=== PATIENT | male | born 1950 | race Caucasian/White ===

== ENCOUNTER 2017-04-03 10:33 | Emergency (ER) | payer OTHER, MEDICARE ==
[2017-04-03 10:49] VITALS: BMI 27.2
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
[2017-04-03] MEDS ORDERED: DUONEB 0.5 MG/3 MG NEB ONE (10:58)
[2017-04-03 11:01] LABS: ABG BASE EXCESS 0.2 mmol/L (-2.0-2.0); ABG HCO3 23.3 mmol/L (22-26)
[2017-04-03 11:02] LABS: ABG ALLEN TEST POS
[2017-04-03] MEDS ORDERED: SOLU-Medrol 125 MG VIAL IVP ONE (11:11)
[2017-04-03] MEDS ORDERED: DUONEB 0.5 MG/3 MG ONE (11:11)
[2017-04-03] MEDS ORDERED: SOLU-Medrol 125 MG VIAL ONE (11:11)
[2017-04-03 11:28] LABS: BASOPHILS # (AUTO) 0.1 X10^3/uL (0.0-0.1); BASOPHILS % (AUTO) 0.8 % (0.2-1.0); EOSINOPHILS # (AUTO) 0.2 x10^3/uL (0.0-0.2); EOSINOPHILS % (AUTO) 1.6 % (0.9-2.9); HEMATOCRIT 43.2 % (42.0-54.0); HEMOGLOBIN 14.8 g/dL (13.5-18.0); LYMPHOCYTES % (AUTO) 9.2 % (21.0-51.0); MEAN CORPUSCULAR HEMOGLOBIN 31.7 pg (27.0-34.0); MEAN CORPUSCULAR HGB CONC 34.3 g/dL (33.0-35.0); MEAN CORPUSCULAR VOLUME 92.4 fL (80.0-100.0); MEAN PLATELET VOLUME 7.8 fL (7.4-11.0); NEUTROPHILS # (AUTO) 8.7 x10^3/uL (2.2-4.8); NEUTROPHILS % (AUTO) 79.4 % (42.0-75.0); PLATELET COUNT 239 X10^3/uL (150.0-450.0); RED BLOOD COUNT 4.67 X10^6/uL (4.7-6.0); RED CELL DISTRIBUTION WIDTH 13.1 % (11.6-16.5)
[2017-04-03 11:40] LABS: BLOOD UREA NITROGEN 18 mg/dL (7-18); CALCIUM 8.5 mg/dL (8.5-10.1); CARBON DIOXIDE 30.2 mmol/L (21-32); CHLORIDE 103 mmol/L (98-107); COR NA(FOR HYPERGLY) 140 mmol/L (136-145); CREATININE 0.93 mg/dL (0.70-1.30); GLUCOSE 184 mg/dL (65-99); SODIUM 138 mmol/L (136-145); TROPONIN I < 0.02 ng/mL (0-1.5); eGFR BLACK RACES > 60 (>60); eGFR NON BLACK RACES > 60 (>60)
[2017-04-03 11:41] LABS: ALANINE AMINOTRANSFERASE 15 Units/L (12-78); ALBUMIN 3.2 g/dL (3.4-5.0); ALKALINE PHOSPHATASE 84 Units/L (46-116); ASPARTATE AMINO TRANSFERASE 15 Units/L (15-37); CKMB % 1.8 % (<4); COR CA(FOR HYPOALB) 9.1 mg/dL (8.5-10.1); CREATINE KINASE 56 Units/L (39-308); CREATINE KINASE MB < 1.0 ng/mL (0-4.0); TOTAL PROTEIN 7.3 g/dL (6.4-8.2)
[2017-04-03 11:44] LABS: B-TYPE NATRIURETIC PEPTIDE 67.9 pg/mL (0-79)
--- NOTE | 2017-04-03 11:46 | RAD ---
Chest, one view Indication: Shortness of breath Comparison: CT chest October 08, 2016 Findings: There is new dense airspace consolidation of the left lower lobe with air bronchograms. Sm all suspected bilateral effusions are also present. There are chronic appearing interstitial marking s throughout the remaining aerated lungs, compatible with pulmonary fibrosis. The cardiac silhouette is obscured by the left lower lobe infiltrate. The regional skeleton appears intact. Impression: 1. New dense airspace consolidation of the left lower lobe is likely on the basis of pneumonia. If t he patient does not present with clinical signs of infection, further evaluation with contrast CT is recommended given the possibility of an esophageal mass on the prior CT examination. Correlation wi patient history as well as follow up to complete resolution is recommended. 2. Small suspected bilateral effusions. Reported By:
[2017-04-03] MEDS ORDERED: FORTAZ or TAZICEF INJ 1 GM in NS 50 ML IV + SPIKE MINIBAG* 50 ML IV ONE (11:52)
[2017-04-03] MEDS ORDERED: NS 50 ML IV 50 ML IV ONE (12:50)
[2017-04-03] MEDS ORDERED: FORTAZ or TAZICEF INJ ONE (12:50)
[2017-04-03] MEDS ORDERED: NS 1000 ML 1,000 ML ONE (12:55)
[2017-04-03] MEDS ORDERED: NS 1000 ML 1,000 ML IV SCH (13:00)
[2017-04-03 13:39] VITALS: BP 159/83
[2017-04-03] MEDS ORDERED: ZOFRAN INJ 4 MG VIAL IVP ONE (13:39)
[2017-04-03] MEDS ORDERED: ZOFRAN INJ 4 MG VIAL ONE (13:41)
== END 2017-04-03 13:44 | disposition short-term general hospital (02) ==
LOC: ER 10:48
DX: J18.1 Lobar pneumonia, unspecified organism (principal); J84.10 Pulmonary fibrosis, unspecified; R94.31 Abnormal electrocardiogram [ECG] [EKG]
CPT/HCPCS: 36415; 36600; 71010; 80053; 82550; 82553; 82803; 83880; 84484; 85025; 87040; 93005; 93010; 94640; 96365; 96374; 96375; 99284; 99285; A4222; J0713; J2405; J2930; J7620

== ENCOUNTER 2017-04-26 12:01 | Inpatient (IN) | payer OTHER, MEDICARE ==
[2017-04-26] MEDS: NS 1000 ML 1,000 ML IV SCH (13:15)
[2017-04-26 13:36] LABS: BASOPHILS # (AUTO) 0.1 X10^3/uL (0.0-0.1); BASOPHILS % (AUTO) 0.6 % (0.2-1.0); EOSINOPHILS # (AUTO) 0.3 x10^3/uL (0.0-0.2); EOSINOPHILS % (AUTO) 3.3 % (0.9-2.9); HEMATOCRIT 40.1 % (42.0-54.0); HEMOGLOBIN 13.5 g/dL (13.5-18.0); LYMPHOCYTES # (AUTO) 1.1 X10^3/uL (1.3-2.9); LYMPHOCYTES % (AUTO) 10.7 % (21.0-51.0); MEAN CORPUSCULAR HEMOGLOBIN 31.2 pg (27.0-34.0); MEAN CORPUSCULAR HGB CONC 33.8 g/dL (33.0-35.0); MEAN CORPUSCULAR VOLUME 92.2 fL (80.0-100.0); MEAN PLATELET VOLUME 7.8 fL (7.4-11.0); MONOCYTES % (AUTO) 9.4 % (0.0-13.0); NEUTROPHILS # (AUTO) 7.8 x10^3/uL (2.2-4.8); PLATELET COUNT 187 X10^3/uL (150.0-450.0); RED BLOOD COUNT 4.34 X10^6/uL (4.7-6.0); RED CELL DISTRIBUTION WIDTH 13.7 % (11.6-16.5); WHITE BLOOD COUNT 10.3 X10^3/uL (3.6-10.0)
[2017-04-26 13:43] LABS: ABG ALLEN TEST POS; ABG BASE EXCESS 5.6 mmol/L (-2.0-2.0); ABG HCO3 29.8 mmol/L (22-26)
[2017-04-26 13:45] LABS: ALANINE AMINOTRANSFERASE 18 Units/L (12-78); ALKALINE PHOSPHATASE 87 Units/L (46-116); ASPARTATE AMINO TRANSFERASE 13 Units/L (15-37); BLOOD UREA NITROGEN 14 mg/dL (7-18); CALCIUM 8.1 mg/dL (8.5-10.1); CARBON DIOXIDE 30.2 mmol/L (21-32); CHLORIDE 103 mmol/L (98-107); COR CA(FOR HYPOALB) 8.9 mg/dL (8.5-10.1); COR NA(FOR HYPERGLY) 141 mmol/L (136-145); CREATININE 0.91 mg/dL (0.70-1.30); GLUCOSE 210 mg/dL (65-99); SODIUM 138 mmol/L (136-145); TOTAL PROTEIN 6.7 g/dL (6.4-8.2); eGFR BLACK RACES > 60 (>60); eGFR NON BLACK RACES > 60 (>60)
[2017-04-26] MEDS ORDERED: PROVENTIL NEB TX 0.083% 2.5MG/ 3ML NEB PRN (14:05)
--- NOTE | 2017-04-26 14:46 | RAD ---
Chest, one view Indication: Hypoxia and shortness of breath Comparison: April 03, 2017 Findings: Patchy left lower lobe opacities appear stable to only minimally improved since prior exam . Chronic bilateral interstitial opacities, compatible with pulmonary fibrosis appear essentially un changed. No new focal infiltrate, significant effusion or pneumothorax is identified. The cardiac si lhouette is stable in size. Impression: Persistent left lower lobe infiltrate, stable to only minimally improved since April 03, 2017. Furthe r evaluation with CT is again recommended, if clinically indicated. Reported By:
[2017-04-26 15:12] LABS: BILIRUBIN,URINE NEGATIVE (NEGATIVE); BLOOD/HEMOGLOBIN,URINE NEGATIVE (NEGATIVE); GLUCOSE, URINE 3+ (NEGATIVE); KETONES,URINE NEGATIVE (NEGATIVE); LEUKOCYTE ESTERASE ,URINE NEGATIVE (NEGATIVE); NITRITES,URINE NEGATIVE (NEGATIVE); PROTEIN,URINE 1+ (NEGATIVE); UROBILINOGEN,URINE NORMAL (NORMAL)
[2017-04-26 15:21] LABS: AMORPHOUS SEDIMENT,UR 1+ /HPF (NEGATIVE); APPEARANCE,URINE HAZY (CLEAR); BACTERIA,URINE TRACE /HPF (NEGATIVE); COLOR,URINE YELLOW (YELLOW); RBC,URINE 0-2 /HPF (NEGATIVE); SQUAMOUS EPITHELIAL CELL,UR RARE /HPF (NEGATIVE)
[2017-04-26] MEDS ORDERED: LORAZEPAM 2 MG PO PRN (16:08)
[2017-04-26 16:16] VITALS: BMI 25.4
[2017-04-26] MEDS ORDERED: SALINE 3% 15 ML NEB TX ONE (16:35)
[2017-04-26] MEDS: DUONEB 0.5 MG/3 MG NEB SCH ×2 (16:52→21:07)
[2017-04-26] MEDS: PIRFENIDONE PO SCH (16:56)
[2017-04-26] MEDS ORDERED: SALINE 3% 15 ML NEB TX NEB ONE (16:56)
[2017-04-26] MEDS ORDERED: GLUCOPHAGE ONE (17:39)
[2017-04-26] MEDS: GLUCOPHAGE PO SCH (17:46)
[2017-04-26] MEDS: SNACK - Diabetic Appropriate PO SCH (19:52)
[2017-04-26] MEDS: JANUVIA PO SCH (20:59)
[2017-04-26] MEDS: CRESTOR TAB 10 MG PO SCH (20:59)
[2017-04-26] MEDS: FLONASE NASAL SPRAY ENOSTRIL SCH (21:00)
[2017-04-26] MEDS ORDERED: PATIENT'S HOME MEDICATION (Metformin Hcl [Metformin Hcl Er] 500 MG) PO SCH (21:00)
[2017-04-26] MEDS: ATIVAN TAB 1 MG PO PRN (21:01)
[2017-04-26] MEDS: PULMICORT NEB TX 0.5 MG NEB SCH (21:07)
--- NOTE | 2017-04-26 21:55 | DR.H&P ---
H&P - History & Physical for Day of: H&P Date: 04/26/17 - Chief Complaint Chief Complaint: SHORTNESS OF BREATH, COUGH - Allergies Allergies/Adverse Reactions: Allergies Allergy/AdvReac Type Severity Reaction Status Date / Time No Known Drug Allergies Allergy Verified 04/03/17 13:40 - History of Present Illness History of Present Illness: IS A 66 YEAR OLD PATIENT OF OURS. HE WAS A DIRECT ADMISSION FOR COMPLAINTS OF SHORTNESS OF BREATH AND COUGH. FAMILY REPORTED THAT PATIENT WAS AT HOME VISITING WITH FAMILY WHEN HE SUDDENLY BECAME SHORT OF BREATH. PATIENT REPORTS THAT HIS OXYGEN SATURATION DROPPED TO 77% ON 4LPM NASAL CANNULA. HE REPORTS A NON PRODUCTIVE COUGH AND FEVER FOR THE PAST SEVERAL DAYS. ON EXAMINATION, LUNGS WERE NOTED WITH WHEEZING BILATERALLY. PATIENT HAS A HISTORY OF PULMONARY FIBROSIS AND END STAGE RESPIRATORY FAILURE. HE WAS RECENTLY RELEASED FROM [facility] IN [place], [place]. WE WILL OBTAIN RECORDS WITH PATIENT'S PERMISSION. WE ADMITTED PATIENT FOR FURTHER TREATMENT AND EVALUATION. WE PLANNED TO CHECK CBC, CMP, ABG, AND CHEST XRAY ON ADMISSION. ON ADMISSION, VITALS WERE 99.5, 99, 23, 90%NC 2LPM, 127/86. CBC WNL EXCEPT WBC 10.3, RBC 4.34, Hct 40.1. CMP WNL EXCEPT Glucose 210, Calcium 8.1, AST 13, Albumin 3.0, A/G Ratio 0.8. ABG REPORTS PH 7.470, PO2 48.0, HCO3 29.8, O2 saturation 86.0, Base Excess 5.6. BLOOD CULTURES AND SPUTUM CULTURES ARE PENDING. CHEST XRAY WAS OBTAINED AND REPORTED PERSISTENT LEFT LOWER LOBE INFILTRATE, STABLE TO ONLY MINIMALLY IMPROVED SINCE APRIL 03, 2017 XRAY. PATIENT WAS STARTED ON SUPPLEMENTAL OXYGEN, NORMAL SALINE AT 50ML/HR, DUONEB AND PULMICORT NEB TX. WE WILL REVIEW HOME MEDICATIONS, RECHECK LABS, AND FOLLOW UP WITH PATIENT IN AM. - Past Medical History Past Medical History: Anxiety, Arthritis, COPD, Depression, Diabetes, Dyslipidemia, Gout, Sleep Apnea Additional Medical History: EMPHYSEMA, IDIOPATHIC PULMONARY FIBROSIS, - Past Surgical History Surgical History: Other Additional Surgical History: LEFT FINGER SURGERY, NERVE REPAIR, HYDROCELE - Family History Family Medical History: AR, Coronary Artery Disease - Social History Does patient currently use any type of tobacco product: No Have you used tobacco products in the last 12 months: No Type of Tobacco Use: None How many years tobacco product used: 20 Does any household member use tobacco: Yes Alcohol Use: Heavy Drug Use: Prescription Drugs, Methamphetamine, Marijuana - Medications Home Medications: Albuterol Sulfate [VENTOLIN or PROAIR HFA Inhaler *] 2 puff PO Q4H PRN 04/26/17 [History Confirmed 04/26/17] Pirfenidone [Esbriet] 3 tab PO TIDWM 04/26/17 [History Confirmed 04/26/17] - Review of Systems Constitutional: Fever, Weakness Eyes: No Symptoms Reported. denies: See HPI, Pain, Vision Change, Conjunctivae Inflammation, Eyelid Inflammation, Redness, Other ENT: No Symptoms Reported. denies: See HPI, Ear Pain, Ear Discharge, Nose Pain , Nose Discharge, Nose Congestion, Mouth Pain, Mouth Swelling, Throat Pain, Throat Swelling, Other Respiratory: See HPI, Cough, Shortness of Breath, Wheezing Cardiovascular: No Symptoms Reported. denies: Chest Pain, See HPI, Palpitations , Orthopnea, Paroxysmal Noc. Dyspnea, Edema, Light Headedness, Other Gastrointestinal: No Symptoms Reported. denies: See HPI, Nausea, Vomiting, Abdominal Pain, Diarrhea, Constipation, Melena, Hematochezia, Other Genitourinary: No Symptoms Reported. denies: See HPI, Dysuria, Frequency, Incontinence, Hematuria, Retention, Other Musculoskeletal: No Symptoms Reported. denies: See HPI, Shoulder Pain, Arm Pain , Back Pain, Hand Pain, Leg Pain, Foot Pain, Neck Pain, Other Skin: No Symptoms Reported. denies: See HPI, Rash, Lesions, Jaundice, Bruising , Wound, Ecchymosis, Other Neurological: No Symptoms Reported. denies: See HPI, Weakness, Numbness, Incoordination, Change in Speech, Confusion, Seizures, Other - Physical Exam Vital Signs: Temperature 98.7 F Pulse Rate [Right Brachial] 103 Pulse Rate 91 Respiratory Rate 21 Blood Pressure [Right Arm] 141/86 Blood Pressure 159/83 O2 Sat by Pulse Oximetry 90 Oriented: Normal. negative: Time, Person, Place, Not Oriented, Unable to test, Other Eyes: Normal. negative: Blurred Vision, Diplopia, Discharge, Pain, Redness, Photophobia, Other Ear: Normal. negative: Right, Left, Swelling, Ecchymosis, Hemotypanum, Abrasion , Laceration Nose: Normal. negative: Injected, Discharge, Blood, Other Throat: Normal. negative: Tonsillar Hypertrophy, Red, Exudate, Dry, Other Respiratory: Wheezes Throughout. negative: Clear Throughout, Diminished Throughout, Rhonchi Throughout, Rales Throughout, RUL Clear, RML Clear, RLL Clear, MARGO Clear, LML Clear, LLL Clear, RUL Diminished, RML Diminished, RLL Diminished, MARGO Diminished, LML Diminished, LLL Diminished, RUL Absent, RML Absent, RLL Absent, MARGO Absent, LML Absent, LLL Absent, RUL Rhonchi, RML Rhonchi , RLL Rhonchi, MARGO Rhonchi, LML Rhonchi, LLL Rhonchi, RUL Insp. Wheeze, RML Insp. Wheeze, RLL Insp. Wheeze, MARGO Insp.Wheeze, LML Insp.Wheeze, LLL Insp.Wheeze, RUL Exp. Wheeze, RML Exp. Wheeze, RLL Exp. Wheeze, MARGO Exp. Wheeze , LML Exp. Wheeze, LLL Exp. Wheeze, RUL Rales, RML Rales, RLL Rales, MARGO Rales, LML Rales, LLL Rales, RUL Rub, RML Rub, RLL Rub, MARGO Rub, LML Rub, LLL Rub, RUL Squeak, RML Squeak, RLL Squeak, MARGO Squeak, LML Squeak, LLL Squeak Cardiovascular: Normal. negative: Tachycardia, Bradycardia, Irregular, S3, S4, Systolic, Diastolic, Murmur, Edema, Other : Normal. negative: Dysuria, Hematuria, Frequency, Discharge, Testicular Pain , Bleeding, , Other Auscultation: Bowel Sounds: Normal. negative: Bruit, Absent, Increased, Decreased, High Pitched, Other Palpation: Normal. negative: Spleen Enlarged, Liver Enlarged, Mass Pulsatile, Other Tenderness: Normal. negative: Diffuse, RUQ, RLQ, LUQ, LLQ, Epigastric, Periumbilical, Suprapubic, Mild, Moderate, Severe, Rebound, Guarding, Rigidity, Other Skin: Normal. negative: Decreased Turgur, Rash, Papular, Macular, Maculopapular , Vesicular, Pustular, Petechial, Red, Tender, Hot, Diaphoresis, Wound, Bruising , Ecchymosis, Other Musculoskeletal: Normal. negative: Right, Left, Shoulder, Clavicle, Arm, Elbow , Forearm, Wrist, Hand, Hip, Thigh, Knee, Leg, Ankle, Foot, Back:Thoracic, Back: Lumbar, Back:Midline, Back:Paraspinous, Pelvis, Swelling, Tender, Deformity, Pulse Deficit, Motor Deficit, Sensory Deficit, Instability, Crepitance Psychiatric: Normal. negative: Anxiety, Depression, Agitation, Other Mood Description: Calm. negative: Angry, Apathetic, Depressed, Fearful, Flat, Happy, Hostile, Sad, Suspicious, Withdrawn, Anxious, Appropriate, Labile Affect: Normal. negative: Angry, Anxious, Depressed, Flat, Hysterical, Quiet, Violent Speech Pattern: Clear. negative: Appropriate, Unclear, Inappropriate, Delayed, Slurred, Excessive, Aphasic, Artificially Ventilated - Assessment/Plan (1) Pulmonary fibrosis Status: Acute Plan: SUPPLEMENTAL OXYGEN, DUONEB AND PULMICORT INHALERS, MONITOR ABG AND LABS, CONTINUE TO MONITOR PATIENT. (2) [id number] respiratory failure Qualifiers: Respiratory failure complication: hypoxia Qualified Code(s): J96.21 - Acute and chronic respiratory failure with hypoxia Status: Acute Plan: SUPPLEMENTAL OXYGEN, DUONEB AND PULMICORT INHALERS, MONITOR ABG AND LABS, CONTINUE TO MONITOR PATIENT.
[2017-04-27] MEDS: NORCO 10/325 TAB PO PRN ×2 (04:54→11:56)
[2017-04-27] MEDS ORDERED: GLUCOPHAGE ONE ×3 (06:04→17:20)
[2017-04-27 06:35] LABS: ALANINE AMINOTRANSFERASE 16 Units/L (12-78); ALKALINE PHOSPHATASE 76 Units/L (46-116); ASPARTATE AMINO TRANSFERASE 13 Units/L (15-37); BASOPHILS # (AUTO) 0.1 X10^3/uL (0.0-0.1); BASOPHILS % (AUTO) 0.6 % (0.2-1.0); BLOOD UREA NITROGEN 9 mg/dL (7-18); CALCIUM 8.2 mg/dL (8.5-10.1); CARBON DIOXIDE 27.2 mmol/L (21-32); CHLORIDE 102 mmol/L (98-107); COR NA(FOR HYPERGLY) 139 mmol/L (136-145); CREATININE 0.82 mg/dL (0.70-1.30); EOSINOPHILS # (AUTO) 0.2 x10^3/uL (0.0-0.2); EOSINOPHILS % (AUTO) 2.2 % (0.9-2.9); GLUCOSE 170 mg/dL (65-99); HEMATOCRIT 39.4 % (42.0-54.0); HEMOGLOBIN 13.4 g/dL (13.5-18.0); LYMPHOCYTES # (AUTO) 1.2 X10^3/uL (1.3-2.9); LYMPHOCYTES % (AUTO) 10.8 % (21.0-51.0); MEAN CORPUSCULAR HEMOGLOBIN 31.5 pg (27.0-34.0); MEAN CORPUSCULAR HGB CONC 34.1 g/dL (33.0-35.0); MEAN CORPUSCULAR VOLUME 92.3 fL (80.0-100.0); MEAN PLATELET VOLUME 8.4 fL (7.4-11.0); MONOCYTES % (AUTO) 9.6 % (0.0-13.0); NEUTROPHILS # (AUTO) 8.3 x10^3/uL (2.2-4.8); NEUTROPHILS % (AUTO) 76.8 % (42.0-75.0); PLATELET COUNT 177 X10^3/uL (150.0-450.0); RED BLOOD COUNT 4.27 X10^6/uL (4.7-6.0); RED CELL DISTRIBUTION WIDTH 13.7 % (11.6-16.5); SODIUM 137 mmol/L (136-145); TOTAL PROTEIN 6.8 g/dL (6.4-8.2); WHITE BLOOD COUNT 10.9 X10^3/uL (3.6-10.0); eGFR BLACK RACES > 60 (>60); eGFR NON BLACK RACES > 60 (>60)
[2017-04-27] MEDS: JANUVIA PO SCH (08:07)
[2017-04-27] MEDS: GLUCOPHAGE PO SCH ×2 (08:07→17:32)
[2017-04-27] MEDS: FLONASE NASAL SPRAY ENOSTRIL SCH (08:07)
[2017-04-27] MEDS: PIRFENIDONE PO SCH ×3 (08:08→17:34)
[2017-04-27] MEDS: ATIVAN TAB 1 MG PO PRN ×3 (08:47→21:06)
[2017-04-27] MEDS ORDERED: JANUVIA PO SCH (09:00)
[2017-04-27] MEDS: ZOFRAN INJ 4 MG VIAL IVP PRN ×2 (09:37→20:30)
[2017-04-27] MEDS: PULMICORT NEB TX 0.5 MG NEB SCH ×2 (09:44→21:00)
[2017-04-27] MEDS: DUONEB 0.5 MG/3 MG NEB SCH ×4 (09:44→21:00)
[2017-04-27] MEDS: NS 1000 ML 1,000 ML IV SCH ×3 (17:34→19:14)
[2017-04-27] MEDS: SNACK - Diabetic Appropriate PO SCH (19:30)
[2017-04-27] MEDS: CRESTOR TAB 10 MG PO SCH (21:06)
[2017-04-27] MEDS: LANTISEPTIC TOP SCH (21:33)
[2017-04-27] MEDS ORDERED: TYLENOL 325 MG TAB PO PRN (22:26)
--- NOTE | 2017-04-27 23:21 | RAD ---
EXAM: Chest X-ray INDICATION: Shortness of breath COMPARISION: Prior exam from April 26, 2017 TECHNIQUE: AP, single view FINDINGS: Coarse interstitial markings are seen throughout both lungs. Consolidation is identified in the left lingula and both lower lobes. There is a small left pleural effusion. The cardiac silhouette is mil dly enlarged. The mediastinum appears unremarkable. No pneumothorax. The regional skeleton is intact . IMPRESSION: There is cardiomegaly with diffuse coarse interstitial markings bilaterally and areas consolidation in both lung bases. Findings may be secondary to congestive heart failure or pneumonia. Reported By:
[2017-04-27] MEDS ORDERED: MAXIPIME VIAL 1 GM ONE (23:33)
[2017-04-27] MEDS ORDERED: NS 50 ML IV 50 ML IV ONE (23:36)
[2017-04-27] MEDS: SOLU-Medrol 125 MG VIAL IVP SCH (23:57)
[2017-04-27] MEDS: MAXIPIME 1 GM IV PREMIX 1 GM/50 ML BAG IV SCH (23:57)
[2017-04-28] MEDS ORDERED: TYLENOL SUPP 650 MG PR PRN (00:01)
[2017-04-28] MEDS ORDERED: LASIX IVP ONE (00:37)
[2017-04-28] MEDS ORDERED: HALDOL INJ IM ONE (01:07)
[2017-04-28 01:10] LABS: ABG ALLEN TEST POS; ABG HCO3 25.2 mmol/L (22-26)
[2017-04-28] MEDS ORDERED: HALDOL INJ ONE (01:15)
[2017-04-28 01:16] LABS: BILIRUBIN,URINE NEGATIVE (NEGATIVE); BLOOD/HEMOGLOBIN,URINE 2+ (NEGATIVE); GLUCOSE, URINE 3+ (NEGATIVE); KETONES,URINE 3+ (NEGATIVE); LEUKOCYTE ESTERASE ,URINE NEGATIVE (NEGATIVE); NITRITES,URINE NEGATIVE (NEGATIVE); PROTEIN,URINE 2+ (NEGATIVE); UROBILINOGEN,URINE NORMAL (NORMAL)
[2017-04-28 01:18] LABS: APPEARANCE,URINE CLEAR (CLEAR); COLOR,URINE YELLOW (YELLOW)
[2017-04-28 01:22] LABS: BACTERIA,URINE TRACE /HPF (NEGATIVE); MUCUS,URINE MANY /HPF (NEGATIVE); RBC,URINE 0-3 /HPF (NEGATIVE); SQUAMOUS EPITHELIAL CELL,UR RARE /HPF (NEGATIVE)
[2017-04-28] MEDS ORDERED: HALDOL INJ IVP ONE (01:29)
[2017-04-28] MEDS ORDERED: ZITHROMAX INJ 500 MG VIAL IV ONE (01:33)
[2017-04-28] MEDS ORDERED: NS 250 ML IV 250 ML IV ONE (01:33)
[2017-04-28] MEDS: ZITHROMAX INJ 500 MG VIAL 500 MG in NS 250 ML IV 250 ML IV SCH ×2 (01:40→09:39)
[2017-04-28] MEDS ORDERED: ATIVAN INJ 2 MG VIAL IVP ONE (01:45)
[2017-04-28] MEDS: LANTISEPTIC TOP SCH ×3 (05:19→21:20)
[2017-04-28] MEDS: SOLU-Medrol 125 MG VIAL IVP SCH ×2 (05:19→13:35)
[2017-04-28] MEDS: HumuLIN R SUBCUT PRN ×3 (05:33→20:14)
[2017-04-28 05:37] LABS: BASOPHILS % (AUTO) 0.2 % (0.2-1.0); HEMATOCRIT 40.3 % (42.0-54.0); HEMOGLOBIN 13.6 g/dL (13.5-18.0); LYMPHOCYTES # (AUTO) 0.5 X10^3/uL (1.3-2.9); LYMPHOCYTES % (AUTO) 5.2 % (21.0-51.0); MEAN CORPUSCULAR HEMOGLOBIN 31.6 pg (27.0-34.0); MEAN CORPUSCULAR HGB CONC 33.6 g/dL (33.0-35.0); MEAN CORPUSCULAR VOLUME 93.9 fL (80.0-100.0); MONOCYTES # (AUTO) 0.4 x10^3/uL (0.3-0.8); MONOCYTES % (AUTO) 3.6 % (0.0-13.0); NEUTROPHILS # (AUTO) 9.6 x10^3/uL (2.2-4.8); PLATELET COUNT 150 X10^3/uL (150.0-450.0); RED CELL DISTRIBUTION WIDTH 13.8 % (11.6-16.5); WHITE BLOOD COUNT 10.5 X10^3/uL (3.6-10.0)
[2017-04-28 05:42] LABS: ALANINE AMINOTRANSFERASE 16 Units/L (12-78); ALBUMIN 2.9 g/dL (3.4-5.0); ALKALINE PHOSPHATASE 75 Units/L (46-116); ASPARTATE AMINO TRANSFERASE 15 Units/L (15-37); BLOOD UREA NITROGEN 12 mg/dL (7-18); CALCIUM 8.3 mg/dL (8.5-10.1); CARBON DIOXIDE 26.8 mmol/L (21-32); CHLORIDE 101 mmol/L (98-107); COR CA(FOR HYPOALB) 9.2 mg/dL (8.5-10.1); COR NA(FOR HYPERGLY) 141 mmol/L (136-145); CREATININE 1.21 mg/dL (0.70-1.30); GLUCOSE 303 mg/dL (65-99); SODIUM 136 mmol/L (136-145); TOTAL PROTEIN 7.2 g/dL (6.4-8.2); eGFR BLACK RACES > 60 (>60); eGFR NON BLACK RACES > 60 (>60)
[2017-04-28 06:00] LABS: BAND NEUTROPHILS % 3 % (0-10); PLATELET MORPHOLOGY COMMENT NORMAL (NORMAL)
[2017-04-28] MEDS ORDERED: GLUCOPHAGE ONE ×2 (07:47→16:27)
[2017-04-28] MEDS: ATIVAN TAB 1 MG PO PRN ×3 (07:51→20:02)
[2017-04-28] MEDS: GLUCOPHAGE PO SCH ×2 (07:51→16:34)
[2017-04-28] MEDS: PIRFENIDONE PO SCH ×3 (07:52→16:35)
[2017-04-28] MEDS: JANUVIA PO SCH (09:40)
[2017-04-28] MEDS: FLONASE NASAL SPRAY ENOSTRIL SCH (09:40)
[2017-04-28] MEDS: XOPENEX 1.25 MG/3 ML NEBULE NEB SCH ×4 (10:03→21:09)
[2017-04-28] MEDS: PULMICORT NEB TX 0.5 MG NEB SCH ×2 (10:03→21:09)
[2017-04-28] MEDS: MAXIPIME 1 GM IV PREMIX 1 GM/50 ML BAG IV SCH ×2 (11:00→20:01)
[2017-04-28] MEDS ORDERED: NS 50 ML IV + SPIKE MINIBAG* 50 ML IV ONE ×2 (11:31→19:50)
[2017-04-28] MEDS: MILK OF MAGNESIA PO SCH (15:40)
[2017-04-28] MEDS: CRESTOR TAB 10 MG PO SCH (20:01)
[2017-04-28] MEDS: SNACK - Diabetic Appropriate PO SCH (20:02)
[2017-04-28] MEDS: COLACE CAP 100 MG PO SCH (20:02)
[2017-04-29] MEDS: ATIVAN TAB 1 MG PO PRN ×4 (01:29→20:41)
[2017-04-29] MEDS: LANTISEPTIC TOP SCH ×3 (05:00→22:19)
[2017-04-29] MEDS: HumuLIN R SUBCUT PRN ×3 (05:00→15:56)
[2017-04-29 05:24] LABS: ALANINE AMINOTRANSFERASE 16 Units/L (12-78); ALBUMIN 2.7 g/dL (3.4-5.0); ALKALINE PHOSPHATASE 74 Units/L (46-116); ASPARTATE AMINO TRANSFERASE 14 Units/L (15-37); BLOOD UREA NITROGEN 22 mg/dL (7-18); CALCIUM 8.8 mg/dL (8.5-10.1); CARBON DIOXIDE 29.6 mmol/L (21-32); CHLORIDE 104 mmol/L (98-107); COR CA(FOR HYPOALB) 9.8 mg/dL (8.5-10.1); COR NA(FOR HYPERGLY) 142 mmol/L (136-145); CREATININE 0.86 mg/dL (0.70-1.30); GLUCOSE 245 mg/dL (65-99); SODIUM 139 mmol/L (136-145); TOTAL PROTEIN 6.9 g/dL (6.4-8.2); eGFR BLACK RACES > 60 (>60); eGFR NON BLACK RACES > 60 (>60)
[2017-04-29 05:50] LABS: BASOPHILS % (AUTO) 0.2 % (0.2-1.0); HEMATOCRIT 38.9 % (42.0-54.0); HEMOGLOBIN 12.9 g/dL (13.5-18.0); LYMPHOCYTES # (AUTO) 0.9 X10^3/uL (1.3-2.9); LYMPHOCYTES % (AUTO) 5.1 % (21.0-51.0); MEAN CORPUSCULAR HEMOGLOBIN 31.1 pg (27.0-34.0); MEAN CORPUSCULAR HGB CONC 33.1 g/dL (33.0-35.0); MEAN PLATELET VOLUME 8.6 fL (7.4-11.0); MONOCYTES # (AUTO) 1.4 x10^3/uL (0.3-0.8); MONOCYTES % (AUTO) 7.6 % (0.0-13.0); NEUTROPHILS # (AUTO) 15.8 x10^3/uL (2.2-4.8); NEUTROPHILS % (AUTO) 87.1 % (42.0-75.0); PLATELET COUNT 197 X10^3/uL (150.0-450.0); RED BLOOD COUNT 4.14 X10^6/uL (4.7-6.0); RED CELL DISTRIBUTION WIDTH 13.8 % (11.6-16.5)
[2017-04-29 06:03] LABS: WHITE BLOOD COUNT 19.1 X10^3/uL (3.6-10.0)
[2017-04-29 06:04] LABS: PLATELET MORPHOLOGY COMMENT NORMAL (NORMAL)
--- NOTE | 2017-04-29 06:58 | RAD ---
HISTORY: Shortness of breath, low O2 sats Study: Chest AP portable Comparison: April 27, 2017 Findings: The heart remains enlarged. Mild pulmonary venous congestion is present. The lungs are hypoinflated. Confluent infiltrates are present in the right lung base more prominent than on the prior examinati on. Similar findings are present in the left lung base unchanged from the prior examination. The upp er lung lizama are clear. These findings are superimposed on interstitial lung changes. No pleural e ffusions are identified. The bony thorax is unremarkable. IMPRESSION: Increasing consolidation in the right lung base Left basilar lung infiltrate unchanged Hypo inflation Cardiomegaly without definite congestive heart failure Reported By:
[2017-04-29] MEDS ORDERED: GLUCOPHAGE ONE ×2 (07:43→17:17)
[2017-04-29] MEDS: GLUCOPHAGE PO SCH ×2 (07:47→16:59)
[2017-04-29] MEDS: PIRFENIDONE PO SCH ×3 (07:47→17:00)
[2017-04-29] MEDS ORDERED: NS 500 ML IV 500 ML IV ONE (09:00)
[2017-04-29] MEDS: PULMICORT NEB TX 0.5 MG NEB SCH ×2 (09:03→21:09)
[2017-04-29] MEDS: XOPENEX 1.25 MG/3 ML NEBULE NEB SCH ×4 (09:03→21:11)
[2017-04-29] MEDS: JANUVIA PO SCH (09:21)
[2017-04-29] MEDS: FLONASE NASAL SPRAY ENOSTRIL SCH (09:21)
[2017-04-29] MEDS: MILK OF MAGNESIA PO SCH (09:22)
[2017-04-29] MEDS: MAXIPIME 1 GM IV PREMIX 1 GM/50 ML BAG IV SCH ×2 (09:22→20:41)
[2017-04-29] MEDS: ZITHROMAX INJ 500 MG VIAL 500 MG in NS 250 ML IV 250 ML IV SCH (09:22)
--- NOTE | 2017-04-29 10:42 | PCM.PROG ---
Progress Note - Progress Note for Day of Date: 04/29/17 - Subjective Subjective: WAS A DIRECT ADMISSION FOR RESPIRATORY FAILURE AND PULMONARY FIBROSIS. HE WAS ALERT AND ORIENTED, SITTING UP IN BED ON MORNING ROUNDS. HE IS NOTED WEARING NON-REBREATHER AT THIS TIME. PATIENT REPORTS SHORTNESS OF BREATH, BUT STATES THAT HE FEELS BETTER THAN HE HAS SINCE SATURDAY. LUNGS ARE NOTED WITH WHEEZING BILATERALLY ON AUSCULTATION. VITALS THIS AM ARE 99.2-89-25-94%-118/65. CBC WNL EXCEPT WBC CRITICALLY HIGH AT 19.1-RBC 4.14, HGB 12.9, HCT 38.9. CMP WNL EXCEPT BUN 22, GLUCOSE 245, AST 14, ALBUMIN 2.7. CHEST XRAY REPORTS INCREASING CONSOLIDATION IN THE RIGHT LUNG BASE, LEFT BASILAR LUNG INFILTRATE UNCHANGED, HYPOINFLATION, CARDIOMEGALY WITHOUT DEFINITE CONGESTIVE HEART FAILURE. WE WILL CONTINUE WITH CURRENT PLAN OF CARE, RECHECK LABS, AND FOLLOW UP WITH PATIENT IN AM. - Past Medical Family Social History Past Med/Fam/Surg Hx: No changes since H&P Allergies: Allergies No Known Drug Allergies Allergy (Verified 04/03/17 13:40) - Review of Systems ROS: No change since H&P - Vital Signs and I&O's Vital Signs: Temperature 98.0 F Pulse Rate [Right Brachial] 94 Pulse Rate 99 Respiratory Rate 25 Blood Pressure [Right Arm] 110/71 Blood Pressure 159/83 O2 Sat by Pulse Oximetry 96 Intake and Output: Intake & Output 04/26/17 04/27/17 04/28/17 04/29/17 11:59 11:59 11:59 11:59 Intake Total 510 1312 1390 Output Total 1100 2975 925 Balance -590 -1663 465 - Physical Exam Oriented: Normal. negative: Time, Person, Place, Not Oriented, Unable to test, Other Eyes: Normal. negative: Blurred Vision, Diplopia, Discharge, Pain, Redness, Photophobia, Other Ear: Normal. negative: Right, Left, Swelling, Ecchymosis, Hemotypanum, Abrasion , Laceration Nose: Normal. negative: Injected, Discharge, Blood, Other Throat: Normal. negative: Tonsillar Hypertrophy, Red, Exudate, Dry, Other Respiratory: Right, Left, Wheezes Cardiovascular: Normal. negative: Tachycardia, Bradycardia, Irregular, S3, S4, Systolic, Diastolic, Murmur, Edema, Other : Normal. negative: Dysuria, Hematuria, Frequency, Discharge, Testicular Pain , Bleeding, , Other Auscultation: Bowel Sounds: Normal. negative: Bruit, Absent, Increased, Decreased, High Pitched, Other Palpation: Normal Tenderness: Normal. negative: Diffuse, RUQ, RLQ, LUQ, LLQ, Epigastric, Periumbilical, Suprapubic, Mild, Moderate, Severe, Rebound, Guarding, Rigidity, Other Skin: Normal. negative: Decreased Turgur, Rash, Papular, Macular, Maculopapular , Vesicular, Pustular, Petechial, Red, Tender, Hot, Diaphoresis, Wound, Bruising , Ecchymosis, Other Musculoskeletal: Normal. negative: Right, Left, Shoulder, Clavicle, Arm, Elbow , Forearm, Wrist, Hand, Hip, Thigh, Knee, Leg, Ankle, Foot, Back:Thoracic, Back: Lumbar, Back:Midline, Back:Paraspinous, Pelvis, Swelling, Tender, Deformity, Pulse Deficit, Motor Deficit, Sensory Deficit, Instability, Crepitance Psychiatric: Normal. negative: Anxiety, Depression, Agitation, Other Mood Description: Calm. negative: Angry, Apathetic, Depressed, Fearful, Flat, Happy, Hostile, Sad, Suspicious, Withdrawn, Anxious, Appropriate, Labile Affect: Normal. negative: Angry, Anxious, Depressed, Flat, Hysterical, Quiet, Violent Speech Pattern: Clear, Appropriate - Laboratory and Diagnostics Result Diagrams: 04/29/17 04:15 04/29/17 04:15 Labs: 04/27/17 23:24 Sputum - Expectorated Sputum Sputum Culture - Preliminary 04/27/17 23:24 Sputum - Expectorated Sputum - Final 04/26/17 14:16 Urine,Clean Catch Urine Culture - Final 04/26/17 16:25 Blood Blood Culture - Preliminary 04/26/17 16:15 Blood Blood Culture - Preliminary 04/26/17 17:17 Sputum - Expectorated Sputum Sputum Culture - Final 04/26/17 17:17 Sputum - Expectorated Sputum - Final Laboratory WBC 19.1 X10^3/uL (3.6-10.0) H D 04/29/17 04:15 RBC 4.14 X10^6/uL (4.7-6.0) L 04/29/17 04:15 Hgb 12.9 g/dL (13.5-18.0) L 04/29/17 04:15 Hct 38.9 % (42.0-54.0) L 04/29/17 04:15 MCV 94.0 fL (80.0-100.0) 04/29/17 04:15 MCH 31.1 pg (27.0-34.0) 04/29/17 04:15 MCHC 33.1 g/dL (33.0-35.0) 04/29/17 04:15 RDW 13.8 % (11.6-16.5) 04/29/17 04:15 Plt Count 197 X10^3/uL (150.0-450.0) 04/29/17 04:15 Plt Count Comment Adequate (ADEQUATE) 04/29/17 04:15 MPV 8.6 fL (7.4-11.0) 04/29/17 04:15 Neut % 87.1 % (42.0-75.0) H 04/29/17 04:15 Lymph % 5.1 % (21.0-51.0) L 04/29/17 04:15 [place] % 7.6 % (0.0-13.0) 04/29/17 04:15 Eos % 0.0 % (0.9-2.9) L 04/29/17 04:15 Baso % 0.2 % (0.2-1.0) 04/29/17 04:15 Neut # 15.8 x10^3/uL (2.2-4.8) H 04/29/17 04:15 Lymph # 0.9 X10^3/uL (1.3-2.9) L 04/29/17 04:15 [place] # 1.4 x10^3/uL (0.3-0.8) H 04/29/17 04:15 Eos # 0.0 x10^3/uL (0.0-0.2) 04/29/17 04:15 Baso # 0.0 X10^3/uL (0.0-0.1) 04/29/17 04:15 Absolute Nucleated RBC 0.0 /100WBC 04/29/17 04:15 Total Counted 100 04/28/17 05:15 Neutrophils % (Manual) 88 % (39-76) H 04/28/17 05:15 Band Neutrophils % 3 % (0-10) 04/28/17 05:15 Lymphocytes % (Manual) 6 % (13-43) L 04/28/17 05:15 Monocytes % (Manual) 2 % (4-9) L 04/28/17 05:15 Eosinophils % (Manual) 1 % (0-6) 04/28/17 05:15 Plt Morphology Comment Normal (NORMAL) 04/29/17 04:15 RBC Morphology Normal (NORMAL) 04/29/17 04:15 Sample Site R rad 04/28/17 00:39 ABG pH 7.430 (7.35-7.45) 04/28/17 00:39 ABG pCO2 38.0 mmHg (35.0-45.0) 04/28/17 00:39 ABG pO2 79.0 mmHg (80.0-100.0) L 04/28/17 00:39 ABG HCO3 25.2 mmol/L (22-26) 04/28/17 00:39 ABG O2 Saturation 96.0 % (90-100) 04/28/17 00:39 ABG Base Excess 1.0 mmol/L (-2.0-2.0) 04/28/17 00:39 Brad Test Pos 04/28/17 00:39 A-a Gradient 301.0 mmHg 04/28/17 00:39 FiO2 60.000 04/28/17 00:39 Blood Gas Comments Cristi well, afh 04/28/17 00:39 Sodium 139 mmol/L (136-145) 04/29/17 04:15 Corrected Sodium 142 mmol/L (136-145) 04/29/17 04:15 Potassium 4.3 mmol/L (3.5-5.1) 04/29/17 04:15 Chloride 104 mmol/L (98-107) 04/29/17 04:15 Carbon Dioxide 29.6 mmol/L (21-32) 04/29/17 04:15 BUN 22 mg/dL (7-18) H 04/29/17 04:15 Creatinine 0.86 mg/dL (0.70-1.30) 04/29/17 04:15 Est GFR (MDRD) Af Amer > 60 (>60) 04/29/17 04:15 Est GFR (MDRD) Non-Af > 60 (>60) 04/29/17 04:15 Glucose 245 mg/dL (65-99) H 04/29/17 04:15 Calcium 8.8 mg/dL (8.5-10.1) 04/29/17 04:15 Corrected Calcium 9.8 mg/dL (8.5-10.1) 04/29/17 04:15 Total Bilirubin 0.60 mg/dL (0.2-1.0) 04/29/17 04:15 AST 14 Units/L (15-37) L 04/29/17 04:15 ALT 16 Units/L (12-78) 04/29/17 04:15 Alkaline Phosphatase 74 Units/L (46-116) 04/29/17 04:15 Total Protein 6.9 g/dL (6.4-8.2) 04/29/17 04:15 Albumin 2.7 g/dL (3.4-5.0) L 04/29/17 04:15 Globulin 4.2 g/dL (2.5-4.5) 04/29/17 04:15 Albumin/Globulin Ratio 0.6 Ratio (1.1-2.1) L 04/29/17 04:15 Specimen Type Catherized urine 04/28/17 01:08 Urine Color Yellow (YELLOW) 04/28/17 01:08 Urine Appearance Clear (CLEAR) 04/28/17 01:08 Urine pH 5.0 (5.0 - 8.0) 04/28/17 01:08 Ur Specific [place] 1.025 (1.000-1.030) 04/28/17 01:08 Urine Protein 2+ (NEGATIVE) 04/28/17 01:08 Urine Glucose (UA) 3+ (NEGATIVE) 04/28/17 01:08 Urine Ketones 3+ (NEGATIVE) 04/28/17 01:08 Urine Occult Blood 2+ (NEGATIVE) 04/28/17 01:08 Urine Nitrite Negative (NEGATIVE) 04/28/17 01:08 Urine Bilirubin Negative (NEGATIVE) 04/28/17 01:08 Urine Urobilinogen Normal (NORMAL) 04/28/17 01:08 Ur Leukocyte Esterase Negative (NEGATIVE) 04/28/17 01:08 Urine RBC 0-3 /HPF (NEGATIVE) 04/28/17 01:08 Urine WBC 0-2 /HPF (NEGATIVE) 04/28/17 01:08 Ur Squamous Epith Cells Rare /HPF (NEGATIVE) 04/28/17 01:08 Amorphous Sediment 1+ /HPF (NEGATIVE) 04/26/17 14:16 Urine Bacteria Trace /HPF (NEGATIVE) 04/28/17 01:08 Urine Mucus Many /HPF (NEGATIVE) 04/28/17 01:08 Ur Culture Indicated? No/not indicated 04/28/17 01:08 - Plan (1) Pulmonary fibrosis Status: Acute Plan: SUPPLEMENTAL OXYGEN, DUONEB AND PULMICORT INHALERS, MONITOR ABG AND LABS, CONTINUE TO MONITOR PATIENT. (2) [id number] respiratory failure Status: Acute Qualifiers: Respiratory failure complication: hypoxia Qualified Code(s): J96.21 - Acute and chronic respiratory failure with hypoxia Plan: SUPPLEMENTAL OXYGEN, DUONEB AND PULMICORT INHALERS, MONITOR ABG AND LABS, CONTINUE TO MONITOR PATIENT. (3) Diabetes mellitus Status: Acute Qualifiers: Diabetes mellitus type: type 2 Diabetes mellitus complication status: with unspecified complications Diabetes mellitus complication detail: D Diabetic retinopathy severity: D Proliferative retinopathy type: P Diabetes mellitus macular edema: D Diabetes mellitus [facility] insulin use: with chcf use Laterality: L Chronic kidney disease stage: C Qualified Code(s): E11.8 - Type 2 diabetes mellitus with unspecified complications; Z79.4 - nursing home ( current) use of insulin Plan: CONTINUE JANUVIA, CONTINUE GLUCOPHAGE, CONTINUE TO MONITOR (4) Hyperlipidemia Status: Acute Qualifiers: Hyperlipidemia type: mixed hyperlipidemia Qualified Code(s): E78.2 - Mixed hyperlipidemia Plan: CONTINUE CRESTOR, CONTINUE TO MONITOR
[2017-04-29] MEDS ORDERED: PHARMACY CONSULT - DOSE _____ XX SCH (15:00)
[2017-04-29] MEDS: LEVAQUIN PREMIX IV 500 MG 500 MG/100 ML BAG IV SCH (15:48)
[2017-04-29] MEDS: SNACK - Diabetic Appropriate PO SCH (20:41)
[2017-04-29] MEDS: COLACE CAP 100 MG PO SCH (20:42)
[2017-04-29] MEDS: CRESTOR TAB 10 MG PO SCH (20:42)
[2017-04-29] MEDS ORDERED: ROBITUSSIN DM ONE (23:24)
[2017-04-29] MEDS: ROBITUSSIN DM PO PRN (23:27)
[2017-04-30] MEDS: LANTISEPTIC TOP SCH ×3 (05:23→21:00)
[2017-04-30 05:29] LABS: BASOPHILS # (AUTO) 0.1 X10^3/uL (0.0-0.1); BASOPHILS % (AUTO) 0.5 % (0.2-1.0); EOSINOPHILS # (AUTO) 0.5 x10^3/uL (0.0-0.2); EOSINOPHILS % (AUTO) 4.2 % (0.9-2.9); HEMATOCRIT 37.5 % (42.0-54.0); HEMOGLOBIN 12.9 g/dL (13.5-18.0); LYMPHOCYTES # (AUTO) 1.1 X10^3/uL (1.3-2.9); LYMPHOCYTES % (AUTO) 10.2 % (21.0-51.0); MEAN CORPUSCULAR HEMOGLOBIN 31.6 pg (27.0-34.0); MEAN CORPUSCULAR HGB CONC 34.4 g/dL (33.0-35.0); MEAN PLATELET VOLUME 8.2 fL (7.4-11.0); MONOCYTES # (AUTO) 1.1 x10^3/uL (0.3-0.8); MONOCYTES % (AUTO) 10.3 % (0.0-13.0); NEUTROPHILS # (AUTO) 8.2 x10^3/uL (2.2-4.8); NEUTROPHILS % (AUTO) 74.8 % (42.0-75.0); PLATELET COUNT 210 X10^3/uL (150.0-450.0); RED BLOOD COUNT 4.07 X10^6/uL (4.7-6.0); RED CELL DISTRIBUTION WIDTH 13.7 % (11.6-16.5)
[2017-04-30] MEDS: HumuLIN R SUBCUT PRN ×2 (05:29→20:30)
[2017-04-30 05:44] LABS: ALANINE AMINOTRANSFERASE 22 Units/L (12-78); ALBUMIN 2.7 g/dL (3.4-5.0); ALKALINE PHOSPHATASE 80 Units/L (46-116); ASPARTATE AMINO TRANSFERASE 17 Units/L (15-37); BLOOD UREA NITROGEN 20 mg/dL (7-18); CARBON DIOXIDE 31.3 mmol/L (21-32); CHLORIDE 103 mmol/L (98-107); COR NA(FOR HYPERGLY) 140 mmol/L (136-145); GLUCOSE 188 mg/dL (65-99); SODIUM 138 mmol/L (136-145); TOTAL PROTEIN 6.6 g/dL (6.4-8.2); eGFR BLACK RACES > 60 (>60); eGFR NON BLACK RACES > 60 (>60)
--- NOTE | 2017-04-30 06:48 | RAD ---
HISTORY: Shortness of breath Study: AP portable chess Comparison: April 29, 2017 Findings: The heart remains enlarged. Mild pulmonary venous congestion is present. Confluent peripheral infilt rates are identified in the right lung base and left lung base. The lungs are better aerated than on the prior examination peer E These findings are superimposed on diffuse interstitial lung disease. The upper lung lizama remain clear. No pleural effusions are identified. The bony thorax is unremark able. IMPRESSION: The lungs are bilaterally slightly better aerated than on the prior examination. No change in the basilar infiltrates being followed Reported By:
[2017-04-30] MEDS ORDERED: GLUCOPHAGE ONE ×2 (08:03→18:17)
[2017-04-30] MEDS: GLUCOPHAGE PO SCH ×2 (08:11→18:21)
[2017-04-30] MEDS: PIRFENIDONE PO SCH ×4 (08:12→17:57)
[2017-04-30] MEDS: JANUVIA PO SCH (08:36)
[2017-04-30] MEDS: LEVAQUIN PREMIX IV 500 MG 500 MG/100 ML BAG IV SCH (08:36)
[2017-04-30] MEDS: MILK OF MAGNESIA PO SCH (08:37)
[2017-04-30] MEDS: ATIVAN TAB 1 MG PO PRN ×3 (08:39→23:28)
[2017-04-30] MEDS: FLONASE NASAL SPRAY ENOSTRIL SCH (08:39)
[2017-04-30] MEDS: PULMICORT NEB TX 0.5 MG NEB SCH ×2 (09:34→21:17)
[2017-04-30] MEDS: XOPENEX 1.25 MG/3 ML NEBULE NEB SCH ×4 (09:34→21:17)
[2017-04-30] MEDS: MAXIPIME 1 GM IV PREMIX 1 GM/50 ML BAG IV SCH ×2 (10:40→20:02)
--- NOTE | 2017-04-30 11:04 | PCM.PROG ---
Progress Note - Progress Note for Day of Date: 04/30/17 - Subjective Subjective: WAS ALERT AND ORIENTED, SITTING UP IN BED ON MORNING ROUNDS. HE IS NOTED WEARING NON-REBREATHEr. STAFF REPORTS THAT PATIENT REFUSES TO WEAR BIPAP. PATIENT CONTINUES WITH SHORTNESS OF BREATH. LUNGS CONTINUE WITH WHEEZING BILATERALLY ON AUSCULTATION. VITALS THIS AM ARE 99.6-95-46-93%-111/80. CBC WNL EXCEPT WBC 11.0, RBC 4.07, HGB 12.9, HCT 37.5. CMP WNL EXCEPT BUN 20, GLUCOSE 188, CALCIUM 8.0, ALBUMIN 2.7. CHEST XRAY REPORTS TAHT THE LUNGS ARE BILATERALLY SLIGHTLY BETTER AERATED THAN ON THE PRIOR EXAMINATION, NO CHANGE IN THE BASILAR INFILTRATES BEING FOLLOWED. WE DISCUSSED WITH PATIENT HIS DISEASE PROCESS. PATIENT UNDERSTANDS THAT HE IS IN END STAGE RESPIRATORY FAILURE. WE DISCUSSED WITH HIM HIS END OF LIFE WISHES. PATIENT REPORTS THAT HE IS NOT COMFORTABLE GOING HOME FROM THE HOSPITAL. HE REPORTS THAT HE HAS NOBODY AT HOME THAT WILL HELP TAKE CARE OF HIM. WE DISCUSSED HOSPICE WITH PATIENT OR [facility]. PATIENT IS IN AGREEMENT TO WHAT WE SUGGEST. CASE MANAGEMENT WILL CHECK INTO OUR OPTIONS AND WE WILL DISCUSS WITH PATIENT AND FAMILY IN AM. WE WILL CONTINUE WITH CURRENT PLAN OF CARE, RECHECK LABS, AND FOLLOW UP WITH PATIENT IN AM. - Past Medical Family Social History Past Med/Fam/Surg Hx: No changes since H&P Allergies: Allergies No Known Drug Allergies Allergy (Verified 04/03/17 13:40) - Review of Systems ROS: No change since H&P - Vital Signs and I&O's Vital Signs: Temperature 98.7 F Pulse Rate [Right Brachial] 91 Pulse Rate 103 Respiratory Rate 28 Blood Pressure [Right Arm] 116/86 Blood Pressure 159/83 O2 Sat by Pulse Oximetry 94 Intake and Output: Intake & Output 04/27/17 04/28/17 04/29/17 04/30/17 11:59 11:59 11:59 11:59 Intake Total 510 1312 1390 1345 Output Total 1100 2975 925 1400 Balance -590 -6926 465 -55 - Physical Exam Oriented: Normal. negative: Time, Person, Place, Not Oriented, Unable to test, Other Eyes: Normal. negative: Blurred Vision, Diplopia, Discharge, Pain, Redness, Photophobia, Other Ear: Normal. negative: Right, Left, Swelling, Ecchymosis, Hemotypanum, Abrasion , Laceration Nose: Normal. negative: Injected, Discharge, Blood, Other Throat: Normal. negative: Tonsillar Hypertrophy, Red, Exudate, Dry, Other Respiratory: Right, Left, Wheezes Cardiovascular: Normal. negative: Tachycardia, Bradycardia, Irregular, S3, S4, Systolic, Diastolic, Murmur, Edema, Other : Normal. negative: Dysuria, Hematuria, Frequency, Discharge, Testicular Pain , Bleeding, , Other Auscultation: Bowel Sounds: Normal. negative: Bruit, Absent, Increased, Decreased, High Pitched, Other Tenderness: Normal. negative: Diffuse, RUQ, RLQ, LUQ, LLQ, Epigastric, Periumbilical, Suprapubic, Mild, Moderate, Severe, Rebound, Guarding, Rigidity, Other Skin: Normal. negative: Decreased Turgur, Rash, Papular, Macular, Maculopapular , Vesicular, Pustular, Petechial, Red, Tender, Hot, Diaphoresis, Wound, Bruising , Ecchymosis, Other Musculoskeletal: Normal. negative: Right, Left, Shoulder, Clavicle, Arm, Elbow , Forearm, Wrist, Hand, Hip, Thigh, Knee, Leg, Ankle, Foot, Back:Thoracic, Back: Lumbar, Back:Midline, Back:Paraspinous, Pelvis, Swelling, Tender, Deformity, Pulse Deficit, Motor Deficit, Sensory Deficit, Instability, Crepitance Psychiatric: Normal. negative: Anxiety, Depression, Agitation, Other Mood Description: Calm. negative: Angry, Apathetic, Depressed, Fearful, Flat, Happy, Hostile, Sad, Suspicious, Withdrawn, Anxious, Appropriate, Labile Affect: Normal. negative: Angry, Anxious, Depressed, Flat, Hysterical, Quiet, Violent Speech Pattern: Clear, Appropriate - Laboratory and Diagnostics Result Diagrams: 04/30/17 05:00 04/30/17 05:00 Labs: 04/27/17 23:24 Sputum - Expectorated Sputum Sputum Culture - Final 04/27/17 23:24 Sputum - Expectorated Sputum - Final 04/26/17 14:16 Urine,Clean Catch Urine Culture - Final 04/26/17 16:25 Blood Blood Culture - Preliminary 04/26/17 16:15 Blood Blood Culture - Preliminary 04/26/17 17:17 Sputum - Expectorated Sputum Sputum Culture - Final 04/26/17 17:17 Sputum - Expectorated Sputum - Final Laboratory WBC 11.0 X10^3/uL (3.6-10.0) H D 04/30/17 05:00 RBC 4.07 X10^6/uL (4.7-6.0) L 04/30/17 05:00 Hgb 12.9 g/dL (13.5-18.0) L 04/30/17 05:00 Hct 37.5 % (42.0-54.0) L 04/30/17 05:00 MCV 92.0 fL (80.0-100.0) 04/30/17 05:00 MCH 31.6 pg (27.0-34.0) 04/30/17 05:00 MCHC 34.4 g/dL (33.0-35.0) 04/30/17 05:00 RDW 13.7 % (11.6-16.5) 04/30/17 05:00 Plt Count 210 X10^3/uL (150.0-450.0) 04/30/17 05:00 Plt Count Comment Adequate (ADEQUATE) 04/29/17 04:15 MPV 8.2 fL (7.4-11.0) 04/30/17 05:00 Neut % 74.8 % (42.0-75.0) 04/30/17 05:00 Lymph % 10.2 % (21.0-51.0) L 04/30/17 05:00 [place] % 10.3 % (0.0-13.0) 04/30/17 05:00 Eos % 4.2 % (0.9-2.9) H 04/30/17 05:00 Baso % 0.5 % (0.2-1.0) 04/30/17 05:00 Neut # 8.2 x10^3/uL (2.2-4.8) H 04/30/17 05:00 Lymph # 1.1 X10^3/uL (1.3-2.9) L 04/30/17 05:00 [place] # 1.1 x10^3/uL (0.3-0.8) H 04/30/17 05:00 Eos # 0.5 x10^3/uL (0.0-0.2) H 04/30/17 05:00 Baso # 0.1 X10^3/uL (0.0-0.1) 04/30/17 05:00 Absolute Nucleated RBC 0.0 /100WBC 04/30/17 05:00 Total Counted 100 04/28/17 05:15 Neutrophils % (Manual) 88 % (39-76) H 04/28/17 05:15 Band Neutrophils % 3 % (0-10) 04/28/17 05:15 Lymphocytes % (Manual) 6 % (13-43) L 04/28/17 05:15 Monocytes % (Manual) 2 % (4-9) L 04/28/17 05:15 Eosinophils % (Manual) 1 % (0-6) 04/28/17 05:15 Plt Morphology Comment Normal (NORMAL) 04/29/17 04:15 RBC Morphology Normal (NORMAL) 04/29/17 04:15 Sample Site R rad 04/28/17 00:39 ABG pH 7.430 (7.35-7.45) 04/28/17 00:39 ABG pCO2 38.0 mmHg (35.0-45.0) 04/28/17 00:39 ABG pO2 79.0 mmHg (80.0-100.0) L 04/28/17 00:39 ABG HCO3 25.2 mmol/L (22-26) 04/28/17 00:39 ABG O2 Saturation 96.0 % (90-100) 04/28/17 00:39 ABG Base Excess 1.0 mmol/L (-2.0-2.0) 04/28/17 00:39 Brad Test Pos 04/28/17 00:39 A-a Gradient 301.0 mmHg 04/28/17 00:39 FiO2 60.000 04/28/17 00:39 Blood Gas Comments Cristi well, afh 04/28/17 00:39 Sodium 138 mmol/L (136-145) 04/30/17 05:00 Corrected Sodium 140 mmol/L (136-145) 04/30/17 05:00 Potassium 4.1 mmol/L (3.5-5.1) 04/30/17 05:00 Chloride 103 mmol/L (98-107) 04/30/17 05:00 Carbon Dioxide 31.3 mmol/L (21-32) 04/30/17 05:00 BUN 20 mg/dL (7-18) H 04/30/17 05:00 Creatinine 0.80 mg/dL (0.70-1.30) 04/30/17 05:00 Est GFR (MDRD) Af Amer > 60 (>60) 04/30/17 05:00 Est GFR (MDRD) Non-Af > 60 (>60) 04/30/17 05:00 Glucose 188 mg/dL (65-99) H 04/30/17 05:00 Calcium 8.0 mg/dL (8.5-10.1) L 04/30/17 05:00 Corrected Calcium 9.0 mg/dL (8.5-10.1) 04/30/17 05:00 Total Bilirubin 0.90 mg/dL (0.2-1.0) 04/30/17 05:00 AST 17 Units/L (15-37) 04/30/17 05:00 ALT 22 Units/L (12-78) 04/30/17 05:00 Alkaline Phosphatase 80 Units/L (46-116) 04/30/17 05:00 Total Protein 6.6 g/dL (6.4-8.2) 04/30/17 05:00 Albumin 2.7 g/dL (3.4-5.0) L 04/30/17 05:00 Globulin 3.9 g/dL (2.5-4.5) 04/30/17 05:00 Albumin/Globulin Ratio 0.7 Ratio (1.1-2.1) L 04/30/17 05:00 Specimen Type Catherized urine 04/28/17 01:08 Urine Color Yellow (YELLOW) 04/28/17 01:08 Urine Appearance Clear (CLEAR) 04/28/17 01:08 Urine pH 5.0 (5.0 - 8.0) 04/28/17 01:08 Ur Specific [place] 1.025 (1.000-1.030) 04/28/17 01:08 Urine Protein 2+ (NEGATIVE) 04/28/17 01:08 Urine Glucose (UA) 3+ (NEGATIVE) 04/28/17 01:08 Urine Ketones 3+ (NEGATIVE) 04/28/17 01:08 Urine Occult Blood 2+ (NEGATIVE) 04/28/17 01:08 Urine Nitrite Negative (NEGATIVE) 04/28/17 01:08 Urine Bilirubin Negative (NEGATIVE) 04/28/17 01:08 Urine Urobilinogen Normal (NORMAL) 04/28/17 01:08 Ur Leukocyte Esterase Negative (NEGATIVE) 04/28/17 01:08 Urine RBC 0-3 /HPF (NEGATIVE) 04/28/17 01:08 Urine WBC 0-2 /HPF (NEGATIVE) 04/28/17 01:08 Ur Squamous Epith Cells Rare /HPF (NEGATIVE) 04/28/17 01:08 Amorphous Sediment 1+ /HPF (NEGATIVE) 04/26/17 14:16 Urine Bacteria Trace /HPF (NEGATIVE) 04/28/17 01:08 Urine Mucus Many /HPF (NEGATIVE) 04/28/17 01:08 Ur Culture Indicated? No/not indicated 04/28/17 01:08 - Plan (1) Pulmonary fibrosis Status: Acute Plan: SUPPLEMENTAL OXYGEN, DUONEB AND PULMICORT INHALERS, MONITOR ABG AND LABS, CONTINUE TO MONITOR PATIENT. (2) [id number] respiratory failure Status: Acute Qualifiers: Respiratory failure complication: hypoxia Qualified Code(s): J96.21 - Acute and chronic respiratory failure with hypoxia Plan: SUPPLEMENTAL OXYGEN, DUONEB AND PULMICORT INHALERS, MONITOR ABG AND LABS, CONTINUE TO MONITOR PATIENT. (3) Diabetes mellitus Status: Acute Qualifiers: Diabetes mellitus type: type 2 Diabetes mellitus complication status: with unspecified complications Diabetes mellitus complication detail: D Diabetic retinopathy severity: D Proliferative retinopathy type: P Diabetes mellitus macular edema: D Diabetes mellitus [facility] insulin use: with [facility] use Laterality: L Chronic kidney disease stage: C Qualified Code(s): E11.8 - Type 2 diabetes mellitus with unspecified complications; Z79.4 - correction ( current) use of insulin Plan: CONTINUE JANUVIA, CONTINUE GLUCOPHAGE, CONTINUE TO MONITOR (4) Hyperlipidemia Status: Acute Qualifiers: Hyperlipidemia type: mixed hyperlipidemia Qualified Code(s): E78.2 - Mixed hyperlipidemia Plan: CONTINUE CRESTOR, CONTINUE TO MONITOR
[2017-04-30] MEDS: ROBITUSSIN DM PO PRN ×2 (12:40→19:51)
[2017-04-30] MEDS: SNACK - Diabetic Appropriate PO SCH (19:50)
[2017-04-30] MEDS: CRESTOR TAB 10 MG PO SCH (20:02)
[2017-04-30] MEDS: COLACE CAP 100 MG PO SCH (20:02)
[2017-05-01 05:12] LABS: BASOPHILS % (AUTO) 0.3 % (0.2-1.0); EOSINOPHILS # (AUTO) 0.5 x10^3/uL (0.0-0.2); EOSINOPHILS % (AUTO) 4.2 % (0.9-2.9); HEMATOCRIT 38.1 % (42.0-54.0); LYMPHOCYTES # (AUTO) 1.1 X10^3/uL (1.3-2.9); LYMPHOCYTES % (AUTO) 9.2 % (21.0-51.0); MEAN CORPUSCULAR HEMOGLOBIN 31.4 pg (27.0-34.0); MEAN CORPUSCULAR HGB CONC 34.1 g/dL (33.0-35.0); MONOCYTES % (AUTO) 8.7 % (0.0-13.0); NEUTROPHILS # (AUTO) 9.1 x10^3/uL (2.2-4.8); NEUTROPHILS % (AUTO) 77.6 % (42.0-75.0); PLATELET COUNT 212 X10^3/uL (150.0-450.0); RED BLOOD COUNT 4.14 X10^6/uL (4.7-6.0); RED CELL DISTRIBUTION WIDTH 13.6 % (11.6-16.5); WHITE BLOOD COUNT 11.7 X10^3/uL (3.6-10.0)
[2017-05-01] MEDS: LANTISEPTIC TOP SCH ×3 (05:27→22:42)
[2017-05-01 05:31] LABS: ALANINE AMINOTRANSFERASE 18 Units/L (12-78); ALBUMIN 2.6 g/dL (3.4-5.0); ALKALINE PHOSPHATASE 83 Units/L (46-116); ASPARTATE AMINO TRANSFERASE 17 Units/L (15-37); BLOOD UREA NITROGEN 12 mg/dL (7-18); CALCIUM 8.3 mg/dL (8.5-10.1); CARBON DIOXIDE 29.7 mmol/L (21-32); CHLORIDE 100 mmol/L (98-107); COR CA(FOR HYPOALB) 9.4 mg/dL (8.5-10.1); COR NA(FOR HYPERGLY) 137 mmol/L (136-145); CREATININE 0.71 mg/dL (0.70-1.30); GLUCOSE 173 mg/dL (65-99); SODIUM 135 mmol/L (136-145); TOTAL PROTEIN 6.7 g/dL (6.4-8.2); eGFR BLACK RACES > 60 (>60); eGFR NON BLACK RACES > 60 (>60)
[2017-05-01] MEDS: HumuLIN R SUBCUT PRN (05:36)
--- NOTE | 2017-05-01 06:18 | RAD ---
HISTORY: Shortness of breath Study: AP portable chest Comparison: April 30, 2017 Findings: The heart remains enlarged. Mild pulmonary venous congestion is present. Bibasilar confluent alveola r infiltrates are unchanged. These findings are superimposed on diffuse chronic interstitial lung ch anges. The upper lung lizama remain clear. No definite pleural effusions are identified. The bony th orax is unremarkable. IMPRESSION: No significant change from the prior examination Reported By:
[2017-05-01] MEDS ORDERED: GLUCOPHAGE ONE ×2 (08:13→17:46)
[2017-05-01] MEDS: JANUVIA PO SCH (08:23)
[2017-05-01] MEDS: LEVAQUIN PREMIX IV 500 MG 500 MG/100 ML BAG IV SCH (08:23)
[2017-05-01] MEDS: MILK OF MAGNESIA PO SCH ×2 (08:23→17:49)
[2017-05-01] MEDS: GLUCOPHAGE PO SCH ×2 (08:23→17:48)
[2017-05-01] MEDS: MAXIPIME 1 GM IV PREMIX 1 GM/50 ML BAG IV SCH ×2 (08:24→20:33)
[2017-05-01] MEDS: PIRFENIDONE PO SCH ×3 (08:34→17:48)
[2017-05-01] MEDS: XOPENEX 1.25 MG/3 ML NEBULE NEB SCH ×2 (08:45→12:20)
[2017-05-01] MEDS: PULMICORT NEB TX 0.5 MG NEB SCH ×2 (08:45→20:24)
[2017-05-01] MEDS: FLONASE NASAL SPRAY ENOSTRIL SCH (09:24)
[2017-05-01] MEDS: ATIVAN TAB 1 MG PO PRN (19:01)
--- NOTE | 2017-05-01 20:12 | PCM.PROG ---
Progress Note - Progress Note for Day of Date: 05/01/17 - Subjective Subjective: WAS ALERT AND ORIENTED, SITTING UP IN BED ON MORNING ROUNDS. HE IS WEARING A NON-REBREATHER. HE CONTINUES WITH SHORTNESS OF BREATH AND WHEEZING BILATERALLY ON AUSCULTATION. VITALS THIS AM ARE 100.087-41-94%-119/ 77. CBC WNL EXCEPT WBC 11.7, RBC 4.14, HBG 13, HCT 38.1. CMP WNL EXCEPT SODIUM 135, GLUCOSE 173, CALCIUM 8.3, ALBUMIN 2.6. CHEST XRAY REPORTS NO CHANGE FROM YESTERDAY. CASE MANAGEMENT IS CONTINUING TO CHECK INTO OUR OPTIONS AND WE WILL DISCUSS WITH PATIENT AND FAMILY WHEN WE HAVE A DEFINITE PLAN. OTHERWISE, WE WILL CONTINUE WITH CURRENT PLAN OF CARE, RECHECK LABS, AND FOLLOW UP WITH PATIENT IN AM. - Past Medical Family Social History Past Med/Fam/Surg Hx: No changes since H&P Allergies: Allergies No Known Drug Allergies Allergy (Verified 04/03/17 13:40) - Review of Systems ROS: No change since H&P - Vital Signs and I&O's Vital Signs: Temperature 98.4 F Pulse Rate [Right Brachial] 90 Pulse Rate 96 Respiratory Rate 91 Blood Pressure [Right Arm] 108/67 Blood Pressure 159/83 O2 Sat by Pulse Oximetry 92 Intake and Output: Intake & Output 04/29/17 04/30/17 05/01/17 05/02/17 11:59 11:59 11:59 11:59 Intake Total 1390 1345 923 250 Output Total 925 1400 425 600 Balance 465 -55 498 -350 - Physical Exam Oriented: Normal. negative: Time, Person, Place, Not Oriented, Unable to test, Other Eyes: Normal. negative: Blurred Vision, Diplopia, Discharge, Pain, Redness, Photophobia, Other Ear: Normal. negative: Right, Left, Swelling, Ecchymosis, Hemotypanum, Abrasion , Laceration Nose: Normal. negative: Injected, Discharge, Blood, Other Throat: Normal. negative: Tonsillar Hypertrophy, Red, Exudate, Dry, Other Respiratory: Right, Left, Wheezes Cardiovascular: Normal. negative: Tachycardia, Bradycardia, Irregular, S3, S4, Systolic, Diastolic, Murmur, Edema, Other : Normal. negative: Dysuria, Hematuria, Frequency, Discharge, Testicular Pain , Bleeding, , Other Auscultation: Bowel Sounds: Normal. negative: Bruit, Absent, Increased, Decreased, High Pitched, Other Palpation: Normal Tenderness: Normal. negative: Diffuse, RUQ, RLQ, LUQ, LLQ, Epigastric, Periumbilical, Suprapubic, Mild, Moderate, Severe, Rebound, Guarding, Rigidity, Other Skin: Normal. negative: Decreased Turgur, Rash, Papular, Macular, Maculopapular , Vesicular, Pustular, Petechial, Red, Tender, Hot, Diaphoresis, Wound, Bruising , Ecchymosis, Other Musculoskeletal: Normal. negative: Right, Left, Shoulder, Clavicle, Arm, Elbow , Forearm, Wrist, Hand, Hip, Thigh, Knee, Leg, Ankle, Foot, Back:Thoracic, Back: Lumbar, Back:Midline, Back:Paraspinous, Pelvis, Swelling, Tender, Deformity, Pulse Deficit, Motor Deficit, Sensory Deficit, Instability, Crepitance Psychiatric: Normal. negative: Anxiety, Depression, Agitation, Other Mood Description: Calm. negative: Angry, Apathetic, Depressed, Fearful, Flat, Happy, Hostile, Sad, Suspicious, Withdrawn, Anxious, Appropriate, Labile Affect: Normal. negative: Angry, Anxious, Depressed, Flat, Hysterical, Quiet, Violent Speech Pattern: Clear, Appropriate - Laboratory and Diagnostics Result Diagrams: 05/01/17 03:50 05/01/17 03:50 Labs: 04/27/17 23:24 Sputum - Expectorated Sputum Sputum Culture - Final 04/27/17 23:24 Sputum - Expectorated Sputum - Final 04/26/17 14:16 Urine,Clean Catch Urine Culture - Final 04/26/17 16:25 Blood Blood Culture - Preliminary 04/26/17 16:15 Blood Blood Culture - Preliminary 04/26/17 17:17 Sputum - Expectorated Sputum Sputum Culture - Final 04/26/17 17:17 Sputum - Expectorated Sputum - Final Laboratory WBC 11.7 X10^3/uL (3.6-10.0) H 05/01/17 03:50 RBC 4.14 X10^6/uL (4.7-6.0) L 05/01/17 03:50 Hgb 13.0 g/dL (13.5-18.0) L 05/01/17 03:50 Hct 38.1 % (42.0-54.0) L 05/01/17 03:50 MCV 92.0 fL (80.0-100.0) 05/01/17 03:50 MCH 31.4 pg (27.0-34.0) 05/01/17 03:50 MCHC 34.1 g/dL (33.0-35.0) 05/01/17 03:50 RDW 13.6 % (11.6-16.5) 05/01/17 03:50 Plt Count 212 X10^3/uL (150.0-450.0) 05/01/17 03:50 Plt Count Comment Adequate (ADEQUATE) 04/29/17 04:15 MPV 8.0 fL (7.4-11.0) 05/01/17 03:50 Neut % 77.6 % (42.0-75.0) H 05/01/17 03:50 Lymph % 9.2 % (21.0-51.0) L 05/01/17 03:50 [place] % 8.7 % (0.0-13.0) 05/01/17 03:50 Eos % 4.2 % (0.9-2.9) H 05/01/17 03:50 Baso % 0.3 % (0.2-1.0) 05/01/17 03:50 Neut # 9.1 x10^3/uL (2.2-4.8) H 05/01/17 03:50 Lymph # 1.1 X10^3/uL (1.3-2.9) L 05/01/17 03:50 [place] # 1.0 x10^3/uL (0.3-0.8) H 05/01/17 03:50 Eos # 0.5 x10^3/uL (0.0-0.2) H 05/01/17 03:50 Baso # 0.0 X10^3/uL (0.0-0.1) 05/01/17 03:50 Absolute Nucleated RBC 0.0 /100WBC 05/01/17 03:50 Total Counted 100 04/28/17 05:15 Neutrophils % (Manual) 88 % (39-76) H 04/28/17 05:15 Band Neutrophils % 3 % (0-10) 04/28/17 05:15 Lymphocytes % (Manual) 6 % (13-43) L 04/28/17 05:15 Monocytes % (Manual) 2 % (4-9) L 04/28/17 05:15 Eosinophils % (Manual) 1 % (0-6) 04/28/17 05:15 Plt Morphology Comment Normal (NORMAL) 04/29/17 04:15 RBC Morphology Normal (NORMAL) 04/29/17 04:15 Sample Site R rad 04/28/17 00:39 ABG pH 7.430 (7.35-7.45) 04/28/17 00:39 ABG pCO2 38.0 mmHg (35.0-45.0) 04/28/17 00:39 ABG pO2 79.0 mmHg (80.0-100.0) L 04/28/17 00:39 ABG HCO3 25.2 mmol/L (22-26) 04/28/17 00:39 ABG O2 Saturation 96.0 % (90-100) 04/28/17 00:39 ABG Base Excess 1.0 mmol/L (-2.0-2.0) 04/28/17 00:39 Brad Test Pos 04/28/17 00:39 A-a Gradient 301.0 mmHg 04/28/17 00:39 FiO2 60.000 04/28/17 00:39 Blood Gas Comments Cristi well, afh 04/28/17 00:39 Sodium 135 mmol/L (136-145) L 05/01/17 03:50 Corrected Sodium 137 mmol/L (136-145) 05/01/17 03:50 Potassium 4.0 mmol/L (3.5-5.1) 05/01/17 03:50 Chloride 100 mmol/L (98-107) 05/01/17 03:50 Carbon Dioxide 29.7 mmol/L (21-32) 05/01/17 03:50 BUN 12 mg/dL (7-18) 05/01/17 03:50 Creatinine 0.71 mg/dL (0.70-1.30) 05/01/17 03:50 Est GFR (MDRD) Af Amer > 60 (>60) 05/01/17 03:50 Est GFR (MDRD) Non-Af > 60 (>60) 05/01/17 03:50 Glucose 173 mg/dL (65-99) H 05/01/17 03:50 Calcium 8.3 mg/dL (8.5-10.1) L 05/01/17 03:50 Corrected Calcium 9.4 mg/dL (8.5-10.1) 05/01/17 03:50 Total Bilirubin 1.20 mg/dL (0.2-1.0) H 05/01/17 03:50 AST 17 Units/L (15-37) 05/01/17 03:50 ALT 18 Units/L (12-78) 05/01/17 03:50 Alkaline Phosphatase 83 Units/L (46-116) 05/01/17 03:50 Total Protein 6.7 g/dL (6.4-8.2) 05/01/17 03:50 Albumin 2.6 g/dL (3.4-5.0) L 05/01/17 03:50 Globulin 4.1 g/dL (2.5-4.5) 05/01/17 03:50 Albumin/Globulin Ratio 0.6 Ratio (1.1-2.1) L 05/01/17 03:50 Specimen Type Catherized urine 04/28/17 01:08 Urine Color Yellow (YELLOW) 04/28/17 01:08 Urine Appearance Clear (CLEAR) 04/28/17 01:08 Urine pH 5.0 (5.0 - 8.0) 04/28/17 01:08 Ur Specific [place] 1.025 (1.000-1.030) 04/28/17 01:08 Urine Protein 2+ (NEGATIVE) 04/28/17 01:08 Urine Glucose (UA) 3+ (NEGATIVE) 04/28/17 01:08 Urine Ketones 3+ (NEGATIVE) 04/28/17 01:08 Urine Occult Blood 2+ (NEGATIVE) 04/28/17 01:08 Urine Nitrite Negative (NEGATIVE) 04/28/17 01:08 Urine Bilirubin Negative (NEGATIVE) 04/28/17 01:08 Urine Urobilinogen Normal (NORMAL) 04/28/17 01:08 Ur Leukocyte Esterase Negative (NEGATIVE) 04/28/17 01:08 Urine RBC 0-3 /HPF (NEGATIVE) 04/28/17 01:08 Urine WBC 0-2 /HPF (NEGATIVE) 04/28/17 01:08 Ur Squamous Epith Cells Rare /HPF (NEGATIVE) 04/28/17 01:08 Amorphous Sediment 1+ /HPF (NEGATIVE) 04/26/17 14:16 Urine Bacteria Trace /HPF (NEGATIVE) 04/28/17 01:08 Urine Mucus Many /HPF (NEGATIVE) 04/28/17 01:08 Ur Culture Indicated? No/not indicated 04/28/17 01:08 - Plan (1) Pulmonary fibrosis Status: Acute Plan: SUPPLEMENTAL OXYGEN, DUONEB AND PULMICORT INHALERS, MONITOR ABG AND LABS, CONTINUE TO MONITOR PATIENT. (2) [id number] respiratory failure Status: Acute Qualifiers: Respiratory failure complication: hypoxia Qualified Code(s): J96.21 - Acute and chronic respiratory failure with hypoxia Plan: SUPPLEMENTAL OXYGEN, DUONEB AND PULMICORT INHALERS, MONITOR ABG AND LABS, CONTINUE TO MONITOR PATIENT. (3) Diabetes mellitus Status: Acute Qualifiers: Diabetes mellitus type: type 2 Diabetes mellitus complication status: with unspecified complications Diabetes mellitus equipment operator intermodal yard insulin use: with assisted use Qualified Code(s): E11.8 - Type 2 diabetes mellitus with unspecified complications; Z79.4 - USP (current) use of insulin Plan: CONTINUE JANUVIA, CONTINUE GLUCOPHAGE, CONTINUE TO MONITOR (4) Hyperlipidemia Status: Acute Qualifiers: Hyperlipidemia type: mixed hyperlipidemia Qualified Code(s): E78.2 - Mixed hyperlipidemia Plan: CONTINUE CRESTOR, CONTINUE TO MONITOR
[2017-05-01] MEDS: CRESTOR TAB 10 MG PO SCH (20:33)
[2017-05-01] MEDS: COLACE CAP 100 MG PO SCH (20:34)
[2017-05-01] MEDS: SNACK - Diabetic Appropriate PO SCH (20:45)
[2017-05-02 05:55] LABS: ALANINE AMINOTRANSFERASE 21 Units/L (12-78); ALBUMIN 2.5 g/dL (3.4-5.0); ALKALINE PHOSPHATASE 79 Units/L (46-116); ASPARTATE AMINO TRANSFERASE 15 Units/L (15-37); BLOOD UREA NITROGEN 15 mg/dL (7-18); CALCIUM 8.4 mg/dL (8.5-10.1); CARBON DIOXIDE 29.5 mmol/L (21-32); CHLORIDE 100 mmol/L (98-107); COR CA(FOR HYPOALB) 9.6 mg/dL (8.5-10.1); COR NA(FOR HYPERGLY) 139 mmol/L (136-145); CREATININE 0.72 mg/dL (0.70-1.30); GLUCOSE 144 mg/dL (65-99); SODIUM 138 mmol/L (136-145); TOTAL PROTEIN 6.8 g/dL (6.4-8.2); eGFR BLACK RACES > 60 (>60); eGFR NON BLACK RACES > 60 (>60)
[2017-05-02] MEDS ORDERED: GLUCOPHAGE ONE ×2 (06:03→16:26)
[2017-05-02] MEDS: GLUCOPHAGE PO SCH ×2 (06:07→16:57)
[2017-05-02] MEDS: LANTISEPTIC TOP SCH ×3 (06:08→21:40)
[2017-05-02] MEDS: HumuLIN R SUBCUT PRN (06:15)
[2017-05-02 06:17] LABS: BASOPHILS # (AUTO) 0.1 X10^3/uL (0.0-0.1); BASOPHILS % (AUTO) 0.5 % (0.2-1.0); EOSINOPHILS # (AUTO) 0.8 x10^3/uL (0.0-0.2); EOSINOPHILS % (AUTO) 6.7 % (0.9-2.9); HEMOGLOBIN 13.2 g/dL (13.5-18.0); LYMPHOCYTES # (AUTO) 1.2 X10^3/uL (1.3-2.9); LYMPHOCYTES % (AUTO) 10.3 % (21.0-51.0); MEAN CORPUSCULAR VOLUME 91.1 fL (80.0-100.0); MONOCYTES % (AUTO) 8.9 % (0.0-13.0); NEUTROPHILS # (AUTO) 8.4 x10^3/uL (2.2-4.8); NEUTROPHILS % (AUTO) 73.6 % (42.0-75.0); PLATELET COUNT 248 X10^3/uL (150.0-450.0); RED BLOOD COUNT 4.28 X10^6/uL (4.7-6.0); WHITE BLOOD COUNT 11.4 X10^3/uL (3.6-10.0)
[2017-05-02] MEDS ORDERED: PIRFENIDONE PO SCH ×3 (07:00→12:00)
[2017-05-02] MEDS: PULMICORT NEB TX 0.5 MG NEB SCH ×2 (08:36→21:06)
[2017-05-02] MEDS: XOPENEX 1.25 MG/3 ML NEBULE NEB SCH ×4 (08:37→21:07)
[2017-05-02] MEDS: JANUVIA PO SCH (09:52)
[2017-05-02] MEDS: LEVAQUIN PREMIX IV 500 MG 500 MG/100 ML BAG IV SCH (09:52)
[2017-05-02] MEDS: MILK OF MAGNESIA PO SCH (09:52)
[2017-05-02] MEDS: FLONASE NASAL SPRAY ENOSTRIL SCH (09:52)
[2017-05-02] MEDS: MAXIPIME 1 GM IV PREMIX 1 GM/50 ML BAG IV SCH ×2 (09:52→21:00)
[2017-05-02] MEDS ORDERED: ATIVAN TAB 1 MG PO PRN (14:57)
[2017-05-02] MEDS ORDERED: TYLENOL SUPP 650 MG PR PRN (14:57)
[2017-05-02] MEDS ORDERED: PROVENTIL NEB TX 0.083% 2.5MG/ 3ML NEB PRN (14:57)
[2017-05-02] MEDS ORDERED: ROBITUSSIN DM PO PRN (14:57)
[2017-05-02] MEDS ORDERED: HumuLIN R SUBCUT PRN (14:57)
[2017-05-02] MEDS ORDERED: TYLENOL 325 MG TAB PO PRN (14:57)
[2017-05-02] MEDS ORDERED: NS IV NR (16:00)
[2017-05-02] MEDS ORDERED: AMINOPHYLLINE IV NR (16:00)
[2017-05-02] MEDS: PIRFENIDONE PO SCH (16:57)
--- NOTE | 2017-05-02 17:08 | PCM.PROG ---
Progress Note - Progress Note for Day of Date: 05/02/17 - Subjective Subjective: IS ALERT AND ORIENTED, SITTING UP IN BED ON MORNING ROUNDS. PATIENT'S FAMILY MEMBER IS AT BEDSIDE. PATIENT CONTINUES WITH SHORTNESS OF BREATH AND WHEEZING BILATERALLY ON AUSCULTATION. HE IS NOTED WEARING HEATED HIGH FLOW NASAL CANNULA AT THIS TIME. STAFF REPORTS THAT PATIENT IS REMOVING OXYGEN IN HIS SLEEP AND SATURATIONS ARE FALLING TO THE 50s, BUT COME BACK UP TO THE 90s WHEN OXYGEN IS REPLACED. VITALS THIS AM ARE 98.2-82-29-96%-102/69. CBC WNL EXCEPT WBC 11.4, RBC 4.28, HGB 13.2, HCT 39. CMP WNL EXCEPT GLUCOSE 144, CALCIUM 8.4. ALBUMIN 2.5. WE SENT A REFERRAL TO [facility]. THEY WILL ACCEPT PATIENT IF HE CAN MAINTAIN HIS OXYGEN SATURATIONS ON A CONCENTRATOR. WHEN A TRIAL ON THE CONCENTRATOR WAS DONE, PATIENT'S OXYGEN SATURATIONS DROPPED TO THE 40s. HE WAS PLACED BACK ON HIGH FLOW HEATED OXYGEN AND SATURATIONS CAME BACK UP TO THE 90S. WE CONSULTED WITH PHARMACY AND PATIENT IS A CANDIDATE FOR A THEOPHYLLINE DRIP. WE WILL START DRIP. WE PLAN TO TRANSFER PATIENT TO FLOOR AND CONTINUE WITH CURRENT PLAN OF CARE OVER THE WEEKEND. - Past Medical Family Social History Past Med/Fam/Surg Hx: No changes since H&P Allergies: Allergies No Known Drug Allergies Allergy (Verified 04/03/17 13:40) - Review of Systems ROS: No change since H&P - Vital Signs and I&O's Vital Signs: Temperature 98.3 F Pulse Rate [Right Brachial] 103 Pulse Rate 97 Respiratory Rate 32 Blood Pressure [Right Arm] 109/67 Blood Pressure 159/83 O2 Sat by Pulse Oximetry 95 Intake and Output: Intake & Output 04/30/17 05/01/17 05/02/17 05/03/17 11:59 11:59 11:59 11:59 Intake Total 1345 923 890 950 Output Total 8845 939 4894 450 Balance -55 498 -110 500 - Physical Exam Oriented: Normal. negative: Time, Person, Place, Not Oriented, Unable to test, Other Eyes: Normal. negative: Blurred Vision, Diplopia, Discharge, Pain, Redness, Photophobia, Other Ear: Normal. negative: Right, Left, Swelling, Ecchymosis, Hemotypanum, Abrasion , Laceration Nose: Normal. negative: Injected, Discharge, Blood, Other Throat: Normal. negative: Tonsillar Hypertrophy, Red, Exudate, Dry, Other Respiratory: Right, Left, Wheezes Cardiovascular: Normal. negative: Tachycardia, Bradycardia, Irregular, S3, S4, Systolic, Diastolic, Murmur, Edema, Other : Normal. negative: Dysuria, Hematuria, Frequency, Discharge, Testicular Pain , Bleeding, , Other Auscultation: Bowel Sounds: Normal. negative: Bruit, Absent, Increased, Decreased, High Pitched, Other Palpation: Normal Tenderness: Normal. negative: Diffuse, RUQ, RLQ, LUQ, LLQ, Epigastric, Periumbilical, Suprapubic, Mild, Moderate, Severe, Rebound, Guarding, Rigidity, Other Skin: Normal. negative: Decreased Turgur, Rash, Papular, Macular, Maculopapular , Vesicular, Pustular, Petechial, Red, Tender, Hot, Diaphoresis, Wound, Bruising , Ecchymosis, Other Musculoskeletal: Normal. negative: Right, Left, Shoulder, Clavicle, Arm, Elbow , Forearm, Wrist, Hand, Hip, Thigh, Knee, Leg, Ankle, Foot, Back:Thoracic, Back: Lumbar, Back:Midline, Back:Paraspinous, Pelvis, Swelling, Tender, Deformity, Pulse Deficit, Motor Deficit, Sensory Deficit, Instability, Crepitance Psychiatric: Normal. negative: Anxiety, Depression, Agitation, Other Mood Description: Calm. negative: Angry, Apathetic, Depressed, Fearful, Flat, Happy, Hostile, Sad, Suspicious, Withdrawn, Anxious, Appropriate, Labile Affect: Normal. negative: Angry, Anxious, Depressed, Flat, Hysterical, Quiet, Violent Speech Pattern: Clear, Appropriate - Laboratory and Diagnostics Result Diagrams: 05/02/17 05:15 05/02/17 05:15 Labs: 04/26/17 16:25 Blood Blood Culture - Final 04/26/17 16:15 Blood Blood Culture - Final 04/27/17 23:24 Sputum - Expectorated Sputum Sputum Culture - Final 04/27/17 23:24 Sputum - Expectorated Sputum - Final 04/26/17 14:16 Urine,Clean Catch Urine Culture - Final 04/26/17 17:17 Sputum - Expectorated Sputum Sputum Culture - Final 04/26/17 17:17 Sputum - Expectorated Sputum - Final Laboratory WBC 11.4 X10^3/uL (3.6-10.0) H 05/02/17 05:15 RBC 4.28 X10^6/uL (4.7-6.0) L 05/02/17 05:15 Hgb 13.2 g/dL (13.5-18.0) L 05/02/17 05:15 Hct 39.0 % (42.0-54.0) L 05/02/17 05:15 MCV 91.1 fL (80.0-100.0) 05/02/17 05:15 MCH 31.0 pg (27.0-34.0) 05/02/17 05:15 MCHC 34.0 g/dL (33.0-35.0) 05/02/17 05:15 RDW 13.0 % (11.6-16.5) 05/02/17 05:15 Plt Count 248 X10^3/uL (150.0-450.0) 05/02/17 05:15 Plt Count Comment Adequate (ADEQUATE) 04/29/17 04:15 MPV 8.0 fL (7.4-11.0) 05/02/17 05:15 Neut % 73.6 % (42.0-75.0) 05/02/17 05:15 Lymph % 10.3 % (21.0-51.0) L 05/02/17 05:15 [place] % 8.9 % (0.0-13.0) 05/02/17 05:15 Eos % 6.7 % (0.9-2.9) H 05/02/17 05:15 Baso % 0.5 % (0.2-1.0) 05/02/17 05:15 Neut # 8.4 x10^3/uL (2.2-4.8) H 05/02/17 05:15 Lymph # 1.2 X10^3/uL (1.3-2.9) L 05/02/17 05:15 [place] # 1.0 x10^3/uL (0.3-0.8) H 05/02/17 05:15 Eos # 0.8 x10^3/uL (0.0-0.2) H 05/02/17 05:15 Baso # 0.1 X10^3/uL (0.0-0.1) 05/02/17 05:15 Absolute Nucleated RBC 0.0 /100WBC 05/02/17 05:15 Total Counted 100 04/28/17 05:15 Neutrophils % (Manual) 88 % (39-76) H 04/28/17 05:15 Band Neutrophils % 3 % (0-10) 04/28/17 05:15 Lymphocytes % (Manual) 6 % (13-43) L 04/28/17 05:15 Monocytes % (Manual) 2 % (4-9) L 04/28/17 05:15 Eosinophils % (Manual) 1 % (0-6) 04/28/17 05:15 Plt Morphology Comment Normal (NORMAL) 04/29/17 04:15 RBC Morphology Normal (NORMAL) 04/29/17 04:15 Sample Site R rad 04/28/17 00:39 ABG pH 7.430 (7.35-7.45) 04/28/17 00:39 ABG pCO2 38.0 mmHg (35.0-45.0) 04/28/17 00:39 ABG pO2 79.0 mmHg (80.0-100.0) L 04/28/17 00:39 ABG HCO3 25.2 mmol/L (22-26) 04/28/17 00:39 ABG O2 Saturation 96.0 % (90-100) 04/28/17 00:39 ABG Base Excess 1.0 mmol/L (-2.0-2.0) 04/28/17 00:39 Brad Test Pos 04/28/17 00:39 A-a Gradient 301.0 mmHg 04/28/17 00:39 FiO2 60.000 04/28/17 00:39 Blood Gas Comments Cristi well, af 04/28/17 00:39 Sodium 138 mmol/L (136-145) 05/02/17 05:15 Corrected Sodium 139 mmol/L (136-145) 05/02/17 05:15 Potassium 4.1 mmol/L (3.5-5.1) 05/02/17 05:15 Chloride 100 mmol/L (98-107) 05/02/17 05:15 Carbon Dioxide 29.5 mmol/L (21-32) 05/02/17 05:15 BUN 15 mg/dL (7-18) 05/02/17 05:15 Creatinine 0.72 mg/dL (0.70-1.30) 05/02/17 05:15 Est GFR (MDRD) Af Amer > 60 (>60) 05/02/17 05:15 Est GFR (MDRD) Non-Af > 60 (>60) 05/02/17 05:15 Glucose 144 mg/dL (65-99) H 05/02/17 05:15 Calcium 8.4 mg/dL (8.5-10.1) L 05/02/17 05:15 Corrected Calcium 9.6 mg/dL (8.5-10.1) 05/02/17 05:15 Total Bilirubin 0.90 mg/dL (0.2-1.0) 05/02/17 05:15 AST 15 Units/L (15-37) 05/02/17 05:15 ALT 21 Units/L (12-78) 05/02/17 05:15 Alkaline Phosphatase 79 Units/L (46-116) 05/02/17 05:15 Total Protein 6.8 g/dL (6.4-8.2) 05/02/17 05:15 Albumin 2.5 g/dL (3.4-5.0) L 05/02/17 05:15 Globulin 4.3 g/dL (2.5-4.5) 05/02/17 05:15 Albumin/Globulin Ratio 0.6 Ratio (1.1-2.1) L 05/02/17 05:15 Specimen Type Catherized urine 04/28/17 01:08 Urine Color Yellow (YELLOW) 04/28/17 01:08 Urine Appearance Clear (CLEAR) 04/28/17 01:08 Urine pH 5.0 (5.0 - 8.0) 04/28/17 01:08 Ur Specific [place] 1.025 (1.000-1.030) 04/28/17 01:08 Urine Protein 2+ (NEGATIVE) 04/28/17 01:08 Urine Glucose (UA) 3+ (NEGATIVE) 04/28/17 01:08 Urine Ketones 3+ (NEGATIVE) 04/28/17 01:08 Urine Occult Blood 2+ (NEGATIVE) 04/28/17 01:08 Urine Nitrite Negative (NEGATIVE) 04/28/17 01:08 Urine Bilirubin Negative (NEGATIVE) 04/28/17 01:08 Urine Urobilinogen Normal (NORMAL) 04/28/17 01:08 Ur Leukocyte Esterase Negative (NEGATIVE) 04/28/17 01:08 Urine RBC 0-3 /HPF (NEGATIVE) 04/28/17 01:08 Urine WBC 0-2 /HPF (NEGATIVE) 04/28/17 01:08 Ur Squamous Epith Cells Rare /HPF (NEGATIVE) 04/28/17 01:08 Amorphous Sediment 1+ /HPF (NEGATIVE) 04/26/17 14:16 Urine Bacteria Trace /HPF (NEGATIVE) 04/28/17 01:08 Urine Mucus Many /HPF (NEGATIVE) 04/28/17 01:08 Ur Culture Indicated? No/not indicated 04/28/17 01:08 - Plan (1) Pulmonary fibrosis Status: Acute Plan: SUPPLEMENTAL OXYGEN, DUONEB AND PULMICORT INHALERS, MONITOR ABG AND LABS, CONTINUE TO MONITOR PATIENT. (2) [id number] respiratory failure Status: Acute Qualifiers: Respiratory failure complication: hypoxia Qualified Code(s): J96.21 - Acute and chronic respiratory failure with hypoxia Plan: THEOPHYLLINE DRIP, SUPPLEMENTAL OXYGEN, DUONEB AND PULMICORT INHALERS, MONITOR ABG AND LABS, CONTINUE TO MONITOR PATIENT. (3) Diabetes mellitus Status: Acute Qualifiers: Diabetes mellitus type: type 2 Diabetes mellitus complication status: with unspecified complications Diabetes mellitus skilled nursing insulin use: with manager intermediate use Qualified Code(s): E11.8 - Type 2 diabetes mellitus with unspecified complications; Z79.4 - rodent exterminator (current) use of insulin Plan: CONTINUE JANUVIA, CONTINUE GLUCOPHAGE, CONTINUE TO MONITOR (4) Hyperlipidemia Status: Acute Qualifiers: Hyperlipidemia type: mixed hyperlipidemia Qualified Code(s): E78.2 - Mixed hyperlipidemia Plan: CONTINUE CRESTOR, CONTINUE TO MONITOR
[2017-05-02] MEDS: AMINOPHYLLINE INJ 1,000 MG in DEXTROSE 5% 460 ML IV PRN (18:38)
[2017-05-02] MEDS ORDERED: SNACK - Diabetic Appropriate PO SCH (20:00)
[2017-05-02] MEDS: CRESTOR TAB 10 MG PO SCH (21:39)
[2017-05-02] MEDS: COLACE CAP 100 MG PO SCH (21:39)
[2017-05-02] MEDS: SNACK - Diabetic Appropriate PO SCH (21:40)
[2017-05-03] MEDS: ZOFRAN INJ 4 MG VIAL IVP PRN ×2 (04:04→17:24)
[2017-05-03 04:59] LABS: ALANINE AMINOTRANSFERASE 29 Units/L (12-78); ALBUMIN 2.7 g/dL (3.4-5.0); ALKALINE PHOSPHATASE 82 Units/L (46-116); ASPARTATE AMINO TRANSFERASE 19 Units/L (15-37); BLOOD UREA NITROGEN 14 mg/dL (7-18); CALCIUM 8.5 mg/dL (8.5-10.1); CHLORIDE 99 mmol/L (98-107); COR CA(FOR HYPOALB) 9.5 mg/dL (8.5-10.1); COR NA(FOR HYPERGLY) 138 mmol/L (136-145); CREATININE 0.78 mg/dL (0.70-1.30); GLUCOSE 160 mg/dL (65-99); SODIUM 137 mmol/L (136-145); TOTAL PROTEIN 7.2 g/dL (6.4-8.2); eGFR BLACK RACES > 60 (>60); eGFR NON BLACK RACES > 60 (>60)
[2017-05-03 05:05] LABS: BASOPHILS # (AUTO) 0.1 X10^3/uL (0.0-0.1); BASOPHILS % (AUTO) 0.5 % (0.2-1.0); EOSINOPHILS # (AUTO) 0.7 x10^3/uL (0.0-0.2); EOSINOPHILS % (AUTO) 5.1 % (0.9-2.9); HEMATOCRIT 41.5 % (42.0-54.0); HEMOGLOBIN 14.3 g/dL (13.5-18.0); LYMPHOCYTES # (AUTO) 1.5 X10^3/uL (1.3-2.9); LYMPHOCYTES % (AUTO) 10.4 % (21.0-51.0); MEAN CORPUSCULAR HEMOGLOBIN 31.2 pg (27.0-34.0); MEAN CORPUSCULAR HGB CONC 34.4 g/dL (33.0-35.0); MEAN CORPUSCULAR VOLUME 90.7 fL (80.0-100.0); MONOCYTES # (AUTO) 1.4 x10^3/uL (0.3-0.8); MONOCYTES % (AUTO) 9.4 % (0.0-13.0); NEUTROPHILS # (AUTO) 10.9 x10^3/uL (2.2-4.8); NEUTROPHILS % (AUTO) 74.6 % (42.0-75.0); PLATELET COUNT 337 X10^3/uL (150.0-450.0); RED BLOOD COUNT 4.57 X10^6/uL (4.7-6.0); RED CELL DISTRIBUTION WIDTH 13.2 % (11.6-16.5); WHITE BLOOD COUNT 14.6 X10^3/uL (3.6-10.0)
[2017-05-03] MEDS: LANTISEPTIC TOP SCH ×3 (05:22→21:26)
--- NOTE | 2017-05-03 06:22 | RAD ---
HISTORY: Shortness of breath Study: AP portable chest Comparison: May 01, 2017 Findings: The heart remains enlarged. No definite congestive heart failure is noted. Bibasilar infiltrates are improving although a residual infiltrate remains. The findings are superimposed on diffuse chronic in terstitial lung disease. No definite pleural effusions are identified. The bony thorax is unremarkabl e. IMPRESSION: Cardiomegaly without congestive heart failure Improving bilateral lower lobe infiltrates superimposed on chronic interstitial lung disease Reported By:
[2017-05-03] MEDS ORDERED: GLUCOPHAGE ONE ×2 (07:50→17:10)
[2017-05-03] MEDS: GLUCOPHAGE PO SCH ×2 (07:55→17:22)
[2017-05-03] MEDS: ATIVAN TAB 1 MG PO SCH ×3 (07:55→21:25)
[2017-05-03] MEDS: PIRFENIDONE PO SCH ×3 (07:55→17:22)
[2017-05-03] MEDS ORDERED: DEXTROSE 5% IV ONE (09:36)
[2017-05-03] MEDS ORDERED: AMINOPHYLLINE IV ONE (09:36)
[2017-05-03] MEDS: XOPENEX 1.25 MG/3 ML NEBULE NEB SCH ×4 (09:37→20:15)
[2017-05-03] MEDS: PULMICORT NEB TX 0.5 MG NEB SCH ×2 (09:38→20:15)
--- NOTE | 2017-05-03 09:50 | PCM.PROG ---
Progress Note - Progress Note for Day of Date: 05/03/17 - Subjective Subjective: IS ALERT AND ORIENTED, SITTING UP IN BED ON MORNING ROUNDS. PATIENT CONTINUES WITH SHORTNESS OF BREATH AND WHEEZING BILATERALLY ON AUSCULTATION. HE IS NOTED WEARING HEATED HIGH FLOW NASAL CANNULA AT THIS TIME. HE REPORTS ACHING ALL OVER. VITALS THIS AM ARE 97.5-101-22-94%-108/64. CBC WNL EXCEPT WBC 14.6, RBC 4.57, HCT 41.5. CMP WNL EXCEPT GLUCOSE 160, ALBUMIN 2.7. HE CONTINUES ON THEOPHYLLINE DRIP. WE PLAN TO CONVERT TO MONICA-DUR 200MG BID WHEN LEVELS ARE THERAPEUTIC. OUR PLANS ARE TO OPEN AIRWAYS UP ENOUGH IN ATTEMPTS TO HELP PATIENT SUSTAIN OXYGEN SATURATIONS WHEN ON CONCENTRATOR. HE WILL BE ACCEPTED AT [facility] IF HE IS ABLE TO SUSTAIN SATURATIONS. WE WILL CONTINUE OUR CURRENT PLAN OF CARE AND START MORPHINE 2MG IV Q2H PRN FOR SEVERE PAIN. WE WILL RECHECK LABS AND XRAY AND FOLLOW UP WITH PATIENT IN AM. - Past Medical Family Social History Past Med/Fam/Surg Hx: No changes since H&P Allergies: Allergies No Known Drug Allergies Allergy (Verified 04/03/17 13:40) - Review of Systems ROS: No change since H&P - Vital Signs and I&O's Vital Signs: Temperature 97.5 F Pulse Rate [Right Brachial] 101 Pulse Rate 101 Respiratory Rate 30 Blood Pressure [Left Arm] 108/64 Blood Pressure [Right Arm] 109/67 Blood Pressure 159/83 O2 Sat by Pulse Oximetry 94 Intake and Output: Intake & Output 04/30/17 05/01/17 05/02/17 05/03/17 11:59 11:59 11:59 11:59 Intake Total 1345 860 142 1623 Output Total 1004 625 0604 1300 Balance -55 498 -110 279 - Physical Exam Oriented: Normal. negative: Time, Person, Place, Not Oriented, Unable to test, Other Eyes: Normal. negative: Blurred Vision, Diplopia, Discharge, Pain, Redness, Photophobia, Other Ear: Normal. negative: Right, Left, Swelling, Ecchymosis, Hemotypanum, Abrasion , Laceration Nose: Normal. negative: Injected, Discharge, Blood, Other Throat: Normal. negative: Tonsillar Hypertrophy, Red, Exudate, Dry, Other Respiratory: Right, Left, Wheezes Cardiovascular: Normal. negative: Tachycardia, Bradycardia, Irregular, S3, S4, Systolic, Diastolic, Murmur, Edema, Other : Normal. negative: Dysuria, Hematuria, Frequency, Discharge, Testicular Pain , Bleeding, , Other Auscultation: Bowel Sounds: Normal. negative: Bruit, Absent, Increased, Decreased, High Pitched, Other Palpation: Normal Tenderness: Normal. negative: Diffuse, RUQ, RLQ, LUQ, LLQ, Epigastric, Periumbilical, Suprapubic, Mild, Moderate, Severe, Rebound, Guarding, Rigidity, Other Skin: Normal. negative: Decreased Turgur, Rash, Papular, Macular, Maculopapular , Vesicular, Pustular, Petechial, Red, Tender, Hot, Diaphoresis, Wound, Bruising , Ecchymosis, Other Musculoskeletal: Normal. negative: Right, Left, Shoulder, Clavicle, Arm, Elbow , Forearm, Wrist, Hand, Hip, Thigh, Knee, Leg, Ankle, Foot, Back:Thoracic, Back: Lumbar, Back:Midline, Back:Paraspinous, Pelvis, Swelling, Tender, Deformity, Pulse Deficit, Motor Deficit, Sensory Deficit, Instability, Crepitance Psychiatric: Normal. negative: Anxiety, Depression, Agitation, Other Mood Description: Calm. negative: Angry, Apathetic, Depressed, Fearful, Flat, Happy, Hostile, Sad, Suspicious, Withdrawn, Anxious, Appropriate, Labile Affect: Normal. negative: Angry, Anxious, Depressed, Flat, Hysterical, Quiet, Violent Speech Pattern: Clear, Appropriate - Laboratory and Diagnostics Result Diagrams: 05/03/17 03:30 05/03/17 03:30 Labs: 04/26/17 16:25 Blood Blood Culture - Final 04/26/17 16:15 Blood Blood Culture - Final 04/27/17 23:24 Sputum - Expectorated Sputum Sputum Culture - Final 04/27/17 23:24 Sputum - Expectorated Sputum - Final 04/26/17 14:16 Urine,Clean Catch Urine Culture - Final 04/26/17 17:17 Sputum - Expectorated Sputum Sputum Culture - Final 04/26/17 17:17 Sputum - Expectorated Sputum - Final Laboratory WBC 14.6 X10^3/uL (3.6-10.0) H 05/03/17 03:30 RBC 4.57 X10^6/uL (4.7-6.0) L 05/03/17 03:30 Hgb 14.3 g/dL (13.5-18.0) 05/03/17 03:30 Hct 41.5 % (42.0-54.0) L 05/03/17 03:30 MCV 90.7 fL (80.0-100.0) 05/03/17 03:30 MCH 31.2 pg (27.0-34.0) 05/03/17 03:30 MCHC 34.4 g/dL (33.0-35.0) 05/03/17 03:30 RDW 13.2 % (11.6-16.5) 05/03/17 03:30 Plt Count 337 X10^3/uL (150.0-450.0) 05/03/17 03:30 Plt Count Comment Adequate (ADEQUATE) 04/29/17 04:15 MPV 8.0 fL (7.4-11.0) 05/03/17 03:30 Neut % 74.6 % (42.0-75.0) 05/03/17 03:30 Lymph % 10.4 % (21.0-51.0) L 05/03/17 03:30 [place] % 9.4 % (0.0-13.0) 05/03/17 03:30 Eos % 5.1 % (0.9-2.9) H 05/03/17 03:30 Baso % 0.5 % (0.2-1.0) 05/03/17 03:30 Neut # 10.9 x10^3/uL (2.2-4.8) H 05/03/17 03:30 Lymph # 1.5 X10^3/uL (1.3-2.9) 05/03/17 03:30 [place] # 1.4 x10^3/uL (0.3-0.8) H 05/03/17 03:30 Eos # 0.7 x10^3/uL (0.0-0.2) H 05/03/17 03:30 Baso # 0.1 X10^3/uL (0.0-0.1) 05/03/17 03:30 Absolute Nucleated RBC 0.0 /100WBC 05/03/17 03:30 Total Counted 100 04/28/17 05:15 Neutrophils % (Manual) 88 % (39-76) H 04/28/17 05:15 Band Neutrophils % 3 % (0-10) 04/28/17 05:15 Lymphocytes % (Manual) 6 % (13-43) L 04/28/17 05:15 Monocytes % (Manual) 2 % (4-9) L 04/28/17 05:15 Eosinophils % (Manual) 1 % (0-6) 04/28/17 05:15 Plt Morphology Comment Normal (NORMAL) 04/29/17 04:15 RBC Morphology Normal (NORMAL) 04/29/17 04:15 Sample Site R rad 04/28/17 00:39 ABG pH 7.430 (7.35-7.45) 04/28/17 00:39 ABG pCO2 38.0 mmHg (35.0-45.0) 04/28/17 00:39 ABG pO2 79.0 mmHg (80.0-100.0) L 04/28/17 00:39 ABG HCO3 25.2 mmol/L (22-26) 04/28/17 00:39 ABG O2 Saturation 96.0 % (90-100) 04/28/17 00:39 ABG Base Excess 1.0 mmol/L (-2.0-2.0) 04/28/17 00:39 Brad Test Pos 04/28/17 00:39 A-a Gradient 301.0 mmHg 04/28/17 00:39 FiO2 60.000 04/28/17 00:39 Blood Gas Comments Cristi well, afh 04/28/17 00:39 Sodium 137 mmol/L (136-145) 05/03/17 03:30 Corrected Sodium 138 mmol/L (136-145) 05/03/17 03:30 Potassium 3.8 mmol/L (3.5-5.1) 05/03/17 03:30 Chloride 99 mmol/L (98-107) 05/03/17 03:30 Carbon Dioxide 29.0 mmol/L (21-32) 05/03/17 03:30 BUN 14 mg/dL (7-18) 05/03/17 03:30 Creatinine 0.78 mg/dL (0.70-1.30) 05/03/17 03:30 Est GFR (MDRD) Af Amer > 60 (>60) 05/03/17 03:30 Est GFR (MDRD) Non-Af > 60 (>60) 05/03/17 03:30 Glucose 160 mg/dL (65-99) H 05/03/17 03:30 Calcium 8.5 mg/dL (8.5-10.1) 05/03/17 03:30 Corrected Calcium 9.5 mg/dL (8.5-10.1) 05/03/17 03:30 Total Bilirubin 1.00 mg/dL (0.2-1.0) 05/03/17 03:30 AST 19 Units/L (15-37) 05/03/17 03:30 ALT 29 Units/L (12-78) 05/03/17 03:30 Alkaline Phosphatase 82 Units/L (46-116) 05/03/17 03:30 Total Protein 7.2 g/dL (6.4-8.2) 05/03/17 03:30 Albumin 2.7 g/dL (3.4-5.0) L 05/03/17 03:30 Globulin 4.5 g/dL (2.5-4.5) 05/03/17 03:30 Albumin/Globulin Ratio 0.6 Ratio (1.1-2.1) L 05/03/17 03:30 Specimen Type Catherized urine 04/28/17 01:08 Urine Color Yellow (YELLOW) 04/28/17 01:08 Urine Appearance Clear (CLEAR) 04/28/17 01:08 Urine pH 5.0 (5.0 - 8.0) 04/28/17 01:08 Ur Specific [place] 1.025 (1.000-1.030) 04/28/17 01:08 Urine Protein 2+ (NEGATIVE) 04/28/17 01:08 Urine Glucose (UA) 3+ (NEGATIVE) 04/28/17 01:08 Urine Ketones 3+ (NEGATIVE) 04/28/17 01:08 Urine Occult Blood 2+ (NEGATIVE) 04/28/17 01:08 Urine Nitrite Negative (NEGATIVE) 04/28/17 01:08 Urine Bilirubin Negative (NEGATIVE) 04/28/17 01:08 Urine Urobilinogen Normal (NORMAL) 04/28/17 01:08 Ur Leukocyte Esterase Negative (NEGATIVE) 04/28/17 01:08 Urine RBC 0-3 /HPF (NEGATIVE) 04/28/17 01:08 Urine WBC 0-2 /HPF (NEGATIVE) 04/28/17 01:08 Ur Squamous Epith Cells Rare /HPF (NEGATIVE) 04/28/17 01:08 Amorphous Sediment 1+ /HPF (NEGATIVE) 04/26/17 14:16 Urine Bacteria Trace /HPF (NEGATIVE) 04/28/17 01:08 Urine Mucus Many /HPF (NEGATIVE) 04/28/17 01:08 Ur Culture Indicated? No/not indicated 04/28/17 01:08 Theophylline 7.2 ug/mL (10-20) L 05/03/17 07:00 - Plan (1) Pulmonary fibrosis Status: Acute Plan: SUPPLEMENTAL OXYGEN, DUONEB AND PULMICORT INHALERS, MONITOR ABG AND LABS, CONTINUE TO MONITOR PATIENT. (2) [id number] respiratory failure Status: Acute Qualifiers: Respiratory failure complication: hypoxia Qualified Code(s): J96.21 - Acute and chronic respiratory failure with hypoxia Plan: THEOPHYLLINE DRIP, SUPPLEMENTAL OXYGEN, DUONEB AND PULMICORT INHALERS, MONITOR ABG AND LABS, CONTINUE TO MONITOR PATIENT. (3) Diabetes mellitus Status: Acute Qualifiers: Diabetes mellitus type: type 2 Diabetes mellitus complication status: with unspecified complications Diabetes mellitus prison insulin use: with prison use Qualified Code(s): E11.8 - Type 2 diabetes mellitus with unspecified complications; Z79.4 - FDC (current) use of insulin Plan: CONTINUE JANUVIA, CONTINUE GLUCOPHAGE, CONTINUE TO MONITOR (4) Hyperlipidemia Status: Acute Qualifiers: Hyperlipidemia type: mixed hyperlipidemia Qualified Code(s): E78.2 - Mixed hyperlipidemia Plan: CONTINUE CRESTOR, CONTINUE TO MONITOR
[2017-05-03] MEDS: JANUVIA PO SCH (09:52)
[2017-05-03] MEDS: MAXIPIME 1 GM IV PREMIX 1 GM/50 ML BAG IV SCH ×2 (09:53→21:24)
[2017-05-03] MEDS: LEVAQUIN PREMIX IV 500 MG 500 MG/100 ML BAG IV SCH (09:53)
[2017-05-03] MEDS: MILK OF MAGNESIA PO SCH (09:54)
[2017-05-03] MEDS: FLONASE NASAL SPRAY ENOSTRIL SCH (09:54)
[2017-05-03] MEDS: MORPHINE SULFATE INJ 2 MG IVP PRN (09:59)
[2017-05-03] MEDS: ATIVAN TAB 1 MG PO PRN (18:40)
[2017-05-03] MEDS: NORCO 10/325 TAB PO PRN (18:41)
[2017-05-03] MEDS: COLACE CAP 100 MG PO SCH (21:24)
[2017-05-03] MEDS: CRESTOR TAB 10 MG PO SCH (21:25)
[2017-05-03] MEDS: SNACK - Diabetic Appropriate PO SCH (21:26)
[2017-05-04] MEDS: AMINOPHYLLINE INJ 1,000 MG in DEXTROSE 5% 460 ML IV PRN (03:00)
[2017-05-04] MEDS: ATIVAN TAB 1 MG PO PRN (03:00)
[2017-05-04] MEDS: NORCO 10/325 TAB PO PRN ×3 (03:00→20:59)
[2017-05-04] MEDS: LANTISEPTIC TOP SCH ×3 (05:02→21:25)
[2017-05-04 05:13] LABS: BASOPHILS # (AUTO) 0.1 X10^3/uL (0.0-0.1); BASOPHILS % (AUTO) 0.7 % (0.2-1.0); EOSINOPHILS # (AUTO) 0.8 x10^3/uL (0.0-0.2); EOSINOPHILS % (AUTO) 5.3 % (0.9-2.9); HEMATOCRIT 40.2 % (42.0-54.0); HEMOGLOBIN 13.6 g/dL (13.5-18.0); LYMPHOCYTES # (AUTO) 1.1 X10^3/uL (1.3-2.9); LYMPHOCYTES % (AUTO) 6.8 % (21.0-51.0); MEAN CORPUSCULAR HGB CONC 33.8 g/dL (33.0-35.0); MEAN CORPUSCULAR VOLUME 91.9 fL (80.0-100.0); MONOCYTES # (AUTO) 1.2 x10^3/uL (0.3-0.8); MONOCYTES % (AUTO) 7.6 % (0.0-13.0); NEUTROPHILS # (AUTO) 12.8 x10^3/uL (2.2-4.8); NEUTROPHILS % (AUTO) 79.6 % (42.0-75.0); PLATELET COUNT 344 X10^3/uL (150.0-450.0); RED BLOOD COUNT 4.38 X10^6/uL (4.7-6.0); RED CELL DISTRIBUTION WIDTH 13.2 % (11.6-16.5); WHITE BLOOD COUNT 16.1 X10^3/uL (3.6-10.0)
[2017-05-04 05:32] LABS: ALANINE AMINOTRANSFERASE 26 Units/L (12-78); ALBUMIN 2.5 g/dL (3.4-5.0); ALKALINE PHOSPHATASE 79 Units/L (46-116); ASPARTATE AMINO TRANSFERASE 16 Units/L (15-37); BLOOD UREA NITROGEN 16 mg/dL (7-18); CALCIUM 8.8 mg/dL (8.5-10.1); CARBON DIOXIDE 28.2 mmol/L (21-32); CHLORIDE 99 mmol/L (98-107); COR NA(FOR HYPERGLY) 138 mmol/L (136-145); CREATININE 0.83 mg/dL (0.70-1.30); GLUCOSE 181 mg/dL (65-99); SODIUM 136 mmol/L (136-145); TOTAL PROTEIN 6.7 g/dL (6.4-8.2); eGFR BLACK RACES > 60 (>60); eGFR NON BLACK RACES > 60 (>60)
--- NOTE | 2017-05-04 07:16 | RAD ---
Chest, one view Indication: Respiratory failure, pulmonary fibrosis, shortness of breath. Comparison: 05/03/2017 Findings: There is stable mild cardiac silhouette enlargement. There are chronic interstitial changes of the lungs again noted with mild bibasilar airspace disease, similar to prior. There is no overt e clovis, large effusion, or pneumothorax identified. The bony thorax is unremarkable. Impression: No significant change from prior. Reported By:
[2017-05-04] MEDS ORDERED: GLUCOPHAGE ONE ×2 (07:39→08:03)
[2017-05-04] MEDS: PIRFENIDONE PO SCH ×3 (08:00→17:13)
[2017-05-04] MEDS: GLUCOPHAGE PO SCH ×2 (08:10→17:13)
[2017-05-04] MEDS: JANUVIA PO SCH (09:00)
[2017-05-04] MEDS: LEVAQUIN PREMIX IV 500 MG 500 MG/100 ML BAG IV SCH (09:01)
[2017-05-04] MEDS: ATIVAN TAB 1 MG PO SCH ×2 (09:01→21:00)
[2017-05-04] MEDS: MILK OF MAGNESIA PO SCH (09:02)
[2017-05-04] MEDS: FLONASE NASAL SPRAY ENOSTRIL SCH (09:02)
[2017-05-04] MEDS: THEO-DUR TAB 300 MG PO SCH ×2 (09:14→20:59)
[2017-05-04] MEDS: MAXIPIME 1 GM IV PREMIX 1 GM/50 ML BAG IV SCH ×2 (09:15→21:00)
[2017-05-04] MEDS: XOPENEX 1.25 MG/3 ML NEBULE NEB SCH ×4 (09:46→21:05)
[2017-05-04] MEDS: PULMICORT NEB TX 0.5 MG NEB SCH ×2 (09:46→21:05)
[2017-05-04] MEDS: CRESTOR TAB 10 MG PO SCH (20:59)
[2017-05-04] MEDS: COLACE CAP 100 MG PO SCH (20:59)
[2017-05-04] MEDS: SNACK - Diabetic Appropriate PO SCH (21:00)
[2017-05-05] MEDS: NORCO 10/325 TAB PO PRN (02:11)
[2017-05-05] MEDS: ATIVAN TAB 1 MG PO PRN ×2 (02:12→15:31)
[2017-05-05 05:16] LABS: BASOPHILS # (AUTO) 0.1 X10^3/uL (0.0-0.1); BASOPHILS % (AUTO) 0.7 % (0.2-1.0); EOSINOPHILS # (AUTO) 0.5 x10^3/uL (0.0-0.2); EOSINOPHILS % (AUTO) 3.5 % (0.9-2.9); HEMATOCRIT 39.2 % (42.0-54.0); HEMOGLOBIN 13.2 g/dL (13.5-18.0); LYMPHOCYTES # (AUTO) 1.1 X10^3/uL (1.3-2.9); LYMPHOCYTES % (AUTO) 7.1 % (21.0-51.0); MEAN CORPUSCULAR HEMOGLOBIN 30.7 pg (27.0-34.0); MEAN CORPUSCULAR HGB CONC 33.7 g/dL (33.0-35.0); MEAN CORPUSCULAR VOLUME 91.1 fL (80.0-100.0); MEAN PLATELET VOLUME 8.1 fL (7.4-11.0); MONOCYTES # (AUTO) 1.3 x10^3/uL (0.3-0.8); MONOCYTES % (AUTO) 8.5 % (0.0-13.0); NEUTROPHILS # (AUTO) 12.3 x10^3/uL (2.2-4.8); NEUTROPHILS % (AUTO) 80.2 % (42.0-75.0); PLATELET COUNT 311 X10^3/uL (150.0-450.0); RED CELL DISTRIBUTION WIDTH 12.8 % (11.6-16.5); WHITE BLOOD COUNT 15.3 X10^3/uL (3.6-10.0)
[2017-05-05] MEDS: LANTISEPTIC TOP SCH ×3 (05:20→22:59)
[2017-05-05 05:22] LABS: ALANINE AMINOTRANSFERASE 23 Units/L (12-78); ALBUMIN 2.5 g/dL (3.4-5.0); ALKALINE PHOSPHATASE 80 Units/L (46-116); ASPARTATE AMINO TRANSFERASE 15 Units/L (15-37); BLOOD UREA NITROGEN 16 mg/dL (7-18); CALCIUM 8.5 mg/dL (8.5-10.1); CHLORIDE 100 mmol/L (98-107); COR CA(FOR HYPOALB) 9.7 mg/dL (8.5-10.1); COR NA(FOR HYPERGLY) 137 mmol/L (136-145); CREATININE 0.82 mg/dL (0.70-1.30); GLUCOSE 183 mg/dL (65-99); SODIUM 135 mmol/L (136-145); TOTAL PROTEIN 6.7 g/dL (6.4-8.2); eGFR BLACK RACES > 60 (>60); eGFR NON BLACK RACES > 60 (>60)
[2017-05-05] MEDS ORDERED: GLUCOPHAGE ONE ×2 (07:40→18:16)
[2017-05-05] MEDS: GLUCOPHAGE PO SCH ×2 (07:43→18:23)
[2017-05-05] MEDS: PIRFENIDONE PO SCH ×3 (07:43→18:23)
--- NOTE | 2017-05-05 07:45 | RAD ---
Chest, one view Indication: Shortness of breath. Comparison: 05/04/2017 Findings: There is decreased depth of inspiration. Accounting for this, mild cardiac silhouette enlar gement is stable. Chronic interstitial changes of the lungs again noted with mild basilar predominant patchy airspace disease. No large effusion or pneumothorax. The bony thorax is unremarkable. Impression: No significant change from prior. Reported By:
[2017-05-05] MEDS: THEO-DUR TAB 300 MG PO SCH ×2 (09:12→20:26)
[2017-05-05] MEDS: JANUVIA PO SCH (09:12)
[2017-05-05] MEDS: MAXIPIME 1 GM IV PREMIX 1 GM/50 ML BAG IV SCH ×2 (09:13→20:26)
[2017-05-05] MEDS: LEVAQUIN PREMIX IV 500 MG 500 MG/100 ML BAG IV SCH (09:13)
[2017-05-05] MEDS: FLONASE NASAL SPRAY ENOSTRIL SCH (09:13)
[2017-05-05] MEDS: ATIVAN TAB 1 MG PO SCH ×2 (09:13→20:13)
[2017-05-05] MEDS: PULMICORT NEB TX 0.5 MG NEB SCH ×2 (09:25→20:42)
[2017-05-05] MEDS: XOPENEX 1.25 MG/3 ML NEBULE NEB SCH ×4 (09:25→20:42)
[2017-05-05] MEDS: MILK OF MAGNESIA PO SCH ×2 (09:28→19:54)
[2017-05-05] MEDS: ZOFRAN INJ 4 MG VIAL IVP PRN ×2 (14:20→20:00)
[2017-05-05] MEDS ORDERED: NORCO 5/325 MG TAB PO PRN (18:23)
[2017-05-05] MEDS: MORPHINE SULFATE INJ 2 MG IVP PRN (19:55)
[2017-05-05] MEDS: SNACK - Diabetic Appropriate PO SCH (19:58)
[2017-05-05] MEDS: COLACE CAP 100 MG PO SCH (20:14)
[2017-05-05] MEDS: CRESTOR TAB 10 MG PO SCH (20:27)
[2017-05-06] MEDS: MORPHINE SULFATE INJ 2 MG IVP PRN ×2 (02:27→09:33)
[2017-05-06] MEDS: ZOFRAN INJ 4 MG VIAL IVP PRN ×2 (02:29→10:45)
[2017-05-06] MEDS: ATIVAN TAB 1 MG PO PRN (05:04)
[2017-05-06 05:34] LABS: BASOPHILS # (AUTO) 0.1 X10^3/uL (0.0-0.1); BASOPHILS % (AUTO) 0.7 % (0.2-1.0); EOSINOPHILS # (AUTO) 0.3 x10^3/uL (0.0-0.2); EOSINOPHILS % (AUTO) 2.1 % (0.9-2.9); HEMATOCRIT 41.2 % (42.0-54.0); HEMOGLOBIN 14.2 g/dL (13.5-18.0); LYMPHOCYTES % (AUTO) 6.1 % (21.0-51.0); MEAN CORPUSCULAR HEMOGLOBIN 31.7 pg (27.0-34.0); MEAN CORPUSCULAR HGB CONC 34.6 g/dL (33.0-35.0); MEAN CORPUSCULAR VOLUME 91.6 fL (80.0-100.0); MEAN PLATELET VOLUME 8.1 fL (7.4-11.0); MONOCYTES # (AUTO) 1.2 x10^3/uL (0.3-0.8); MONOCYTES % (AUTO) 7.7 % (0.0-13.0); NEUTROPHILS # (AUTO) 13.6 x10^3/uL (2.2-4.8); NEUTROPHILS % (AUTO) 83.4 % (42.0-75.0); PLATELET COUNT 316 X10^3/uL (150.0-450.0); RED CELL DISTRIBUTION WIDTH 13.2 % (11.6-16.5); WHITE BLOOD COUNT 16.3 X10^3/uL (3.6-10.0)
[2017-05-06 05:40] LABS: ALANINE AMINOTRANSFERASE 18 Units/L (12-78); ALBUMIN 2.5 g/dL (3.4-5.0); ALKALINE PHOSPHATASE 82 Units/L (46-116); ASPARTATE AMINO TRANSFERASE 21 Units/L (15-37); BLOOD UREA NITROGEN 15 mg/dL (7-18); CALCIUM 8.8 mg/dL (8.5-10.1); CARBON DIOXIDE 28.3 mmol/L (21-32); CHLORIDE 100 mmol/L (98-107); COR NA(FOR HYPERGLY) 139 mmol/L (136-145); CREATININE 0.76 mg/dL (0.70-1.30); GLUCOSE 164 mg/dL (65-99); SODIUM 137 mmol/L (136-145); TOTAL PROTEIN 6.8 g/dL (6.4-8.2); eGFR BLACK RACES > 60 (>60); eGFR NON BLACK RACES > 60 (>60)
[2017-05-06] MEDS: LANTISEPTIC TOP SCH ×2 (06:03→15:03)
[2017-05-06] MEDS: GLUCOPHAGE PO SCH (06:07)
[2017-05-06] MEDS: PIRFENIDONE PO SCH ×2 (06:08→11:32)
--- NOTE | 2017-05-06 06:35 | RAD ---
HISTORY: Shortness of breath Study: AP portable chest Comparison: May 05, 2017 Findings: The heart is enlarged. Mild pulmonary venous congestion is present. The lungs remain hypoinflated. Di ffuse chronic interstitial lung disease is stable. Patchy alveolar filling in the right lung bases is unchanged. No definite pleural effusions are identified. The bony thorax is unremarkable. IMPRESSION: Cardiomegaly with mild pulmonary venous congestion. Hypo inflation Diffuse interstitial lung changes with superimposed basilar patchy alveolar infiltrates, stable Reported By:
[2017-05-06] MEDS ORDERED: GLUCOPHAGE ONE (08:32)
--- NOTE | 2017-05-06 08:41 | PCM.PROG ---
Progress Note - Progress Note for Day of Date: 05/06/17 - Subjective Subjective: IS ALERT AND ORIENTED, SITTING IN HIGH FOWLERS POSITION ON MORNING ROUNDS. HE IS NOTED WITH SHORTNESS OF BREATH AND HEAVY BREATHING ON MORNING ROUNDS. HE IS NOTED WEARING HEATED HIGH FLOW OXYGEN AT THIS TIME WITH OXYGEN SATURATIONS AT 90%. LUNGS ARE NOTED WITH SCATTERED WHEEZING ON AUSCULTATION. VITALS THIS AM ARE 98.0-108-43-90%-109/72. CBC WNL EXCEPT WBC 16.3 , RBC 4.50, HCT 41.2. CMP WNL EXCEPT GLUCOSE 164, ALBUMIN 2.5. CHEST XRAY REPORTED CARDIOMEGALY WITH MILD PULMONARY VENOUS CONGESTION, HYPOINFLATION, AND DIFFUSE INTERSTITIAL LUNG CHANGES WITH SUPERIMPOSED BASILAR PATCHY ALVEOLAR INFILTRATES. WE ARE CONTINUING TO DISCUSS OUR OPTIONS FOR PATIENT WITH CASE MANAGEMENT, HOSPICE, AND [facility]. WE WILL CONTINUE CURRENT PLAN OF CARE, CHECK THEOPHYLLINE LEVELS AND ABG. WE WILL RECHECK CBC, CMP, AND FOLLOW UP WITH PATIENT IN AM. - Past Medical Family Social History Past Med/Fam/Surg Hx: No changes since H&P Allergies: Allergies No Known Drug Allergies Allergy (Verified 04/03/17 13:40) - Review of Systems ROS: No change since H&P - Vital Signs and I&O's Vital Signs: Temperature 98 F Pulse Rate [Right Brachial] 108 Pulse Rate 104 Respiratory Rate 43 Blood Pressure [Left Arm] 105/69 Blood Pressure [Right Arm] 109/72 Blood Pressure 159/83 O2 Sat by Pulse Oximetry 90 Intake and Output: Intake & Output 05/03/17 05/04/17 05/05/17 05/06/17 11:59 11:59 11:59 11:59 Intake Total 7824 682 7640 797 Output Total 1300 700 950 625 Balance 279 212 50 172 - Physical Exam Oriented: Normal. negative: Time, Person, Place, Not Oriented, Unable to test, Other Eyes: Normal. negative: Blurred Vision, Diplopia, Discharge, Pain, Redness, Photophobia, Other Ear: Normal. negative: Right, Left, Swelling, Ecchymosis, Hemotypanum, Abrasion , Laceration Nose: Normal. negative: Injected, Discharge, Blood, Other Throat: Normal. negative: Tonsillar Hypertrophy, Red, Exudate, Dry, Other Respiratory: Right, Left, Wheezes Cardiovascular: Normal. negative: Tachycardia, Bradycardia, Irregular, S3, S4, Systolic, Diastolic, Murmur, Edema, Other : Normal. negative: Dysuria, Hematuria, Frequency, Discharge, Testicular Pain , Bleeding, , Other Auscultation: Bowel Sounds: Normal. negative: Bruit, Absent, Increased, Decreased, High Pitched, Other Palpation: Normal Tenderness: Normal. negative: Diffuse, RUQ, RLQ, LUQ, LLQ, Epigastric, Periumbilical, Suprapubic, Mild, Moderate, Severe, Rebound, Guarding, Rigidity, Other Skin: Normal. negative: Decreased Turgur, Rash, Papular, Macular, Maculopapular , Vesicular, Pustular, Petechial, Red, Tender, Hot, Diaphoresis, Wound, Bruising , Ecchymosis, Other Musculoskeletal: Normal. negative: Right, Left, Shoulder, Clavicle, Arm, Elbow , Forearm, Wrist, Hand, Hip, Thigh, Knee, Leg, Ankle, Foot, Back:Thoracic, Back: Lumbar, Back:Midline, Back:Paraspinous, Pelvis, Swelling, Tender, Deformity, Pulse Deficit, Motor Deficit, Sensory Deficit, Instability, Crepitance Psychiatric: Normal. negative: Anxiety, Depression, Agitation, Other Mood Description: Calm. negative: Angry, Apathetic, Depressed, Fearful, Flat, Happy, Hostile, Sad, Suspicious, Withdrawn, Anxious, Appropriate, Labile Affect: Normal. negative: Angry, Anxious, Depressed, Flat, Hysterical, Quiet, Violent Speech Pattern: Clear, Appropriate - Laboratory and Diagnostics Result Diagrams: 05/06/17 03:35 05/06/17 03:35 Labs: 04/26/17 16:25 Blood Blood Culture - Final 04/26/17 16:15 Blood Blood Culture - Final 04/27/17 23:24 Sputum - Expectorated Sputum Sputum Culture - Final 04/27/17 23:24 Sputum - Expectorated Sputum - Final 04/26/17 14:16 Urine,Clean Catch Urine Culture - Final 04/26/17 17:17 Sputum - Expectorated Sputum Sputum Culture - Final 04/26/17 17:17 Sputum - Expectorated Sputum - Final Laboratory WBC 16.3 X10^3/uL (3.6-10.0) H 05/06/17 03:35 RBC 4.50 X10^6/uL (4.7-6.0) L 05/06/17 03:35 Hgb 14.2 g/dL (13.5-18.0) 05/06/17 03:35 Hct 41.2 % (42.0-54.0) L 05/06/17 03:35 MCV 91.6 fL (80.0-100.0) 05/06/17 03:35 MCH 31.7 pg (27.0-34.0) 05/06/17 03:35 MCHC 34.6 g/dL (33.0-35.0) 05/06/17 03:35 RDW 13.2 % (11.6-16.5) 05/06/17 03:35 Plt Count 316 X10^3/uL (150.0-450.0) 05/06/17 03:35 Plt Count Comment Adequate (ADEQUATE) 04/29/17 04:15 MPV 8.1 fL (7.4-11.0) 05/06/17 03:35 Neut % 83.4 % (42.0-75.0) H 05/06/17 03:35 Lymph % 6.1 % (21.0-51.0) L 05/06/17 03:35 [place] % 7.7 % (0.0-13.0) 05/06/17 03:35 Eos % 2.1 % (0.9-2.9) 05/06/17 03:35 Baso % 0.7 % (0.2-1.0) 05/06/17 03:35 Neut # 13.6 x10^3/uL (2.2-4.8) H 05/06/17 03:35 Lymph # 1.0 X10^3/uL (1.3-2.9) L 05/06/17 03:35 [place] # 1.2 x10^3/uL (0.3-0.8) H 05/06/17 03:35 Eos # 0.3 x10^3/uL (0.0-0.2) H 05/06/17 03:35 Baso # 0.1 X10^3/uL (0.0-0.1) 05/06/17 03:35 Absolute Nucleated RBC 0.0 /100WBC 05/06/17 03:35 Total Counted 100 04/28/17 05:15 Neutrophils % (Manual) 88 % (39-76) H 04/28/17 05:15 Band Neutrophils % 3 % (0-10) 04/28/17 05:15 Lymphocytes % (Manual) 6 % (13-43) L 04/28/17 05:15 Monocytes % (Manual) 2 % (4-9) L 04/28/17 05:15 Eosinophils % (Manual) 1 % (0-6) 04/28/17 05:15 Plt Morphology Comment Normal (NORMAL) 04/29/17 04:15 RBC Morphology Normal (NORMAL) 04/29/17 04:15 Sample Site R rad 04/28/17 00:39 ABG pH 7.430 (7.35-7.45) 04/28/17 00:39 ABG pCO2 38.0 mmHg (35.0-45.0) 04/28/17 00:39 ABG pO2 79.0 mmHg (80.0-100.0) L 04/28/17 00:39 ABG HCO3 25.2 mmol/L (22-26) 04/28/17 00:39 ABG O2 Saturation 96.0 % (90-100) 04/28/17 00:39 ABG Base Excess 1.0 mmol/L (-2.0-2.0) 04/28/17 00:39 Brad Test Pos 04/28/17 00:39 A-a Gradient 301.0 mmHg 04/28/17 00:39 FiO2 60.000 04/28/17 00:39 Blood Gas Comments Cristi well, afh 04/28/17 00:39 Sodium 137 mmol/L (136-145) 05/06/17 03:35 Corrected Sodium 139 mmol/L (136-145) 05/06/17 03:35 Potassium 4.0 mmol/L (3.5-5.1) 05/06/17 03:35 Chloride 100 mmol/L (98-107) 05/06/17 03:35 Carbon Dioxide 28.3 mmol/L (21-32) 05/06/17 03:35 BUN 15 mg/dL (7-18) 05/06/17 03:35 Creatinine 0.76 mg/dL (0.70-1.30) 05/06/17 03:35 Est GFR (MDRD) Af Amer > 60 (>60) 05/06/17 03:35 Est GFR (MDRD) Non-Af > 60 (>60) 05/06/17 03:35 Glucose 164 mg/dL (65-99) H 05/06/17 03:35 Calcium 8.8 mg/dL (8.5-10.1) 05/06/17 03:35 Corrected Calcium 10.0 mg/dL (8.5-10.1) 05/06/17 03:35 Total Bilirubin 0.80 mg/dL (0.2-1.0) 05/06/17 03:35 AST 21 Units/L (15-37) 05/06/17 03:35 ALT 18 Units/L (12-78) 05/06/17 03:35 Alkaline Phosphatase 82 Units/L (46-116) 05/06/17 03:35 Total Protein 6.8 g/dL (6.4-8.2) 05/06/17 03:35 Albumin 2.5 g/dL (3.4-5.0) L 05/06/17 03:35 Globulin 4.3 g/dL (2.5-4.5) 05/06/17 03:35 Albumin/Globulin Ratio 0.6 Ratio (1.1-2.1) L 05/06/17 03:35 Specimen Type Catherized urine 04/28/17 01:08 Urine Color Yellow (YELLOW) 04/28/17 01:08 Urine Appearance Clear (CLEAR) 04/28/17 01:08 Urine pH 5.0 (5.0 - 8.0) 04/28/17 01:08 Ur Specific [place] 1.025 (1.000-1.030) 04/28/17 01:08 Urine Protein 2+ (NEGATIVE) 04/28/17 01:08 Urine Glucose (UA) 3+ (NEGATIVE) 04/28/17 01:08 Urine Ketones 3+ (NEGATIVE) 04/28/17 01:08 Urine Occult Blood 2+ (NEGATIVE) 04/28/17 01:08 Urine Nitrite Negative (NEGATIVE) 04/28/17 01:08 Urine Bilirubin Negative (NEGATIVE) 04/28/17 01:08 Urine Urobilinogen Normal (NORMAL) 04/28/17 01:08 Ur Leukocyte Esterase Negative (NEGATIVE) 04/28/17 01:08 Urine RBC 0-3 /HPF (NEGATIVE) 04/28/17 01:08 Urine WBC 0-2 /HPF (NEGATIVE) 04/28/17 01:08 Ur Squamous Epith Cells Rare /HPF (NEGATIVE) 04/28/17 01:08 Amorphous Sediment 1+ /HPF (NEGATIVE) 04/26/17 14:16 Urine Bacteria Trace /HPF (NEGATIVE) 04/28/17 01:08 Urine Mucus Many /HPF (NEGATIVE) 04/28/17 01:08 Ur Culture Indicated? No/not indicated 04/28/17 01:08 Theophylline 6.4 ug/mL (10-20) L 05/04/17 03:30 - Plan (1) Pulmonary fibrosis Status: Acute Plan: SUPPLEMENTAL OXYGEN, DUONEB AND PULMICORT INHALERS, MONITOR ABG AND LABS, CONTINUE TO MONITOR PATIENT. (2) [id number] respiratory failure Status: Acute Qualifiers: Respiratory failure complication: hypoxia Qualified Code(s): J96.21 - Acute and chronic respiratory failure with hypoxia Plan: THEOPHYLLINE 300MG PO BID, SUPPLEMENTAL OXYGEN, DUONEB AND PULMICORT INHALERS, MONITOR ABG AND LABS, CONTINUE TO MONITOR PATIENT. 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
[2017-05-06] MEDS: PULMICORT NEB TX 0.5 MG NEB SCH (08:53)
[2017-05-06] MEDS: XOPENEX 1.25 MG/3 ML NEBULE NEB SCH ×2 (08:53→12:11)
[2017-05-06] MEDS: MAXIPIME 1 GM IV PREMIX 1 GM/50 ML BAG IV SCH (09:27)
[2017-05-06] MEDS: MILK OF MAGNESIA PO SCH (09:28)
[2017-05-06] MEDS: LEVAQUIN PREMIX IV 500 MG 500 MG/100 ML BAG IV SCH (09:28)
[2017-05-06] MEDS: FLONASE NASAL SPRAY ENOSTRIL SCH (09:29)
[2017-05-06] MEDS: JANUVIA PO SCH (09:29)
[2017-05-06] MEDS: THEO-DUR TAB 300 MG PO SCH (09:29)
[2017-05-06] MEDS: ATIVAN TAB 1 MG PO SCH (09:29)
[2017-05-06] MEDS ORDERED: MEGACE PO SCH ×2 (10:00→21:00)
[2017-05-06 12:26] VITALS: BP 103/73
[2017-05-06] MEDS ORDERED: MORPHINE SULFATE INJ 2 MG IVP SCH (17:00)
[2017-05-06] MEDS ORDERED: BROVANA IN SCH (21:00)
== END 2017-05-06 15:59 | disposition swing bed (61) | DRG 196 ==
LOC: ICU 12:01 → MED/SURG 05-02 14:00
PROVIDERS: ADMIT Internal Medicine; ATTEND Internal Medicine
DX: J84.10 Pulmonary fibrosis, unspecified (principal); J96.21 Acute and chronic respiratory failure with hypoxia; F41.8 Other specified anxiety disorders; J44.9 Chronic obstructive pulmonary disease, unspecified; M13.89 Other specified arthritis, multiple sites; E11.65 Type 2 diabetes mellitus with hyperglycemia; E78.2 Mixed hyperlipidemia; I51.7 Cardiomegaly; Z79.4 Long term (current) use of insulin
CPT/HCPCS: 36415; 36600; 71010; 80053; 80198; 81001; 82803; 85025; 87040; 87070; 87086; 87205; 93005; 94640; 94660; A4216; A4222; A4618; A7030; S0179; J0280; J0456; J0692; J1630; J1815; J1940; J1956; J2060; J2270; J2405; J2930; J7620; J7626

== ENCOUNTER 2017-05-06 15:59 | Inpatient (IN) | payer OTHER, MEDICARE ==
[2017-05-06] MEDS ORDERED: TYLENOL 325 MG TAB PO PRN (16:27)
[2017-05-06] MEDS ORDERED: PROVENTIL NEB TX 0.083% 2.5MG/ 3ML NEB PRN (16:28)
[2017-05-06] MEDS: MORPHINE SULFATE INJ 2 MG INJ IVP SCH ×2 (16:51→21:43)
[2017-05-06] MEDS: XOPENEX 1.25 MG/3 ML NEBULE NEB SCH ×2 (16:53→21:48)
[2017-05-06] MEDS: PIRFENIDONE PO SCH (16:54)
[2017-05-06] MEDS: GLUCOPHAGE PO SCH (17:01)
[2017-05-06] MEDS: MORPHINE SULFATE INJ 2 MG INJ IVP PRN ×2 (17:04→23:00)
[2017-05-06] MEDS: COLACE CAP 100 MG PO SCH (20:18)
[2017-05-06] MEDS: NORCO 5/325 MG TAB PO PRN (20:20)
[2017-05-06] MEDS: ATIVAN TAB 1 MG PO SCH (20:20)
[2017-05-06] MEDS: THEO-DUR TAB 300 MG PO SCH (20:21)
[2017-05-06] MEDS: MAXIPIME 1 GM IV PREMIX 1 GM/50 ML BAG IV SCH (20:21)
[2017-05-06] MEDS: CRESTOR TAB 10 MG PO SCH (20:21)
[2017-05-06] MEDS: BROVANA IN SCH (21:48)
[2017-05-06] MEDS: PULMICORT NEB TX 0.5 MG NEB SCH (21:49)
[2017-05-06] MEDS: LANTISEPTIC TOP SCH (22:27)
[2017-05-07] MEDS: MORPHINE SULFATE INJ 2 MG INJ IVP PRN (01:44)
[2017-05-07] MEDS: NORCO 5/325 MG TAB PO PRN ×2 (02:15→20:53)
[2017-05-07 04:53] LABS: BASOPHILS # (AUTO) 0.2 X10^3/uL (0.0-0.1); BASOPHILS % (AUTO) 1.1 % (0.2-1.0); EOSINOPHILS # (AUTO) 0.4 x10^3/uL (0.0-0.2); EOSINOPHILS % (AUTO) 2.5 % (0.9-2.9); HEMOGLOBIN 13.5 g/dL (13.5-18.0); LYMPHOCYTES # (AUTO) 1.4 X10^3/uL (1.3-2.9); LYMPHOCYTES % (AUTO) 8.5 % (21.0-51.0); MEAN CORPUSCULAR HEMOGLOBIN 30.6 pg (27.0-34.0); MEAN CORPUSCULAR HGB CONC 33.8 g/dL (33.0-35.0); MEAN CORPUSCULAR VOLUME 90.4 fL (80.0-100.0); MONOCYTES # (AUTO) 1.1 x10^3/uL (0.3-0.8); MONOCYTES % (AUTO) 6.4 % (0.0-13.0); NEUTROPHILS # (AUTO) 13.7 x10^3/uL (2.2-4.8); NEUTROPHILS % (AUTO) 81.5 % (42.0-75.0); PLATELET COUNT 367 X10^3/uL (150.0-450.0); RED BLOOD COUNT 4.42 X10^6/uL (4.7-6.0); RED CELL DISTRIBUTION WIDTH 13.3 % (11.6-16.5); WHITE BLOOD COUNT 16.8 X10^3/uL (3.6-10.0)
[2017-05-07] MEDS: LANTISEPTIC TOP SCH ×3 (05:01→20:59)
[2017-05-07 05:04] LABS: ALANINE AMINOTRANSFERASE 18 Units/L (12-78); ALBUMIN 2.4 g/dL (3.4-5.0); ALKALINE PHOSPHATASE 73 Units/L (46-116); ASPARTATE AMINO TRANSFERASE 15 Units/L (15-37); BLOOD UREA NITROGEN 17 mg/dL (7-18); CALCIUM 8.7 mg/dL (8.5-10.1); CARBON DIOXIDE 29.8 mmol/L (21-32); CHLORIDE 99 mmol/L (98-107); COR NA(FOR HYPERGLY) 140 mmol/L (136-145); CREATININE 0.75 mg/dL (0.70-1.30); SODIUM 138 mmol/L (136-145); TOTAL PROTEIN 6.5 g/dL (6.4-8.2); eGFR BLACK RACES > 60 (>60); eGFR NON BLACK RACES > 60 (>60)
[2017-05-07 05:10] LABS: ABG BASE EXCESS 9.5 mmol/L (-2.0-2.0)
[2017-05-07 05:11] LABS: ABG ALLEN TEST POS; ABG HCO3 34.8 mmol/L (22-26)
[2017-05-07] MEDS: GLUCOPHAGE PO SCH ×2 (06:06→17:01)
[2017-05-07] MEDS: PIRFENIDONE PO SCH ×3 (06:07→17:01)
--- NOTE | 2017-05-07 06:09 | RAD ---
HISTORY: Shortness of breath Study: AP portable chest Comparison: May 06, 2017 Findings: The heart remains enlarged. Pulmonary venous congestion is present. Diffuse chronic interstitial lung disease is stable. Superimposed patchy alveolar filling is present in the right lung unchanged. No p leural effusions are identified. The lungs are generally hypoinflated. The bony thorax is unremarkabl e. IMPRESSION: No significant change from the prior examination Reported By:
[2017-05-07 07:56] VITALS: BMI 30.4
[2017-05-07] MEDS ORDERED: ZOFRAN INJ 4 MG VIAL IVP PRN (08:46)
--- NOTE | 2017-05-07 09:01 | DR.UPDATE ---
H&P Update History and Physical Update: ' H&P WAS COMPLETED ON 04/26/17. HE HAS BEEN CHANGED TO SWINGBED STATUS WITH NO CHANGES TO H&P NOTED. WE WILL CONTINUE IV ANTIBIOTICS AND RESPIRATORY TREATMENTS. Changes noted: NO Yes with the following:
[2017-05-07] MEDS: LEVAQUIN PREMIX IV 500 MG 500 MG/100 ML BAG IV SCH (09:05)
[2017-05-07] MEDS: FLONASE NASAL SPRAY ENOSTRIL SCH (09:05)
[2017-05-07] MEDS: MAXIPIME 1 GM IV PREMIX 1 GM/50 ML BAG IV SCH ×2 (09:05→20:44)
[2017-05-07] MEDS: NS 1000 ML 1,000 ML IV SCH (09:05)
[2017-05-07] MEDS: JANUVIA PO SCH (09:06)
[2017-05-07] MEDS: THEO-DUR TAB 300 MG PO SCH ×2 (09:06→20:43)
[2017-05-07] MEDS: MORPHINE SULFATE PCA 30 MG IV SCH ×10 (09:11→18:11)
[2017-05-07] MEDS: MORPHINE SULFATE INJ 2 MG INJ IVP SCH (09:47)
[2017-05-07] MEDS: XOPENEX 1.25 MG/3 ML NEBULE NEB SCH ×4 (09:47→20:27)
[2017-05-07] MEDS: BROVANA IN SCH ×2 (09:47→20:26)
[2017-05-07] MEDS: PULMICORT NEB TX 0.5 MG NEB SCH ×2 (09:47→20:26)
[2017-05-07] MEDS: ATIVAN TAB 1 MG PO SCH ×3 (10:17→20:44)
[2017-05-07] MEDS: SNACK - Diabetic Appropriate PO SCH ×2 (10:17→21:00)
[2017-05-07] MEDS: MILK OF MAGNESIA PO SCH (10:17)
--- NOTE | 2017-05-07 11:48 | PCM.PROG ---
Progress Note - Progress Note for Day of Date: 05/07/17 - Subjective Subjective: WAS CHANGED TO SWINGBED STATUS FOR RESPIRATORY THERAPY AND MANAGEMENT YESTERDAY. HE IS ALERT AND ORIENTED, LYING IN BED ON MORNING ROUNDS. HE CONTINUES WITH SHORTNESS OF BREATH AND COUGHING. HE IS NOTED WEARING HIGH FLOW HEATED OXYGEN. LUNGS CONTINUE WITH WHEEZING ON AUSCULTATION. VITALS THIS AM ARE 97.8-98-26-96%-99/63. CBC WNL EXCEPT WBC 16.8, RBC 4.42, HCT 40. CMP WNL EXCEPT GLUCOSE 163, ALBUMIN 2.4. ABG REPORTS PH 7.46, PC02 49, P02 62, HC03 34.8, BASE EXCESS 9.5. WE DISCUSSED WITH PATIENT A LOW DOSE OF MORPHINE ADMINISTERED THROUGH [facility] TO ASSIST WITH RESPIRATORY EFFORTS AND PAIN. PATIENT IS IN AGREEMENT AT THIS TIME. WE WILL START MORPHINE 1MG/HR THROUGH [facility]. WE PLAN TO REASSESS AND FOLLOW UP WITH PATIENT IN AM. - Past Medical Family Social History Past Med/Fam/Surg Hx: No changes since H&P Allergies: Allergies No Known Drug Allergies Allergy (Verified 04/03/17 13:40) - Review of Systems ROS: No change since H&P - Vital Signs and I&O's Vital Signs: Temperature 98.5 F Pulse Rate [Radial] 104 Pulse Rate 97 Respiratory Rate 34 Blood Pressure [Left Arm] 110/69 Blood Pressure [Right Arm] 109/72 Blood Pressure 159/83 O2 Sat by Pulse Oximetry 100 Intake and Output: Intake & Output 05/04/17 05/05/17 05/06/17 05/07/17 11:59 11:59 11:59 11:59 Intake Total 1130 Output Total 250 Balance 880 - Physical Exam Oriented: Normal Eyes: Normal Ear: Normal Nose: Normal Throat: Dry Respiratory: Generalized, Wheezes Cardiovascular: Normal : Normal Auscultation: Bowel Sounds: Normal Palpation: Normal Tenderness: Normal Skin: Normal Musculoskeletal: Normal Psychiatric: Normal Mood Description: Calm Affect: Normal Speech Pattern: Clear, Appropriate - Laboratory and Diagnostics Result Diagrams: 05/07/17 03:55 05/07/17 03:55 Labs: Laboratory WBC 16.8 X10^3/uL (3.6-10.0) H 05/07/17 03:55 RBC 4.42 X10^6/uL (4.7-6.0) L 05/07/17 03:55 Hgb 13.5 g/dL (13.5-18.0) 05/07/17 03:55 Hct 40.0 % (42.0-54.0) L 05/07/17 03:55 MCV 90.4 fL (80.0-100.0) 05/07/17 03:55 MCH 30.6 pg (27.0-34.0) 05/07/17 03:55 MCHC 33.8 g/dL (33.0-35.0) 05/07/17 03:55 RDW 13.3 % (11.6-16.5) 05/07/17 03:55 Plt Count 367 X10^3/uL (150.0-450.0) 05/07/17 03:55 MPV 8.0 fL (7.4-11.0) 05/07/17 03:55 Neut % 81.5 % (42.0-75.0) H 05/07/17 03:55 Lymph % 8.5 % (21.0-51.0) L 05/07/17 03:55 [place] % 6.4 % (0.0-13.0) 05/07/17 03:55 Eos % 2.5 % (0.9-2.9) 05/07/17 03:55 Baso % 1.1 % (0.2-1.0) H 05/07/17 03:55 Neut # 13.7 x10^3/uL (2.2-4.8) H 05/07/17 03:55 Lymph # 1.4 X10^3/uL (1.3-2.9) 05/07/17 03:55 [place] # 1.1 x10^3/uL (0.3-0.8) H 05/07/17 03:55 Eos # 0.4 x10^3/uL (0.0-0.2) H 05/07/17 03:55 Baso # 0.2 X10^3/uL (0.0-0.1) H 05/07/17 03:55 Absolute Nucleated RBC 0.0 /100WBC 05/07/17 03:55 Sample Site R rad 05/07/17 04:59 ABG pH 7.460 (7.35-7.45) H 05/07/17 04:59 ABG pCO2 49.0 mmHg (35.0-45.0) H 05/07/17 04:59 ABG pO2 62.0 mmHg (80.0-100.0) L 05/07/17 04:59 ABG HCO3 34.8 mmol/L (22-26) H* 05/07/17 04:59 ABG O2 Saturation 93.0 % (90-100) 05/07/17 04:59 ABG Base Excess 9.5 mmol/L (-2.0-2.0) H 05/07/17 04:59 Brad Test Pos 05/07/17 04:59 A-a Gradient 340.0 mmHg 05/07/17 04:59 FiO2 65.000 05/07/17 04:59 Blood Gas Comments Cristi well, af 05/07/17 04:59 Sodium 138 mmol/L (136-145) 05/07/17 03:55 Corrected Sodium 140 mmol/L (136-145) 05/07/17 03:55 Potassium 3.5 mmol/L (3.5-5.1) 05/07/17 03:55 Chloride 99 mmol/L (98-107) 05/07/17 03:55 Carbon Dioxide 29.8 mmol/L (21-32) 05/07/17 03:55 BUN 17 mg/dL (7-18) 05/07/17 03:55 Creatinine 0.75 mg/dL (0.70-1.30) 05/07/17 03:55 Est GFR (MDRD) Af Amer > 60 (>60) 05/07/17 03:55 Est GFR (MDRD) Non-Af > 60 (>60) 05/07/17 03:55 Glucose 163 mg/dL (65-99) H 05/07/17 03:55 Calcium 8.7 mg/dL (8.5-10.1) 05/07/17 03:55 Corrected Calcium 10.0 mg/dL (8.5-10.1) 05/07/17 03:55 Total Bilirubin 0.60 mg/dL (0.2-1.0) 05/07/17 03:55 AST 15 Units/L (15-37) 05/07/17 03:55 ALT 18 Units/L (12-78) 05/07/17 03:55 Alkaline Phosphatase 73 Units/L (46-116) 05/07/17 03:55 Total Protein 6.5 g/dL (6.4-8.2) 05/07/17 03:55 Albumin 2.4 g/dL (3.4-5.0) L 05/07/17 03:55 Globulin 4.1 g/dL (2.5-4.5) 05/07/17 03:55 Albumin/Globulin Ratio 0.6 Ratio (1.1-2.1) L 05/07/17 03:55 - Plan (1) [id number] respiratory failure Status: Acute Qualifiers: Respiratory failure complication: hypoxia and hypercapnia Qualified Code(s) : J96.21 - Acute and chronic respiratory failure with hypoxia; J96.22 - Acute and chronic respiratory failure with hypercapnia Plan: THEOPHYLLINE 300MG PO BID, HEATED HIGH FLOW OXYGEN, DUONEB AND PULMICORT TREATMENTS, MONITOR ABG AND LABS, CONTINUE TO MONITOR PATIENT (2) Pulmonary fibrosis Status: Acute Plan: HEATED HIGH FLOW OXYGEN, DUONEB AND PULMICORT TREATMENTS, MONITOR ABG AND LABS, CONTINUE TO MONITOR PATIENT. (3) Diabetes mellitus Status: Chronic Qualifiers: Diabetes mellitus type: type 2 Diabetes mellitus complication status: with unspecified complications Diabetes mellitus half-way insulin use: with half-way use Qualified Code(s): E11.8 - Type 2 diabetes mellitus with unspecified complications; Z79.4 - terminal worker (current) use of insulin Plan: CONTINUE JANUVIA, CONTINUE GLUCOPHAGE, CONTINUE SLIDING SCALE INSULIN, CONTINUE TO MONITOR (4) Hyperlipidemia Status: Chronic Qualifiers: Hyperlipidemia type: mixed hyperlipidemia Qualified Code(s): E78.2 - Mixed hyperlipidemia Plan: CONTINUE CRESTOR, CONTINUE TO MONITOR
[2017-05-07] MEDS: CRESTOR TAB 10 MG PO SCH (20:43)
[2017-05-07] MEDS: COLACE CAP 100 MG PO SCH (20:43)
[2017-05-08] MEDS: MORPHINE SULFATE PCA 30 MG IV SCH ×8 (00:20→18:07)
[2017-05-08] MEDS: ATIVAN TAB 0.5 MG PO PRN ×2 (02:41→16:42)
[2017-05-08] MEDS: NORCO 5/325 MG TAB PO PRN ×2 (02:41→21:34)
[2017-05-08] MEDS: LANTISEPTIC TOP SCH ×3 (06:39→21:26)
[2017-05-08] MEDS: GLUCOPHAGE PO SCH ×2 (06:40→18:12)
[2017-05-08] MEDS: PIRFENIDONE PO SCH ×3 (06:40→18:10)
[2017-05-08] MEDS ORDERED: SOLU-Medrol 40 MG VIAL IVP ONE (09:06)
[2017-05-08] MEDS: BROVANA IN SCH ×2 (09:18→21:27)
[2017-05-08] MEDS: PULMICORT NEB TX 0.5 MG NEB SCH ×2 (09:19→21:27)
[2017-05-08] MEDS: XOPENEX 1.25 MG/3 ML NEBULE NEB SCH ×4 (09:19→21:27)
[2017-05-08] MEDS: MAXIPIME 1 GM IV PREMIX 1 GM/50 ML BAG IV SCH ×2 (09:32→20:51)
[2017-05-08] MEDS: JANUVIA PO SCH (09:33)
[2017-05-08] MEDS: ATIVAN TAB 1 MG PO SCH ×2 (09:33→20:51)
[2017-05-08] MEDS: THEO-DUR TAB 300 MG PO SCH ×2 (09:33→20:52)
[2017-05-08] MEDS: FLONASE NASAL SPRAY ENOSTRIL SCH (09:36)
[2017-05-08] MEDS: MORPHINE SULFATE INJ 2 MG INJ IVP PRN ×3 (11:13→21:33)
[2017-05-08] MEDS: MILK OF MAGNESIA PO SCH (14:08)
[2017-05-08] MEDS: PROTONIX INJ 40 MG VIAL IVP SCH ×2 (14:14→20:52)
[2017-05-08] MEDS: LEVAQUIN PREMIX IV 500 MG 500 MG/100 ML BAG IV SCH (14:15)
[2017-05-08] MEDS ORDERED: SOLU-Medrol 40 MG VIAL IVP NR (15:00)
[2017-05-08] MEDS: NS 1000 ML 1,000 ML IV SCH (18:08)
[2017-05-08] MEDS: SNACK - Diabetic Appropriate PO SCH (20:50)
[2017-05-08] MEDS: COLACE CAP 100 MG PO SCH (20:51)
[2017-05-08] MEDS: CRESTOR TAB 10 MG PO SCH (20:51)
[2017-05-08] MEDS: HumuLIN R SUBCUT PRN (20:54)
[2017-05-08] MEDS: SOLU-Medrol 40 MG VIAL IVP SCH (21:27)
[2017-05-09] MEDS: XOPENEX 1.25 MG/3 ML NEBULE NEB SCH ×5 (02:00→20:56)
[2017-05-09] MEDS: ATIVAN TAB 0.5 MG PO PRN ×2 (02:06→15:02)
[2017-05-09] MEDS: NORCO 5/325 MG TAB PO PRN ×2 (02:30→21:21)
[2017-05-09] MEDS: MORPHINE SULFATE INJ 2 MG INJ IVP PRN ×4 (04:30→15:50)
[2017-05-09 05:00] LABS: BASOPHILS # (AUTO) 0.1 X10^3/uL (0.0-0.1); BASOPHILS % (AUTO) 0.5 % (0.2-1.0); HEMATOCRIT 40.4 % (42.0-54.0); HEMOGLOBIN 13.8 g/dL (13.5-18.0); LYMPHOCYTES # (AUTO) 0.7 X10^3/uL (1.3-2.9); LYMPHOCYTES % (AUTO) 6.2 % (21.0-51.0); MEAN CORPUSCULAR HEMOGLOBIN 31.3 pg (27.0-34.0); MEAN CORPUSCULAR HGB CONC 34.1 g/dL (33.0-35.0); MEAN CORPUSCULAR VOLUME 91.8 fL (80.0-100.0); MEAN PLATELET VOLUME 8.2 fL (7.4-11.0); MONOCYTES # (AUTO) 0.3 x10^3/uL (0.3-0.8); MONOCYTES % (AUTO) 2.4 % (0.0-13.0); NEUTROPHILS # (AUTO) 10.6 x10^3/uL (2.2-4.8); NEUTROPHILS % (AUTO) 90.9 % (42.0-75.0); PLATELET COUNT 428 X10^3/uL (150.0-450.0); RED CELL DISTRIBUTION WIDTH 13.3 % (11.6-16.5); WHITE BLOOD COUNT 11.6 X10^3/uL (3.6-10.0)
[2017-05-09 05:11] LABS: ALANINE AMINOTRANSFERASE 19 Units/L (12-78); ALBUMIN 2.6 g/dL (3.4-5.0); ALKALINE PHOSPHATASE 83 Units/L (46-116); ASPARTATE AMINO TRANSFERASE 19 Units/L (15-37); BLOOD UREA NITROGEN 18 mg/dL (7-18); CALCIUM 8.7 mg/dL (8.5-10.1); CARBON DIOXIDE 28.9 mmol/L (21-32); CHLORIDE 99 mmol/L (98-107); COR CA(FOR HYPOALB) 9.8 mg/dL (8.5-10.1); COR NA(FOR HYPERGLY) 137 mmol/L (136-145); CREATININE 0.82 mg/dL (0.70-1.30); SODIUM 134 mmol/L (136-145); TOTAL PROTEIN 6.7 g/dL (6.4-8.2); eGFR BLACK RACES > 60 (>60); eGFR NON BLACK RACES > 60 (>60)
[2017-05-09 05:41] LABS: BAND NEUTROPHILS % 7 % (0-10); PLATELET MORPHOLOGY COMMENT NORMAL (NORMAL)
[2017-05-09] MEDS ORDERED: GLUCOPHAGE ONE ×2 (05:52→17:43)
[2017-05-09] MEDS: SOLU-Medrol 40 MG VIAL IVP SCH ×3 (05:57→21:45)
[2017-05-09] MEDS: HumuLIN R SUBCUT PRN ×4 (05:57→21:39)
[2017-05-09] MEDS: GLUCOPHAGE PO SCH ×2 (06:03→18:00)
[2017-05-09] MEDS: PIRFENIDONE PO SCH ×3 (06:05→18:01)
[2017-05-09] MEDS: LANTISEPTIC TOP SCH ×3 (06:06→21:22)
--- NOTE | 2017-05-09 06:53 | RAD ---
HISTORY: Shortness of breath. Study: Portable chest. Comparison: Chest x-ray dated May 07, 2017. Findings: The trachea is midline. The cardiac silhouette is enlarged but unchanged. No significant change in lung aeration. No obvious pleural effusion or pneumothorax. The bony thorax is unremarkable. IMPRESSION: No significant change. Reported By:
[2017-05-09] MEDS: JANUVIA PO SCH (09:02)
[2017-05-09] MEDS: THEO-DUR TAB 300 MG PO SCH ×3 (09:02→21:51)
[2017-05-09] MEDS: ATIVAN TAB 1 MG PO SCH ×2 (09:02→20:58)
[2017-05-09] MEDS: FLONASE NASAL SPRAY ENOSTRIL SCH (09:02)
[2017-05-09] MEDS: LEVAQUIN PREMIX IV 500 MG 500 MG/100 ML BAG IV SCH (09:03)
[2017-05-09] MEDS: PROTONIX INJ 40 MG VIAL IVP SCH ×2 (09:03→21:51)
[2017-05-09] MEDS: NS 1000 ML 1,000 ML IV SCH (09:03)
[2017-05-09] MEDS: MILK OF MAGNESIA PO SCH (09:03)
[2017-05-09] MEDS: MAXIPIME 1 GM IV PREMIX 1 GM/50 ML BAG IV SCH ×2 (09:03→23:01)
[2017-05-09] MEDS: BROVANA IN SCH ×2 (09:06→20:56)
[2017-05-09] MEDS: PULMICORT NEB TX 0.5 MG NEB SCH ×2 (09:06→20:57)
[2017-05-09] MEDS: ROBITUSSIN DM PO PRN ×2 (10:01→21:42)
[2017-05-09] MEDS ORDERED: Atrovent NEB TX 0.02% ONE (20:39)
[2017-05-09] MEDS: COLACE CAP 100 MG PO SCH (21:20)
[2017-05-09] MEDS: SNACK - Diabetic Appropriate PO SCH (21:38)
[2017-05-09] MEDS: CRESTOR TAB 10 MG PO SCH (21:51)
[2017-05-10] MEDS: MORPHINE SULFATE INJ 2 MG INJ IVP PRN (00:59)
[2017-05-10] MEDS: NORCO 5/325 MG TAB PO PRN ×2 (02:52→21:42)
[2017-05-10] MEDS: ATIVAN TAB 0.5 MG PO PRN (02:52)
[2017-05-10] MEDS ORDERED: GLUCOPHAGE ONE (06:05)
[2017-05-10] MEDS: SOLU-Medrol 40 MG VIAL IVP SCH ×3 (06:09→21:41)
[2017-05-10] MEDS: PIRFENIDONE PO SCH ×3 (06:13→16:18)
[2017-05-10] MEDS: GLUCOPHAGE PO SCH ×2 (06:14→16:17)
[2017-05-10] MEDS: LANTISEPTIC TOP SCH ×3 (06:14→21:50)
[2017-05-10] MEDS: HumuLIN R SUBCUT PRN ×4 (06:23→22:06)
[2017-05-10] MEDS: ATIVAN TAB 1 MG PO SCH ×6 (08:00→21:42)
[2017-05-10] MEDS: XOPENEX 1.25 MG/3 ML NEBULE NEB SCH ×4 (09:03→21:14)
[2017-05-10] MEDS: BROVANA IN SCH ×2 (09:03→21:14)
[2017-05-10] MEDS: PULMICORT NEB TX 0.5 MG NEB SCH ×2 (09:03→21:14)
[2017-05-10] MEDS: JANUVIA PO SCH (09:41)
[2017-05-10] MEDS: MILK OF MAGNESIA PO SCH (09:42)
--- NOTE | 2017-05-10 09:59 | PCM.PROG ---
Progress Note - Progress Note for Day of Date: 05/10/17 - Subjective Subjective: IS ALERT AND ORIENTED, SITTING UP IN BED ON MORNING ROUNDS. FAMILY AT BEDSIDE. PATIENT COMPLAINS OF SHORTNESS OF BREATH AND HAS LABORED BREATHING. PATIENT REPORTS THAT HE FEELS LIKE HE NEEDS MORE ATIVAN. HE STATES THAT HE DOESN'T FEEL LIKE THE DOSE AND FREQUENCY THAT IS ORDERED NOW IS ENOUGH FOR HIM. HE APPEARS VERY ANXIOUS AT THE TIME. HE IS NOTED WEARING HEATED HIGH FLOW OXYGEN. VITALS THIS MORNING ARE 98.0-92-23-88%-99/66. LUNGS ARE NOTED WITH SCATTERED WHEEZING. WE WILL CHANGE THE ATIVAN TO 1MG PO Q4H SCHEDULED. PATIENT IS IN AGREEMENT AND FEELS LIKE THIS WILL HELP. LABS WILL BE OBTAINED OVER THE WEEKEND AND WILL FOLLOW UP WITH PATIENT UNTIL WE RETURN ON SATURDAY. - Past Medical Family Social History Past Med/Fam/Surg Hx: No changes since H&P Allergies: Allergies No Known Drug Allergies Allergy (Verified 04/03/17 13:40) - Review of Systems ROS: No change since H&P - Vital Signs and I&O's Vital Signs: Temperature 97.7 F Pulse Rate [Left Brachial] 101 Pulse Rate [Radial] 104 Pulse Rate 111 Respiratory Rate 46 Blood Pressure [Left Arm] 111/67 Blood Pressure [Right Arm] 109/72 Blood Pressure 159/83 O2 Sat by Pulse Oximetry 100 Intake and Output: Intake & Output 05/07/17 05/08/17 05/09/17 05/10/17 11:59 11:59 11:59 11:59 Intake Total 8327 804 0928 820 Output Total 250 486 578 5880 Balance 880 150 415 -205 - Physical Exam Oriented: Normal Eyes: Normal Ear: Normal Nose: Normal Throat: Dry Respiratory: Generalized, Wheezes Cardiovascular: Normal : Normal Auscultation: Bowel Sounds: Normal Palpation: Normal Tenderness: Normal Skin: Normal Musculoskeletal: Normal Psychiatric: Normal Mood Description: Anxious Affect: Anxious Speech Pattern: Clear, Appropriate - Laboratory and Diagnostics Result Diagrams: 05/09/17 03:50 05/09/17 03:50 Labs: Laboratory WBC 11.6 X10^3/uL (3.6-10.0) H 05/09/17 03:50 RBC 4.40 X10^6/uL (4.7-6.0) L 08/31/17 03:50 Hgb 13.8 g/dL (13.5-18.0) 05/09/17 03:50 Hct 40.4 % (42.0-54.0) L 05/09/17 03:50 MCV 91.8 fL (80.0-100.0) 05/09/17 03:50 MCH 31.3 pg (27.0-34.0) 05/09/17 03:50 MCHC 34.1 g/dL (33.0-35.0) 05/09/17 03:50 RDW 13.3 % (11.6-16.5) 05/09/17 03:50 Plt Count 428 X10^3/uL (150.0-450.0) 05/09/17 03:50 Plt Count Comment Adequate (ADEQUATE) 05/09/17 03:50 MPV 8.2 fL (7.4-11.0) 05/09/17 03:50 Neut % 90.9 % (42.0-75.0) H 05/09/17 03:50 Lymph % 6.2 % (21.0-51.0) L 05/09/17 03:50 [place] % 2.4 % (0.0-13.0) 05/09/17 03:50 Eos % 0.0 % (0.9-2.9) L 05/09/17 03:50 Baso % 0.5 % (0.2-1.0) 05/09/17 03:50 Neut # 10.6 x10^3/uL (2.2-4.8) H 05/09/17 03:50 Lymph # 0.7 X10^3/uL (1.3-2.9) L 05/09/17 03:50 [place] # 0.3 x10^3/uL (0.3-0.8) 05/09/17 03:50 Eos # 0.0 x10^3/uL (0.0-0.2) 05/09/17 03:50 Baso # 0.1 X10^3/uL (0.0-0.1) 05/09/17 03:50 Absolute Nucleated RBC 0.0 /100WBC 05/09/17 03:50 Total Counted 100 05/09/17 03:50 Neutrophils % (Manual) 89 % (39-76) H 05/09/17 03:50 Band Neutrophils % 7 % (0-10) 05/09/17 03:50 Lymphocytes % (Manual) 4 % (13-43) L 05/09/17 03:50 Plt Morphology Comment Normal (NORMAL) 05/09/17 03:50 RBC Morphology Normal (NORMAL) 05/09/17 03:50 Sample Site R rad 05/07/17 04:59 ABG pH 7.460 (7.35-7.45) H 05/07/17 04:59 ABG pCO2 49.0 mmHg (35.0-45.0) H 05/07/17 04:59 ABG pO2 62.0 mmHg (80.0-100.0) L 05/07/17 04:59 ABG HCO3 34.8 mmol/L (22-26) H* 05/07/17 04:59 ABG O2 Saturation 93.0 % (90-100) 05/07/17 04:59 ABG Base Excess 9.5 mmol/L (-2.0-2.0) H 05/07/17 04:59 Brad Test Pos 05/07/17 04:59 A-a Gradient 340.0 mmHg 05/07/17 04:59 FiO2 65.000 05/07/17 04:59 Blood Gas Comments Cristi well, afh 05/07/17 04:59 Sodium 134 mmol/L (136-145) L 05/09/17 03:50 Corrected Sodium 137 mmol/L (136-145) 05/09/17 03:50 Potassium 4.4 mmol/L (3.5-5.1) 05/09/17 03:50 Chloride 99 mmol/L (98-107) 05/09/17 03:50 Carbon Dioxide 28.9 mmol/L (21-32) 05/09/17 03:50 BUN 18 mg/dL (7-18) 05/09/17 03:50 Creatinine 0.82 mg/dL (0.70-1.30) 05/09/17 03:50 Est GFR (MDRD) Af Amer > 60 (>60) 05/09/17 03:50 Est GFR (MDRD) Non-Af > 60 (>60) 05/09/17 03:50 Glucose 242 mg/dL (65-99) H 05/09/17 03:50 Calcium 8.7 mg/dL (8.5-10.1) 05/09/17 03:50 Corrected Calcium 9.8 mg/dL (8.5-10.1) 05/09/17 03:50 Total Bilirubin 0.50 mg/dL (0.2-1.0) 05/09/17 03:50 AST 19 Units/L (15-37) 05/09/17 03:50 ALT 19 Units/L (12-78) 05/09/17 03:50 Alkaline Phosphatase 83 Units/L (46-116) 05/09/17 03:50 Total Protein 6.7 g/dL (6.4-8.2) 05/09/17 03:50 Albumin 2.6 g/dL (3.4-5.0) L 05/09/17 03:50 Globulin 4.1 g/dL (2.5-4.5) 05/09/17 03:50 Albumin/Globulin Ratio 0.6 Ratio (1.1-2.1) L 05/09/17 03:50 - Plan (1) [id number] respiratory failure Status: Acute Qualifiers: Respiratory failure complication: hypoxia and hypercapnia Qualified Code(s) : J96.21 - Acute and chronic respiratory failure with hypoxia; J96.22 - Acute and chronic respiratory failure with hypercapnia Plan: THEOPHYLLINE 300MG PO BID, HEATED HIGH FLOW OXYGEN, DUONEB AND PULMICORT TREATMENTS, MONITOR ABG AND LABS, CONTINUE TO MONITOR PATIENT (2) Pulmonary fibrosis Status: Acute Plan: HEATED HIGH FLOW OXYGEN, DUONEB AND PULMICORT TREATMENTS, MONITOR ABG AND LABS, CONTINUE TO MONITOR PATIENT. (3) Diabetes mellitus Status: Chronic Qualifiers: Diabetes mellitus type: type 2 Diabetes mellitus complication status: with unspecified complications Diabetes mellitus terminal manager insulin use: with penitentiary use Qualified Code(s): E11.8 - Type 2 diabetes mellitus with unspecified complications; Z79.4 - longterm (current) use of insulin Plan: CONTINUE JANUVIA, CONTINUE GLUCOPHAGE, CONTINUE SLIDING SCALE INSULIN, CONTINUE TO MONITOR (4) Hyperlipidemia Status: Chronic Qualifiers: Hyperlipidemia type: mixed hyperlipidemia Qualified Code(s): E78.2 - Mixed hyperlipidemia Plan: CONTINUE CRESTOR, CONTINUE TO MONITOR
[2017-05-10] MEDS: FLONASE NASAL SPRAY ENOSTRIL SCH (10:11)
[2017-05-10] MEDS: THEO-DUR TAB 300 MG PO SCH ×2 (10:12→21:42)
[2017-05-10] MEDS: MAXIPIME 1 GM IV PREMIX 1 GM/50 ML BAG IV SCH ×2 (10:12→21:41)
[2017-05-10] MEDS: LEVAQUIN PREMIX IV 500 MG 500 MG/100 ML BAG IV SCH (10:12)
[2017-05-10] MEDS: PROTONIX INJ 40 MG VIAL IVP SCH ×2 (10:12→21:42)
[2017-05-10] MEDS: NS 1000 ML 1,000 ML IV SCH (10:12)
[2017-05-10] MEDS: ROBITUSSIN DM PO PRN (21:41)
[2017-05-10] MEDS: COLACE CAP 100 MG PO SCH (21:43)
[2017-05-10] MEDS: CRESTOR TAB 10 MG PO SCH (21:43)
[2017-05-10] MEDS: SNACK - Diabetic Appropriate PO SCH (21:43)
[2017-05-11] MEDS: ATIVAN TAB 1 MG PO SCH ×6 (00:12→21:19)
[2017-05-11] MEDS: NORCO 5/325 MG TAB PO PRN ×2 (05:37→21:22)
[2017-05-11] MEDS: LANTISEPTIC TOP SCH ×3 (06:22→21:21)
[2017-05-11] MEDS: SOLU-Medrol 40 MG VIAL IVP SCH ×3 (06:22→21:20)
[2017-05-11] MEDS: HumuLIN R SUBCUT PRN ×4 (06:37→21:35)
[2017-05-11] MEDS: PIRFENIDONE PO SCH ×4 (07:12→17:11)
[2017-05-11] MEDS: GLUCOPHAGE PO SCH ×3 (07:13→17:11)
[2017-05-11] MEDS ORDERED: GLUCOPHAGE ONE ×2 (07:55→16:01)
[2017-05-11] MEDS: MILK OF MAGNESIA PO SCH (08:13)
[2017-05-11] MEDS: JANUVIA PO SCH (08:13)
[2017-05-11] MEDS: PROTONIX INJ 40 MG VIAL IVP SCH ×2 (08:13→21:20)
[2017-05-11] MEDS: THEO-DUR TAB 300 MG PO SCH ×2 (08:14→21:21)
[2017-05-11] MEDS: MAXIPIME 1 GM IV PREMIX 1 GM/50 ML BAG IV SCH ×2 (08:15→21:21)
[2017-05-11] MEDS: LEVAQUIN PREMIX IV 500 MG 500 MG/100 ML BAG IV SCH (08:15)
[2017-05-11] MEDS: FLONASE NASAL SPRAY ENOSTRIL SCH (08:15)
[2017-05-11] MEDS: BROVANA IN SCH ×2 (09:44→21:02)
[2017-05-11] MEDS: XOPENEX 1.25 MG/3 ML NEBULE NEB SCH ×4 (09:45→21:02)
[2017-05-11] MEDS: PULMICORT NEB TX 0.5 MG NEB SCH ×2 (09:45→21:02)
[2017-05-11] MEDS: NS 1000 ML 1,000 ML IV SCH (11:10)
[2017-05-11] MEDS: FLOMAX PO SCH ×2 (21:19→21:22)
[2017-05-11] MEDS: COLACE CAP 100 MG PO SCH (21:20)
[2017-05-11] MEDS: CRESTOR TAB 10 MG PO SCH (21:20)
[2017-05-11] MEDS: SNACK - Diabetic Appropriate PO SCH (21:22)
[2017-05-12] MEDS: ATIVAN TAB 1 MG PO SCH ×7 (01:16→23:50)
[2017-05-12] MEDS: MORPHINE SULFATE INJ 2 MG INJ IVP PRN ×2 (02:19→13:06)
[2017-05-12] MEDS: NORCO 5/325 MG TAB PO PRN ×2 (04:54→08:54)
[2017-05-12] MEDS ORDERED: GLUCOPHAGE ONE ×2 (05:27→15:54)
[2017-05-12] MEDS: LANTISEPTIC TOP SCH ×3 (05:31→23:49)
[2017-05-12 05:57] LABS: BASOPHILS % (AUTO) 0.1 % (0.2-1.0); HEMATOCRIT 36.6 % (42.0-54.0); HEMOGLOBIN 12.4 g/dL (13.5-18.0); LYMPHOCYTES # (AUTO) 0.6 X10^3/uL (1.3-2.9); LYMPHOCYTES % (AUTO) 3.8 % (21.0-51.0); MEAN CORPUSCULAR HEMOGLOBIN 30.6 pg (27.0-34.0); MEAN CORPUSCULAR HGB CONC 33.8 g/dL (33.0-35.0); MEAN CORPUSCULAR VOLUME 90.6 fL (80.0-100.0); MEAN PLATELET VOLUME 7.9 fL (7.4-11.0); MONOCYTES # (AUTO) 0.6 x10^3/uL (0.3-0.8); MONOCYTES % (AUTO) 3.9 % (0.0-13.0); NEUTROPHILS # (AUTO) 13.6 x10^3/uL (2.2-4.8); NEUTROPHILS % (AUTO) 92.2 % (42.0-75.0); PLATELET COUNT 413 X10^3/uL (150.0-450.0); RED BLOOD COUNT 4.04 X10^6/uL (4.7-6.0); RED CELL DISTRIBUTION WIDTH 13.4 % (11.6-16.5); WHITE BLOOD COUNT 14.7 X10^3/uL (3.6-10.0)
[2017-05-12] MEDS: HumuLIN R SUBCUT PRN ×4 (05:59→20:41)
[2017-05-12] MEDS: PIRFENIDONE PO SCH ×3 (06:00→16:08)
[2017-05-12] MEDS: GLUCOPHAGE PO SCH ×2 (06:00→16:06)
[2017-05-12 06:51] LABS: ALANINE AMINOTRANSFERASE 25 Units/L (12-78); ALBUMIN 2.5 g/dL (3.4-5.0); ALKALINE PHOSPHATASE 79 Units/L (46-116); ASPARTATE AMINO TRANSFERASE 15 Units/L (15-37); BLOOD UREA NITROGEN 19 mg/dL (7-18); CALCIUM 8.4 mg/dL (8.5-10.1); CHLORIDE 100 mmol/L (98-107); COR CA(FOR HYPOALB) 9.6 mg/dL (8.5-10.1); COR NA(FOR HYPERGLY) 141 mmol/L (136-145); CREATININE 0.79 mg/dL (0.70-1.30); SODIUM 136 mmol/L (136-145); TOTAL PROTEIN 5.8 g/dL (6.4-8.2); eGFR BLACK RACES > 60 (>60); eGFR NON BLACK RACES > 60 (>60)
[2017-05-12 06:55] LABS: PLATELET MORPHOLOGY COMMENT NORMAL (NORMAL)
--- NOTE | 2017-05-12 07:09 | RAD ---
History: Dyspnea and pulmonary fibrosis. Exam: Single-view chest. Comparison: May 09, 2017. Findings: The trachea is deviated rightward by an ectatic thoracic aorta. The cardiomediastinal silhouette is e nlarged. There are diffusely increased interstitial densities throughout the lung lizama with a perip heral which would imply interstitial lung disease/possible pulmonary fibrosis. This can be followed u p with HRCT imaging of the chest as an outpatient. No new infiltrates, effusion, or pneumothorax is s een. The bones are stable. Impression: Cardiomegaly with findings of interstitial lung disease (possible fibrosis) without acute or new infi ltrate, consolidation, effusion, or pneumothorax appreciated on this exam. Reported By:
[2017-05-12] MEDS: JANUVIA PO SCH (08:48)
[2017-05-12] MEDS: MILK OF MAGNESIA PO SCH (08:48)
[2017-05-12] MEDS: MAXIPIME 1 GM IV PREMIX 1 GM/50 ML BAG IV SCH ×2 (08:48→20:30)
[2017-05-12] MEDS: THEO-DUR TAB 300 MG PO SCH ×2 (08:48→20:28)
[2017-05-12] MEDS: PROTONIX INJ 40 MG VIAL IVP SCH ×2 (08:48→20:30)
[2017-05-12] MEDS: LEVAQUIN PREMIX IV 500 MG 500 MG/100 ML BAG IV SCH (08:49)
[2017-05-12] MEDS: FLONASE NASAL SPRAY ENOSTRIL SCH (08:50)
[2017-05-12] MEDS: NS 1000 ML 1,000 ML IV SCH (08:52)
[2017-05-12] MEDS: PULMICORT NEB TX 0.5 MG NEB SCH ×2 (09:36→20:58)
[2017-05-12] MEDS: XOPENEX 1.25 MG/3 ML NEBULE NEB SCH ×4 (09:36→20:58)
[2017-05-12] MEDS: BROVANA IN SCH ×2 (09:36→20:57)
[2017-05-12] MEDS: NORCO 5/325 MG TAB PO SCH ×3 (13:27→20:28)
[2017-05-12] MEDS: COLACE CAP 100 MG PO SCH (20:28)
[2017-05-12] MEDS: CRESTOR TAB 10 MG PO SCH (20:28)
[2017-05-12] MEDS: FLOMAX PO SCH (20:29)
[2017-05-12] MEDS: SNACK - Diabetic Appropriate PO SCH (20:30)
[2017-05-12] MEDS: ROBITUSSIN DM PO PRN (20:37)
[2017-05-13] MEDS: ATIVAN TAB 1 MG PO SCH ×5 (04:23→21:22)
[2017-05-13] MEDS: NORCO 5/325 MG TAB PO SCH ×6 (04:26→21:23)
[2017-05-13] MEDS: PIRFENIDONE PO SCH ×3 (06:00→17:15)
[2017-05-13] MEDS: LANTISEPTIC TOP SCH ×3 (06:01→21:24)
[2017-05-13] MEDS: GLUCOPHAGE PO SCH ×2 (06:02→17:15)
[2017-05-13] MEDS: XOPENEX 1.25 MG/3 ML NEBULE NEB SCH ×4 (08:19→21:06)
[2017-05-13] MEDS: BROVANA IN SCH ×2 (08:19→21:05)
[2017-05-13] MEDS: PULMICORT NEB TX 0.5 MG NEB SCH ×2 (08:19→21:05)
[2017-05-13] MEDS: NS 1000 ML 1,000 ML IV SCH (09:15)
[2017-05-13] MEDS: FLONASE NASAL SPRAY ENOSTRIL SCH (09:15)
[2017-05-13] MEDS: LEVAQUIN PREMIX IV 500 MG 500 MG/100 ML BAG IV SCH (09:16)
[2017-05-13] MEDS: MAXIPIME 1 GM IV PREMIX 1 GM/50 ML BAG IV SCH ×2 (09:16→21:23)
[2017-05-13] MEDS: JANUVIA PO SCH (09:16)
[2017-05-13] MEDS: PROTONIX INJ 40 MG VIAL IVP SCH ×2 (09:16→21:21)
[2017-05-13] MEDS: MILK OF MAGNESIA PO SCH (09:16)
[2017-05-13] MEDS: THEO-DUR TAB 300 MG PO SCH ×2 (09:17→21:22)
[2017-05-13] MEDS: HumuLIN R SUBCUT PRN ×2 (12:39→17:29)
[2017-05-13] MEDS: SNACK - Diabetic Appropriate PO SCH (21:20)
[2017-05-13] MEDS: FLOMAX PO SCH (21:22)
[2017-05-13] MEDS: CRESTOR TAB 10 MG PO SCH (21:22)
[2017-05-13] MEDS: COLACE CAP 100 MG PO SCH (21:23)
[2017-05-14] MEDS: ATIVAN TAB 1 MG PO SCH ×6 (01:27→20:09)
[2017-05-14] MEDS: NORCO 5/325 MG TAB PO SCH ×6 (01:54→21:09)
[2017-05-14] MEDS: LANTISEPTIC TOP SCH ×3 (05:54→21:13)
[2017-05-14] MEDS: PIRFENIDONE PO SCH ×4 (07:05→16:55)
[2017-05-14] MEDS: GLUCOPHAGE PO SCH ×2 (07:05→16:55)
[2017-05-14] MEDS: PULMICORT NEB TX 0.5 MG NEB SCH ×2 (08:56→21:07)
[2017-05-14] MEDS: BROVANA IN SCH ×2 (08:57→21:07)
[2017-05-14] MEDS: XOPENEX 1.25 MG/3 ML NEBULE NEB SCH ×4 (08:57→21:07)
[2017-05-14] MEDS: MAXIPIME 1 GM IV PREMIX 1 GM/50 ML BAG IV SCH ×2 (09:09→20:11)
[2017-05-14] MEDS: FLONASE NASAL SPRAY ENOSTRIL SCH (09:09)
[2017-05-14] MEDS: NS 1000 ML 1,000 ML IV SCH (09:09)
[2017-05-14] MEDS: LEVAQUIN PREMIX IV 500 MG 500 MG/100 ML BAG IV SCH (09:09)
[2017-05-14] MEDS: PROTONIX INJ 40 MG VIAL IVP SCH (09:11)
[2017-05-14] MEDS: JANUVIA PO SCH (09:11)
[2017-05-14] MEDS: MILK OF MAGNESIA PO SCH (09:11)
[2017-05-14] MEDS: THEO-DUR TAB 300 MG PO SCH ×2 (09:11→20:10)
[2017-05-14] MEDS: HumuLIN R SUBCUT PRN ×2 (13:22→21:02)
[2017-05-14] MEDS: SNACK - Diabetic Appropriate PO SCH (20:09)
[2017-05-14] MEDS: FLOMAX PO SCH (20:09)
[2017-05-14] MEDS: COLACE CAP 100 MG PO SCH (20:09)
[2017-05-14] MEDS: PEPCID 20 MG IV PREMIX* 20 MG/50 ML BAG IV SCH (21:02)
[2017-05-14] MEDS: CRESTOR TAB 10 MG PO SCH (21:09)
[2017-05-15] MEDS: ATIVAN TAB 1 MG PO SCH ×4 (00:10→21:11)
[2017-05-15] MEDS: MORPHINE SULFATE INJ 2 MG INJ IVP PRN ×4 (01:44→22:17)
[2017-05-15] MEDS: NORCO 5/325 MG TAB PO SCH ×2 (02:53→04:51)
[2017-05-15 05:21] LABS: BASOPHILS % (AUTO) 0.4 % (0.2-1.0); EOSINOPHILS # (AUTO) 0.6 x10^3/uL (0.0-0.2); EOSINOPHILS % (AUTO) 4.4 % (0.9-2.9); HEMATOCRIT 39.6 % (42.0-54.0); HEMOGLOBIN 13.4 g/dL (13.5-18.0); LYMPHOCYTES % (AUTO) 7.9 % (21.0-51.0); MEAN CORPUSCULAR HEMOGLOBIN 31.3 pg (27.0-34.0); MEAN CORPUSCULAR HGB CONC 33.8 g/dL (33.0-35.0); MEAN CORPUSCULAR VOLUME 92.6 fL (80.0-100.0); MONOCYTES # (AUTO) 0.8 x10^3/uL (0.3-0.8); NEUTROPHILS # (AUTO) 10.4 x10^3/uL (2.2-4.8); NEUTROPHILS % (AUTO) 81.3 % (42.0-75.0); PLATELET COUNT 304 X10^3/uL (150.0-450.0); RED BLOOD COUNT 4.28 X10^6/uL (4.7-6.0); RED CELL DISTRIBUTION WIDTH 13.9 % (11.6-16.5); WHITE BLOOD COUNT 12.9 X10^3/uL (3.6-10.0)
[2017-05-15 05:26] LABS: ALANINE AMINOTRANSFERASE 17 Units/L (12-78); ALBUMIN 2.4 g/dL (3.4-5.0); ALKALINE PHOSPHATASE 70 Units/L (46-116); ASPARTATE AMINO TRANSFERASE 12 Units/L (15-37); BLOOD UREA NITROGEN 11 mg/dL (7-18); CALCIUM 8.5 mg/dL (8.5-10.1); CARBON DIOXIDE 30.2 mmol/L (21-32); CHLORIDE 100 mmol/L (98-107); COR CA(FOR HYPOALB) 9.8 mg/dL (8.5-10.1); COR NA(FOR HYPERGLY) 137 mmol/L (136-145); CREATININE 0.68 mg/dL (0.70-1.30); SODIUM 135 mmol/L (136-145); eGFR BLACK RACES > 60 (>60); eGFR NON BLACK RACES > 60 (>60)
[2017-05-15] MEDS: LANTISEPTIC TOP SCH ×3 (05:55→21:11)
[2017-05-15] MEDS: HumuLIN R SUBCUT PRN (05:56)
--- NOTE | 2017-05-15 06:23 | RAD ---
HISTORY: Shortness of breath Study: Chest AP portable Comparison: May 12, 2017 Findings: The heart remains enlarged. No definite congestive heart failure is noted. The aorta is ectatic. The lungs are generally hypoinflated. Diffuse severe and likely chronic interstitial lung disease is pres ent. No acute alveolar infiltrates or pleural effusions are identified. The bony thorax is unremarkab le. IMPRESSION: Cardiomegaly without congestive heart failure Diffuse severe chronic interstitial lung disease Reported By:
[2017-05-15] MEDS: THEO-DUR TAB 300 MG PO SCH (08:49)
[2017-05-15] MEDS: BROVANA IN SCH ×2 (09:42→20:32)
[2017-05-15] MEDS: XOPENEX 1.25 MG/3 ML NEBULE NEB SCH ×4 (09:42→20:33)
[2017-05-15] MEDS: PULMICORT NEB TX 0.5 MG NEB SCH ×2 (09:42→20:32)
[2017-05-15] MEDS ORDERED: MORPHINE SULFATE PCA 30 MG IV PRN (10:00)
[2017-05-15] MEDS ORDERED: MORPHINE SULFATE PCA 30 MG IV SCH (10:00)
--- NOTE | 2017-05-15 10:46 | PCM.PROG ---
Progress Note - Progress Note for Day of Date: 05/15/17 - Subjective Subjective: IS ALERT AND ORIENTED, SITTING UP IN BED ON MORNING ROUNDS. AT BEDSIDE. HE CONTINUES WITH SHORTNESS OF BREATH AND DIFFICULTY BREATHING. HE ALSO COMPLAINS OF ACHING AND PAIN ALL OVER. PATIENT APPEARS TO BE STRUGGLING FOR BREATH HE TALKS. HE IS NOTED WEARING HEATED HIGH FLOW OXYGEN. LUNGS ARE NOTED WITH WHEEZING IN BILATERAL LUNG ALBERTO. VITALS THIS MORNING ARE 97.9-99-24-99%-98/59. CBC WNL EXCEPT WBC 12.9, RBC 4.28, HGB 13.4, HCT 39.6. CMP WNL EXCEPT SODIUM 135, CREATININE 0.68, GLUCOSE 179, AST 12, TOTAL PROTEIN 6.0, ALBUMIN 2.4. CHEST XRAY REPORTS CARDIOMEGALY WITHOUT CONGESTIVE HEART FAILURE AND DIFFUSE SEVERE CHRONIC INTERSTITIAL LUNG DISEASE. PATIENT REPORTS THAT HE WISHES TO STOP TAKING ALL MEDICATIONS BY MOUTH. HE REPORTS THAT HE FEELS LIKE HE IS GETTING STRANGLED WHEN HE TAKES PILLS. PATIENT REPORTS THAT HE KNOWS THAT HE IS AT THE END OF HIS DISEASE PROCESS AND WISHES TO BE KEPT COMFORTABLE. HE WISHES TO SIGN A DNR. PATIENTS IS IN AGREEMENT. WE ARE IN AGREEMENT WITH PATIENTS WISHES. WE WILL DISCONTINUE ALL PO MEDICATIONS PER PATIENTS WISHES. WE WILL BEGIN PALLATIVE CARE AND CONTINUE TO MONITOR PATIENT. WE WILL START MORPHINE 5MG/HR DRIP AND VERSED 5MG/HR DRIP. - Past Medical Family Social History Past Med/Fam/Surg Hx: No changes since H&P Allergies: Allergies No Known Drug Allergies Allergy (Verified 04/03/17 13:40) - Review of Systems ROS: No change since H&P - Vital Signs and I&O's Vital Signs: Temperature 97.9 F Pulse Rate [Left Brachial] 99 Pulse Rate [Radial] 104 Pulse Rate 113 Respiratory Rate 48 Blood Pressure [Left Arm] 98/59 Blood Pressure [Right Arm] 109/72 Blood Pressure 159/83 O2 Sat by Pulse Oximetry 99 Intake and Output: Intake & Output 05/12/17 05/13/17 05/14/17 05/15/17 11:59 11:59 11:59 11:59 Intake Total 2003 1672 1430 1440 Output Total 975 900 475 900 Balance 1029 772 955 540 - Physical Exam Oriented: Normal Eyes: Normal Ear: Normal Nose: Normal Throat: Dry Respiratory: Generalized, Wheezes Cardiovascular: Normal : Normal Auscultation: Bowel Sounds: Normal Palpation: Normal Tenderness: Normal Skin: Normal Musculoskeletal: Normal Psychiatric: Normal Mood Description: Fearful Affect: Anxious Speech Pattern: Clear, Appropriate - Laboratory and Diagnostics Result Diagrams: 05/15/17 04:15 05/15/17 04:15 Labs: Laboratory WBC 12.9 X10^3/uL (3.6-10.0) H 05/15/17 04:15 RBC 4.28 X10^6/uL (4.7-6.0) L 05/15/17 04:15 Hgb 13.4 g/dL (13.5-18.0) L 05/15/17 04:15 Hct 39.6 % (42.0-54.0) L 05/15/17 04:15 MCV 92.6 fL (80.0-100.0) 05/15/17 04:15 MCH 31.3 pg (27.0-34.0) 05/15/17 04:15 MCHC 33.8 g/dL (33.0-35.0) 05/15/17 04:15 RDW 13.9 % (11.6-16.5) 05/15/17 04:15 Plt Count 304 X10^3/uL (150.0-450.0) 05/15/17 04:15 Plt Count Comment Adequate (ADEQUATE) 05/12/17 04:40 MPV 8.0 fL (7.4-11.0) 05/15/17 04:15 Neut % 81.3 % (42.0-75.0) H 05/15/17 04:15 Lymph % 7.9 % (21.0-51.0) L 05/15/17 04:15 [place] % 6.0 % (0.0-13.0) 05/15/17 04:15 Eos % 4.4 % (0.9-2.9) H 05/15/17 04:15 Baso % 0.4 % (0.2-1.0) 05/15/17 04:15 Neut # 10.4 x10^3/uL (2.2-4.8) H 05/15/17 04:15 Lymph # 1.0 X10^3/uL (1.3-2.9) L 05/15/17 04:15 [place] # 0.8 x10^3/uL (0.3-0.8) 05/15/17 04:15 Eos # 0.6 x10^3/uL (0.0-0.2) H 05/15/17 04:15 Baso # 0.0 X10^3/uL (0.0-0.1) 05/15/17 04:15 Absolute Nucleated RBC 0.0 /100WBC 05/15/17 04:15 Total Counted 100 05/12/17 04:40 Neutrophils % (Manual) 93 % (39-76) H 05/12/17 04:40 Band Neutrophils % 7 % (0-10) 05/09/17 03:50 Lymphocytes % (Manual) 2 % (13-43) L 05/12/17 04:40 Monocytes % (Manual) 5 % (4-9) 05/12/17 04:40 Eosinophils % (Manual) Cancelled 05/15/17 04:15 Basophils % (Manual) Cancelled 05/15/17 04:15 Metamyelocytes % Cancelled 05/15/17 04:15 Myelocytes % Cancelled 05/15/17 04:15 Promyelocytes % Cancelled 05/15/17 04:15 Nucleated RBCs Cancelled 05/15/17 04:15 Atypical Lymphocytes Cancelled 05/15/17 04:15 Blast Cells Cancelled 05/15/17 04:15 Smudge Cells Cancelled 05/15/17 04:15 Toxic Granulation Cancelled 05/15/17 04:15 Dohle Bodies Cancelled 05/15/17 04:15 Fernandez Rods Cancelled 05/15/17 04:15 Plt Clumps, EDTA Cancelled 05/15/17 04:15 Giant Platelets Cancelled 05/15/17 04:15 Plt Morphology Comment Normal (NORMAL) 05/12/17 04:40 RBC Morphology Normal (NORMAL) 05/12/17 04:40 Dimorphic RBCs Cancelled 05/15/17 04:15 Polychromasia Cancelled 05/15/17 04:15 Hypochromasia Cancelled 05/15/17 04:15 Poikilocytosis Cancelled 05/15/17 04:15 Basophilic Stippling Cancelled 05/15/17 04:15 Anisocytosis Cancelled 05/15/17 04:15 Microcytosis Cancelled 05/15/17 04:15 Macrocytosis Cancelled 05/15/17 04:15 Spherocytes Cancelled 05/15/17 04:15 Pappenheimer Bodies Cancelled 05/15/17 04:15 Sickle Cells Cancelled 05/15/17 04:15 Target Cells Cancelled 05/15/17 04:15 Tear Drop Cells Cancelled 05/15/17 04:15 Ovalocytes Cancelled 05/15/17 04:15 Stomatocytes Cancelled 05/15/17 04:15 Helmet Cells Cancelled 05/15/17 04:15 [place] Bodies Cancelled 05/15/17 04:15 [place] Rings Cancelled 05/15/17 04:15 [place] Cells Cancelled 05/15/17 04:15 Crenated Cell Cancelled 05/15/17 04:15 Acanthocytes (Spur) Cancelled 05/15/17 04:15 Rouleaux Cancelled 05/15/17 04:15 Schistocytes Cancelled 05/15/17 04:15 Sample Site R rad 05/07/17 04:59 ABG pH 7.460 (7.35-7.45) H 05/07/17 04:59 ABG pCO2 49.0 mmHg (35.0-45.0) H 05/07/17 04:59 ABG pO2 62.0 mmHg (80.0-100.0) L 05/07/17 04:59 ABG HCO3 34.8 mmol/L (22-26) H* 05/07/17 04:59 ABG O2 Saturation 93.0 % (90-100) 05/07/17 04:59 ABG Base Excess 9.5 mmol/L (-2.0-2.0) H 05/07/17 04:59 Brad Test Pos 05/07/17 04:59 A-a Gradient 340.0 mmHg 05/07/17 04:59 FiO2 65.000 05/07/17 04:59 Blood Gas Comments Cristi well, afh 05/07/17 04:59 Sodium 135 mmol/L (136-145) L 05/15/17 04:15 Corrected Sodium 137 mmol/L (136-145) 05/15/17 04:15 Potassium 3.9 mmol/L (3.5-5.1) 05/15/17 04:15 Chloride 100 mmol/L (98-107) 05/15/17 04:15 Carbon Dioxide 30.2 mmol/L (21-32) 05/15/17 04:15 BUN 11 mg/dL (7-18) 05/15/17 04:15 Creatinine 0.68 mg/dL (0.70-1.30) L 05/15/17 04:15 Est GFR (MDRD) Af Amer > 60 (>60) 05/15/17 04:15 Est GFR (MDRD) Non-Af > 60 (>60) 05/15/17 04:15 Glucose 179 mg/dL (65-99) H 05/15/17 04:15 Calcium 8.5 mg/dL (8.5-10.1) 05/15/17 04:15 Corrected Calcium 9.8 mg/dL (8.5-10.1) 05/15/17 04:15 Total Bilirubin 1.00 mg/dL (0.2-1.0) 05/15/17 04:15 AST 12 Units/L (15-37) L 05/15/17 04:15 ALT 17 Units/L (12-78) 05/15/17 04:15 Alkaline Phosphatase 70 Units/L (46-116) 05/15/17 04:15 Total Protein 6.0 g/dL (6.4-8.2) L 05/15/17 04:15 Albumin 2.4 g/dL (3.4-5.0) L 05/15/17 04:15 Globulin 3.6 g/dL (2.5-4.5) 05/15/17 04:15 Albumin/Globulin Ratio 0.7 Ratio (1.1-2.1) L 05/15/17 04:15 - Plan (1) [id number] respiratory failure Status: Acute Qualifiers: Respiratory failure complication: hypoxia and hypercapnia Qualified Code(s) : J96.21 - Acute and chronic respiratory failure with hypoxia; J96.22 - Acute and chronic respiratory failure with hypercapnia Plan: HEATED HIGH FLOW OXYGEN, DUONEB AND PULMICORT TREATMENTS, MONITOR ABG AND LABS, CONTINUE TO MONITOR PATIENT (2) Pulmonary fibrosis Status: Acute Plan: HEATED HIGH FLOW OXYGEN, DUONEB AND PULMICORT TREATMENTS, MONITOR ABG AND LABS, CONTINUE TO MONITOR PATIENT. (3) Diabetes mellitus Status: Chronic Qualifiers: Diabetes mellitus type: type 2 Diabetes mellitus complication status: with unspecified complications Diabetes mellitus algorithm developer insulin use: with mcfp use Qualified Code(s): E11.8 - Type 2 diabetes mellitus with unspecified complications; Z79.4 - detention (current) use of insulin Plan: CONTINUE SLIDING SCALE INSULIN, CONTINUE TO MONITOR (4) Hyperlipidemia Status: Chronic Qualifiers: Hyperlipidemia type: mixed hyperlipidemia Qualified Code(s): E78.2 - Mixed hyperlipidemia Plan: CONTINUE TO MONITOR (5) Palliative care status Status: Acute Plan: MORPHINE IV, VERSED IV, CONTINUE TO MONITOR
[2017-05-15] MEDS ORDERED: MORPHINE SULFATE INJ 2 MG INJ IVP ONE ×4 (11:14→12:00)
[2017-05-15] MEDS: LEVAQUIN PREMIX IV 500 MG 500 MG/100 ML BAG IV SCH (12:43)
[2017-05-15] MEDS: NS 1000 ML 1,000 ML IV SCH (12:43)
[2017-05-15] MEDS: FLONASE NASAL SPRAY ENOSTRIL SCH (12:43)
[2017-05-15] MEDS: PEPCID 20 MG IV PREMIX* 20 MG/50 ML BAG IV SCH ×2 (12:43→20:56)
[2017-05-15] MEDS: PIRFENIDONE PO SCH (12:44)
[2017-05-15] MEDS: SNACK - Diabetic Appropriate PO SCH (21:05)
[2017-05-16] MEDS: ATIVAN TAB 1 MG PO SCH ×7 (00:20→22:57)
[2017-05-16] MEDS: MORPHINE SULFATE INJ 2 MG INJ IVP PRN ×3 (02:00→14:24)
[2017-05-16] MEDS: LANTISEPTIC TOP SCH ×3 (06:02→21:00)
[2017-05-16] MEDS: LEVAQUIN PREMIX IV 500 MG 500 MG/100 ML BAG IV SCH (08:31)
[2017-05-16] MEDS: PEPCID 20 MG IV PREMIX* 20 MG/50 ML BAG IV SCH ×2 (08:31→22:56)
[2017-05-16] MEDS: NS 1000 ML 1,000 ML IV SCH (08:31)
[2017-05-16] MEDS: FLONASE NASAL SPRAY ENOSTRIL SCH (08:32)
[2017-05-16] MEDS: XOPENEX 1.25 MG/3 ML NEBULE NEB SCH ×4 (09:11→20:52)
[2017-05-16] MEDS: BROVANA IN SCH ×2 (09:11→20:52)
[2017-05-16] MEDS: PULMICORT NEB TX 0.5 MG NEB SCH ×2 (09:11→20:52)
[2017-05-16] MEDS: HumuLIN R SUBCUT PRN (17:16)
[2017-05-16] MEDS: SNACK - Diabetic Appropriate PO SCH (22:56)
[2017-05-17] MEDS: ATIVAN TAB 1 MG PO SCH ×7 (01:01→23:04)
[2017-05-17] MEDS: PEPCID 20 MG IV PREMIX* 20 MG/50 ML BAG IV SCH ×3 (01:02→20:33)
[2017-05-17] MEDS: MORPHINE SULFATE INJ 2 MG INJ IVP PRN ×6 (03:08→20:33)
[2017-05-17] MEDS: LANTISEPTIC TOP SCH ×4 (05:57→20:59)
[2017-05-17] MEDS: BROVANA IN SCH (08:57)
[2017-05-17] MEDS: XOPENEX 1.25 MG/3 ML NEBULE NEB SCH ×4 (08:57→20:17)
[2017-05-17] MEDS: PULMICORT NEB TX 0.5 MG NEB SCH (08:57)
[2017-05-17] MEDS: NS 1000 ML 1,000 ML IV SCH (09:02)
[2017-05-17] MEDS: LEVAQUIN PREMIX IV 500 MG 500 MG/100 ML BAG IV SCH (09:02)
[2017-05-17] MEDS: FLONASE NASAL SPRAY ENOSTRIL SCH (11:28)
[2017-05-17] MEDS: HumuLIN R SUBCUT PRN ×2 (14:50→17:09)
[2017-05-17] MEDS: SNACK - Diabetic Appropriate PO SCH (20:55)
[2017-05-18] MEDS: BROVANA IN SCH ×3 (00:04→20:57)
[2017-05-18] MEDS: PULMICORT NEB TX 0.5 MG NEB SCH ×3 (00:05→20:56)
[2017-05-18] MEDS: MORPHINE SULFATE INJ 2 MG INJ IVP PRN ×4 (02:18→22:46)
[2017-05-18] MEDS: ATIVAN TAB 1 MG PO SCH ×6 (05:07→21:41)
[2017-05-18] MEDS: HumuLIN R SUBCUT PRN ×3 (06:08→22:10)
[2017-05-18] MEDS: LANTISEPTIC TOP SCH ×3 (06:10→22:16)
[2017-05-18] MEDS: NS 1000 ML 1,000 ML IV SCH (08:39)
[2017-05-18] MEDS: FLONASE NASAL SPRAY ENOSTRIL SCH (08:39)
[2017-05-18] MEDS: LEVAQUIN PREMIX IV 500 MG 500 MG/100 ML BAG IV SCH (08:39)
[2017-05-18] MEDS: PEPCID 20 MG IV PREMIX* 20 MG/50 ML BAG IV SCH ×2 (08:39→20:30)
[2017-05-18] MEDS: XOPENEX 1.25 MG/3 ML NEBULE NEB SCH ×4 (09:25→20:56)
[2017-05-18] MEDS ORDERED: MAGIC MOUTHWASH MT PRN (16:12)
[2017-05-18] MEDS ORDERED: MILK OF MAGNESIA PO PRN (20:38)
[2017-05-18] MEDS: COLACE CAP 100 MG PO SCH (21:13)
[2017-05-18] MEDS: NYSTATIN SUSP MT SCH (21:13)
[2017-05-18] MEDS: SNACK - Diabetic Appropriate PO SCH (22:01)
[2017-05-19] MEDS: ATIVAN TAB 1 MG PO SCH ×7 (02:59→23:02)
[2017-05-19] MEDS: MORPHINE SULFATE INJ 2 MG INJ IVP PRN ×6 (03:47→21:38)
[2017-05-19] MEDS: HumuLIN R SUBCUT PRN ×2 (06:30→16:35)
[2017-05-19] MEDS: LANTISEPTIC TOP SCH ×4 (08:03→22:19)
[2017-05-19] MEDS: NYSTATIN SUSP MT SCH ×4 (08:04→22:21)
[2017-05-19] MEDS: LEVAQUIN PREMIX IV 500 MG 500 MG/100 ML BAG IV SCH (08:45)
[2017-05-19] MEDS: PEPCID 20 MG IV PREMIX* 20 MG/50 ML BAG IV SCH ×2 (08:45→20:00)
[2017-05-19] MEDS: COLACE CAP 100 MG PO SCH ×2 (08:45→22:21)
[2017-05-19] MEDS: FLONASE NASAL SPRAY ENOSTRIL SCH (08:45)
[2017-05-19] MEDS: BROVANA IN SCH ×2 (08:56→20:14)
[2017-05-19] MEDS: XOPENEX 1.25 MG/3 ML NEBULE NEB SCH ×4 (08:56→20:14)
[2017-05-19] MEDS: PULMICORT NEB TX 0.5 MG NEB SCH ×2 (08:56→20:14)
[2017-05-19] MEDS: NS 1000 ML 1,000 ML IV SCH (14:16)
[2017-05-19] MEDS ORDERED: HALDOL INJ IVP PRN (17:25)
[2017-05-19] MEDS: SNACK - Diabetic Appropriate PO SCH (22:18)
[2017-05-20] MEDS: MORPHINE SULFATE INJ 2 MG INJ IVP PRN ×3 (00:20→07:28)
[2017-05-20 01:38] VITALS: BP 86/53
[2017-05-20] MEDS: ATIVAN TAB 1 MG PO SCH ×6 (03:10→22:15)
[2017-05-20] MEDS ORDERED: MORPHINE SULFATE INJ 2 MG INJ IVP ONE (04:16)
[2017-05-20] MEDS ORDERED: ATIVAN INJ 2 MG VIAL IVP ONE (05:41)
[2017-05-20] MEDS: HumuLIN R SUBCUT PRN (06:24)
[2017-05-20] MEDS: LANTISEPTIC TOP SCH ×3 (07:30→21:40)
[2017-05-20] MEDS ORDERED: MORPHINE SULFATE PCA 30 MG IV SCH (08:00)
[2017-05-20] MEDS: VERSED 100 MG in NS 100 ML IV 80 ML IV PRN ×2 (08:09→22:13)
[2017-05-20] MEDS ORDERED: DURAGESIC 100 mcg/HR PATCH TD SCH (09:00)
[2017-05-20] MEDS ORDERED: MORPHINE SULFATE PCA 30 MG IV PRN (09:00)
[2017-05-20] MEDS: COLACE CAP 100 MG PO SCH ×2 (09:00→20:53)
[2017-05-20] MEDS: XOPENEX 1.25 MG/3 ML NEBULE NEB SCH ×4 (09:22→20:53)
[2017-05-20] MEDS: PULMICORT NEB TX 0.5 MG NEB SCH ×2 (09:22→20:53)
[2017-05-20] MEDS: BROVANA IN SCH ×2 (09:22→20:53)
--- NOTE | 2017-05-20 09:37 | PCM.PROG ---
Progress Note - Progress Note for Day of Date: 05/20/17 - Subjective Subjective: IS LYING IN BED ON MORNING ROUNDS. AND FAMILY ARE AT BEDSIDE. PATIENT COMPLAINTS OF SHORTNESS OF BREATH AND APPEARS TO BE HAVING A DIFFICULT TIME BREATHING. HE ALSO COMPLAINS OF ACHING AND PAIN ALL OVER. HE IS NOTED WEARING BIPAP AT THIS TIME. VITALS THIS AM ARE [id number]. HE REFUSED AM LABS AND XRAY. ON SATURDAY, PATIENT REFUSED MORPHINE AND VERSED DRIPS AFTER DISCUSSING AND AGREEING TO PLAN WHEN ROUNDS WERE MADE. THIS MORNING , PATIENT IS REQUESTING MORPHINE AND VERSED DRIPS TO MAKE HIM COMFORTABLE. PATIENTS IS IN AGREEMENT. WE ARE IN AGREEMENT WITH PATIENTS WISHES. WE WILL BEGIN PALLATIVE CARE AND CONTINUE TO MONITOR PATIENT. WE WILL START MORPHINE 5MG/HR DRIP AND VERSED 5MG/HR DRIP. WE WILL ALSO PLACE A DURAGESIC PATCH FOR COMFORT. - Past Medical Family Social History Past Med/Fam/Surg Hx: No changes since H&P Allergies: Allergies No Known Drug Allergies Allergy (Verified 04/03/17 13:40) - Review of Systems ROS: No change since H&P - Vital Signs and I&O's Vital Signs: Temperature 99.3 F Pulse Rate [Left Brachial] 113 Pulse Rate [Radial] 104 Pulse Rate 111 Respiratory Rate 45 Blood Pressure [Left Arm] 86/53 Blood Pressure [Right Arm] 109/72 Blood Pressure 159/83 O2 Sat by Pulse Oximetry 91 Intake and Output: Intake & Output 05/17/17 05/18/17 05/19/17 05/20/17 11:59 11:59 11:59 11:59 Intake Total 1420 1130 660 610 Output Total 875 900 275 Balance 545 230 385 610 - Physical Exam Oriented: Normal Eyes: Normal Ear: Normal Nose: Normal Throat: Dry Respiratory: Generalized, Wheezes Cardiovascular: Normal : Normal Auscultation: Bowel Sounds: Normal Palpation: Normal Tenderness: Normal Skin: Normal Musculoskeletal: Normal Psychiatric: Normal Mood Description: Fearful Affect: Anxious Speech Pattern: Clear, Appropriate - Laboratory and Diagnostics Result Diagrams: 05/15/17 04:15 05/15/17 04:15 Labs: Laboratory WBC 12.9 X10^3/uL (3.6-10.0) H 05/15/17 04:15 RBC 4.28 X10^6/uL (4.7-6.0) L 05/15/17 04:15 Hgb 13.4 g/dL (13.5-18.0) L 05/15/17 04:15 Hct 39.6 % (42.0-54.0) L 05/15/17 04:15 MCV 92.6 fL (80.0-100.0) 05/15/17 04:15 MCH 31.3 pg (27.0-34.0) 05/15/17 04:15 MCHC 33.8 g/dL (33.0-35.0) 05/15/17 04:15 RDW 13.9 % (11.6-16.5) 05/15/17 04:15 Plt Count 304 X10^3/uL (150.0-450.0) 05/15/17 04:15 Plt Count Comment Adequate (ADEQUATE) 05/12/17 04:40 MPV 8.0 fL (7.4-11.0) 05/15/17 04:15 Neut % 81.3 % (42.0-75.0) H 05/15/17 04:15 Lymph % 7.9 % (21.0-51.0) L 05/15/17 04:15 Swift % 6.0 % (0.0-13.0) 05/15/17 04:15 Eos % 4.4 % (0.9-2.9) H 05/15/17 04:15 Baso % 0.4 % (0.2-1.0) 05/15/17 04:15 Neut # 10.4 x10^3/uL (2.2-4.8) H 05/15/17 04:15 Lymph # 1.0 X10^3/uL (1.3-2.9) L 05/15/17 04:15 Swift # 0.8 x10^3/uL (0.3-0.8) 05/15/17 04:15 Eos # 0.6 x10^3/uL (0.0-0.2) H 05/15/17 04:15 Baso # 0.0 X10^3/uL (0.0-0.1) 05/15/17 04:15 Absolute Nucleated RBC 0.0 /100WBC 05/15/17 04:15 Total Counted 100 05/12/17 04:40 Neutrophils % (Manual) 93 % (39-76) H 05/12/17 04:40 Band Neutrophils % 7 % (0-10) 05/09/17 03:50 Lymphocytes % (Manual) 2 % (13-43) L 05/12/17 04:40 Monocytes % (Manual) 5 % (4-9) 05/12/17 04:40 Eosinophils % (Manual) Cancelled 05/15/17 04:15 Basophils % (Manual) Cancelled 05/15/17 04:15 Metamyelocytes % Cancelled 05/15/17 04:15 Myelocytes % Cancelled 05/15/17 04:15 Promyelocytes % Cancelled 05/15/17 04:15 Nucleated RBCs Cancelled 05/15/17 04:15 Atypical Lymphocytes Cancelled 05/15/17 04:15 Blast Cells Cancelled 05/15/17 04:15 Smudge Cells Cancelled 05/15/17 04:15 Toxic Granulation Cancelled 05/15/17 04:15 Dohle Bodies Cancelled 05/15/17 04:15 Fernandez Rods Cancelled 05/15/17 04:15 Plt Clumps, EDTA Cancelled 05/15/17 04:15 Giant Platelets Cancelled 05/15/17 04:15 Plt Morphology Comment Normal (NORMAL) 05/12/17 04:40 RBC Morphology Normal (NORMAL) 05/12/17 04:40 Dimorphic RBCs Cancelled 05/15/17 04:15 Polychromasia Cancelled 05/15/17 04:15 Hypochromasia Cancelled 05/15/17 04:15 Poikilocytosis Cancelled 05/15/17 04:15 Basophilic Stippling Cancelled 05/15/17 04:15 Anisocytosis Cancelled 05/15/17 04:15 Microcytosis Cancelled 05/15/17 04:15 Macrocytosis Cancelled 05/15/17 04:15 Spherocytes Cancelled 05/15/17 04:15 Pappenheimer Bodies Cancelled 05/15/17 04:15 Sickle Cells Cancelled 05/15/17 04:15 Target Cells Cancelled 05/15/17 04:15 Tear Drop Cells Cancelled 05/15/17 04:15 Ovalocytes Cancelled 05/15/17 04:15 Stomatocytes Cancelled 05/15/17 04:15 Helmet Cells Cancelled 05/15/17 04:15 Barnes-Hector Bodies Cancelled 05/15/17 04:15 Arthur Rings Cancelled 05/15/17 04:15 Stockdale Cells Cancelled 05/15/17 04:15 Crenated Cell Cancelled 05/15/17 04:15 Acanthocytes (Spur) Cancelled 05/15/17 04:15 Rouleaux Cancelled 05/15/17 04:15 Schistocytes Cancelled 05/15/17 04:15 Sample Site R rad 05/07/17 04:59 ABG pH 7.460 (7.35-7.45) H 05/07/17 04:59 ABG pCO2 49.0 mmHg (35.0-45.0) H 05/07/17 04:59 ABG pO2 62.0 mmHg (80.0-100.0) L 05/07/17 04:59 ABG HCO3 34.8 mmol/L (22-26) H* 05/07/17 04:59 ABG O2 Saturation 93.0 % (90-100) 05/07/17 04:59 ABG Base Excess 9.5 mmol/L (-2.0-2.0) H 05/07/17 04:59 Brad Test Pos 05/07/17 04:59 A-a Gradient 340.0 mmHg 05/07/17 04:59 FiO2 65.000 05/07/17 04:59 Blood Gas Comments Cristi well, afh 05/07/17 04:59 Sodium 135 mmol/L (136-145) L 05/15/17 04:15 Corrected Sodium 137 mmol/L (136-145) 05/15/17 04:15 Potassium 3.9 mmol/L (3.5-5.1) 05/15/17 04:15 Chloride 100 mmol/L (98-107) 05/15/17 04:15 Carbon Dioxide 30.2 mmol/L (21-32) 05/15/17 04:15 BUN 11 mg/dL (7-18) 05/15/17 04:15 Creatinine 0.68 mg/dL (0.70-1.30) L 05/15/17 04:15 Est GFR (MDRD) Af Amer > 60 (>60) 05/15/17 04:15 Est GFR (MDRD) Non-Af > 60 (>60) 05/15/17 04:15 Glucose 179 mg/dL (65-99) H 05/15/17 04:15 POC Glucose (mg/dL) 280 mg/dL (65-99) H 05/20/17 06:19 Calcium 8.5 mg/dL (8.5-10.1) 05/15/17 04:15 Corrected Calcium 9.8 mg/dL (8.5-10.1) 05/15/17 04:15 Total Bilirubin 1.00 mg/dL (0.2-1.0) 05/15/17 04:15 AST 12 Units/L (15-37) L 05/15/17 04:15 ALT 17 Units/L (12-78) 05/15/17 04:15 Alkaline Phosphatase 70 Units/L (46-116) 05/15/17 04:15 Total Protein 6.0 g/dL (6.4-8.2) L 05/15/17 04:15 Albumin 2.4 g/dL (3.4-5.0) L 05/15/17 04:15 Globulin 3.6 g/dL (2.5-4.5) 05/15/17 04:15 Albumin/Globulin Ratio 0.7 Ratio (1.1-2.1) L 05/15/17 04:15 - Plan (1) [id number] respiratory failure Status: Acute Qualifiers: Respiratory failure complication: hypoxia and hypercapnia Qualified Code(s) : J96.21 - Acute and chronic respiratory failure with hypoxia; J96.22 - Acute and chronic respiratory failure with hypercapnia Plan: HEATED HIGH FLOW OXYGEN, DUONEB AND PULMICORT TREATMENTS, MONITOR ABG AND LABS, CONTINUE TO MONITOR PATIENT (2) Pulmonary fibrosis Status: Acute Plan: HEATED HIGH FLOW OXYGEN, DUONEB AND PULMICORT TREATMENTS, MONITOR ABG AND LABS, CONTINUE TO MONITOR PATIENT. (3) Diabetes mellitus Status: Chronic Qualifiers: Diabetes mellitus type: type 2 Diabetes mellitus complication status: with unspecified complications Diabetes mellitus terminologist insulin use: with terminologist use Qualified Code(s): E11.8 - Type 2 diabetes mellitus with unspecified complications; Z79.4 - oysterman (current) use of insulin Plan: CONTINUE SLIDING SCALE INSULIN, CONTINUE TO MONITOR (4) Hyperlipidemia Status: Chronic Qualifiers: Hyperlipidemia type: mixed hyperlipidemia Qualified Code(s): E78.2 - Mixed hyperlipidemia Plan: CONTINUE TO MONITOR (5) Palliative care status Status: Acute Plan: MORPHINE IV, VERSED IV, DURAGESIC PATCH 200MG TD Q3D, CONTINUE TO MONITOR
[2017-05-20] MEDS: FLONASE NASAL SPRAY ENOSTRIL SCH (09:56)
[2017-05-20] MEDS: NS 1000 ML 1,000 ML IV SCH (09:57)
[2017-05-20] MEDS: LEVAQUIN PREMIX IV 500 MG 500 MG/100 ML BAG IV SCH (09:57)
[2017-05-20] MEDS: PEPCID 20 MG IV PREMIX* 20 MG/50 ML BAG IV SCH ×2 (09:58→20:52)
[2017-05-20] MEDS: NYSTATIN SUSP MT SCH ×4 (09:58→21:39)
[2017-05-20] MEDS: SNACK - Diabetic Appropriate PO SCH (20:52)
[2017-05-20] MEDS: MORPHINE SULFATE PCA 30 MG IV PRN (21:31)
[2017-05-21] MEDS: MORPHINE SULFATE PCA 30 MG IV PRN ×2 (01:03→04:24)
[2017-05-21] MEDS: ATIVAN TAB 1 MG PO SCH ×2 (02:55→06:03)
[2017-05-21] MEDS: LANTISEPTIC TOP SCH (05:20)
== END 2017-05-21 07:03 | disposition expired | DRG 949 ==
LOC: MED/SURG 15:59
PROVIDERS: ADMIT Internal Medicine; ATTEND Internal Medicine
DX: Z51.89 Encounter for other specified aftercare (principal); J84.10 Pulmonary fibrosis, unspecified; J96.21 Acute and chronic respiratory failure with hypoxia; F41.8 Other specified anxiety disorders; J44.9 Chronic obstructive pulmonary disease, unspecified; M13.89 Other specified arthritis, multiple sites; E11.65 Type 2 diabetes mellitus with hyperglycemia; E78.2 Mixed hyperlipidemia; I51.7 Cardiomegaly; Z79.4 Long term (current) use of insulin
CPT/HCPCS: 36415; 36600; 71010; 80053; 82803; 85025; 94660; 99231; A4216; A4222; C9113; S0028; J0692; J1630; J1815; J1956; J2060; J2250; J2270; J2271; J2405; J2920; J7626; J7644